=== PATIENT | female | born 1950 | race Caucasian/White ===

== ENCOUNTER 2017-09-23 07:38 | Outpatient (CLI) | payer BC | END 2017-09-23 07:39 | disposition home or self-care (01) | LOC: BICMAMMO 07:38 | PROVIDERS: ATTEND Obstetrics & Gynecology | DX: Z12.31 Encounter for screening mammogram for malignant neoplasm of breast (principal) | CPT/HCPCS: 77063; 77067 ==

== ENCOUNTER 2017-10-07 08:01 | Observation (INO) | payer BC ==
[2017-10-07 08:32] LABS: #Basophils 0.1 thou/uL (0.0-0.2); #Eosinphils 0.1 thou/uL (0.0-0.7); #Lymphocytes 1.4 thou/uL (1.20-3.40); #Monocytes 0.4 thou/uL (0.11-0.59); #Neutrophils 2.7 thou/uL (1.40-6.50); %Basophils 2.6 % (0.0-1.0); %Eosinophils 1.1 % (0.0-10.0); %Lymphocytes 30.3 % (21.0-51.0); %Monocytes 9.1 % (0.0-10.0); %Neutrophils 56.9 % (42.0-75.0); Hemoglobin 11.9 g/dL (12.0-16.0); Mean Corpuscular HGB CONC 31.5 g/dL (32.0-36.0); Mean Corpuscular Hemoglobin 29.3 pg (27.0-31.0); Mean Platelet Volume 7.1 fL (7.4-10.4); Platelet Count 308 thou/uL (130-400); RBC Distribution Width 14.4 % (11.5-14.5); Red Blood Cell (RBC) Count 4.05 mill/uL (4.20-5.40); White Blood Cell (WBC) Count 4.7 thou/uL (4.8-10.8)
--- NOTE | 2017-10-07 08:50 | RAD ---
CHEST ONE VIEW: History: Chest pain. Comparison: 11-29-15 FINDINGS: Cardiac silhouette is magnified and upper limits of normal in size. Pulmonary vasculature is slightly engorged with widespread reticular nodular interstitial prominence. Mediastinum is midline with aort ic calcification. There is no evidence of pneumothorax. IMPRESSION: 1. Mild pulmonary vascular congestion. 2. Atherosclerosis. POS: [facility]
[2017-10-07 08:54] LABS: CKMB 0.9 ng/mL (0-6.6); Troponin I Less than 0.010 ng/mL (< 0.028)
[2017-10-07] MEDS ORDERED: Fentanyl 100 MCG/2 ML VIAL ONE (09:01)
[2017-10-07] MEDS ORDERED: Ondansetron HCl/PF 4 MG/2 ML Vial ONE (09:08)
[2017-10-07 09:26] LABS: ALT (SGPT) 10 U/L (8-55); AST (SGOT) 13 U/L (5-34); Albumin 3.7 g/dL (3.4-4.8); Alkaline Phosphatase 78 U/L (40-150); Anion Gap 12 mmol/L (10-20); BUN (Urea Nitrogen) 5 mg/dL (9.8-20.1); Bilirubin, Total 0.5 mg/dL (0.2-1.2); CK (CPK) 32 U/L (29-168); Calc. Creatinine Clearance 0 mL/min (70-130); Calcium 9.3 mg/dL (7.8-10.44); Carbon Dioxide 24 mmol/L (23-31); Chloride 103 mmol/L (98-107); Estimated GFR-MDRD 79; Globulin 2.7 g/dL (2.4-3.5); Glucose 82 mg/dL (80-115); Lipase 15 U/L (8-78); Potassium 3.9 mmol/L (3.5-5.1); Protein, Total 6.4 g/dL (6.0-8.3); Sodium 135 mmol/L (136-145)
[2017-10-07] MEDS ORDERED: Pantoprazole 40 MG VIAL ONE (10:02)
[2017-10-07 11:48] LABS: Troponin I 0.015 ng/mL (< 0.028)
[2017-10-07] MEDS ORDERED: Ondansetron HCl/PF 4 MG/2 ML Vial IVP PRN (12:14)
[2017-10-07] MEDS ORDERED: Acetaminophen 325 MG TAB PO PRN (12:14)
[2017-10-07] MEDS ORDERED: Ondansetron ODT 4 MG TAB SL PRN (12:14)
[2017-10-07 12:16] VITALS: BMI 26.6
[2017-10-07] MEDS ORDERED: Nitroglycerin 0.4 MG TAB (25 Tab Bottle) PO PRN (12:39)
--- NOTE | 2017-10-07 13:16 | HP ---
DATE OF ADMISSION: 10/07/2017 HISTORY OF PRESENT ILLNESS: This is a 66-year-old white female with a history of anxiety disorder an d chest pain and vasospastic angina, followed by Dr. Rodriguez, who presents with chest pain. Patient has been doing well over the past year. Approximately 2 weeks ago, she began developing chest pain off and on throughout the day. The pain radiated to her left shoulder. She has had some mild nausea, bu t no vomiting. No complaints of diaphoresis. 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 She is in the process of planning a wedding and s he has become very unbearable. She has been quite demanding and the patient has been quite stressed from this ordeal. PAST MEDICAL HISTORY: 1. Vasospastic angina/Prinzmetal. 2. History of STEMI. 3. Reactive airway disease. 4. History of atrial fibrillation/flutter, 2006 5. Duodenal ulcer in 1998 6. Cardiac arrhythmias, treated since 1982. 7. Pernicious anemia, 2010. 8. Iron deficiency anemia, 2010 9. History of arthritis, right knee 10. History of hyperthyroidism, secondary to amiodarone. ALLERGIES: MORPHINE, IODINE, SHELLFISH, SEAFOOD, SHRIMP, ADHESIVE TAPE, TRAZODONE, and CAFFEINE. MEDICATIONS: Aspirin 81 daily, Protonix 40 b.i.d. p.r.n., isosorbide mononitrate 120 mg daily, [place] ax daily, Flonase 2 sprays each nostril daily, and B12 1000 mcg monthly, Cymbalta 60 daily, diltiazem 120 mg daily, Ranexa 1000 b.i.d., Singulair 10 daily, Zyrtec 10 daily, Pulmicort 2 puffs b.i.d. p.r. n. PAST SURGICAL HISTORY: Include appendectomy in 1968, 1982, right shoulder impingement and r otator cuff repair in 1997, cardiac ablation in 2006, 2007, 2008, 2009. Cardiac catheterization last one July 2014, clean vessels. Gallbladder 07/2010. History of myocardial infarction with eleva demarcus troponins in 2012 and 2013, colonoscopy 2010, abdominal adhesion repair in 1971, abdominal hyster ectomy in 1993. REVIEW OF SYSTEMS: As above. PHYSICAL EXAMINATION: VITAL SIGNS: Temperature 98.0, pulse 62, pulse ox 98, blood pressure 142/65, respirations 16. GENERAL: Patient in no acute distress at this time. HEENT: Clear. HEART: Regular rate and rhythm. LUNGS: Clear. ABDOMEN: Soft, nontender. EXTREMITIES: With no edema. LABORATORY AND X-RAY FINDINGS: Sodium 135, potassium 3.9, troponin less than 0.010 and 0.015, creati nine 0.74, BUN 5. White count 4.7, H and H 11 and 37. Chest x-ray: Mild pulmonary vascular congest ion. ASSESSMENT: 1. Chest pain, rule out myocardial infarction, rule out non-ST elevation myocardial infarction. 2. Acute situational disorder. The patient quite stressed from a pending wedding coming up in December. This is her main issue going on now. 3. History of vasospastic angina. 4. Reactive airway disease. 5. History of atrial fibrillation/flutter, 2006 6. History of peptic ulcer disease. 7. Pernicious anemia. 8. History of hyperthyroidism secondary to amiodarone. 9. Anxiety disorder. PLAN: 1. Consult Dr. Rodriguez. 2. Serial troponin levels. 3. Echocardiogram and Cardiolite. 4. Check TSH, T3, T4.
[2017-10-07 13:39] LABS: Free Thyroxine Index 1.78 (1.4-3.1); T4 6.3 ug/dL (4.87-11.72); Thyroid Stimulating Hormone 0.8117 uIU/mL (0.35-4.94)
[2017-10-07] MEDS ORDERED: Regadenoson 0.4 MG/5 ML SYRINGE ONE (14:58)
[2017-10-07 16:37] VITALS: BP 134/60; TEMP 97.5
--- NOTE | 2017-10-07 16:57 | NM ---
CARDIAC SPECT: CLINICAL HISTORY: 66-year-old female with chest pain, coronary artery disease, atrial fibrillation. TECHNIQUE: A myocardial perfusion scan was performed using the single isotope one day protocol with technetium-9 9m sestamibi. 9 mCi were injected intravenously for the rest exam followed by 29 mCi for the stress e xam. Pharmacologic stress with Lexiscan was monitored and interpreted by Maame Perez NP. FINDINGS: A fixed defect is seen in the distal anterior wall. Wall thickening and motion in this region is norm al. This finding is most likely due to breast attenuation artifact rather than a scar. No reversible defects are seen. GATED SPECT LVEF: 70%. WALL MOTION EXAM: Normal. IMPRESSION: No evidence of reversible ischemia. POS: [facility]
[2017-10-07] MEDS ORDERED: ALPRAZolam 0.25 MG TAB PO PRN (17:19)
[2017-10-07] MEDS ORDERED: Acetaminophen 500 MG TAB PO PRN (17:19)
[2017-10-07] MEDS ORDERED: ALPRAZolam 0.5 MG TAB PO PRN (17:20)
[2017-10-07] MEDS ORDERED: Benzonatate 100 MG CAP PO PRN (17:20)
[2017-10-07] MEDS ORDERED: Dicyclomine 10 MG CAP PO PRN (17:22)
[2017-10-07] MEDS ORDERED: Docusate 100 MG CAP PO PRN (17:30)
[2017-10-07] MEDS ORDERED: guaiFENesin ER 600 MG TAB PO PRN (17:30)
[2017-10-07] MEDS ORDERED: PROVENTIL INHALER 6.7 G (200 INHALATIONS) INH PRN (17:32)
[2017-10-07] MEDS ORDERED: Ondansetron ODT 4 MG TAB PO PRN (17:33)
[2017-10-07] MEDS ORDERED: traMADol HCl 50 MG TAB PO PRN ×2 (17:36)
[2017-10-07] MEDS ORDERED: Zolpidem Tartrate 5 MG TAB PO PRN (17:37)
[2017-10-07] MEDS ORDERED: Mometasone Furoate 120 PUFF 220 MCG INH SCH (18:30)
[2017-10-07 18:33] LABS: Troponin I Less than 0.010 ng/mL (< 0.028)
[2017-10-07] MEDS ORDERED: Montelukast Sodium 10 mg Tablet PO SCH (21:00)
[2017-10-07] MEDS ORDERED: Loratadine 10 MG TAB PO SCH (21:00)
[2017-10-07] MEDS ORDERED: Fluticasone Propionate Nasal Spray 16 gm Bottle NASAL SCH (21:00)
--- NOTE | 2017-10-07 21:13 | CON ---
DATE OF CONSULTATION: 10/07/2017 DATE OF ADMISSION: 10/07/2017 INDICATION FOR CONSULTATION: A 66-year-old female with a history of coronary vasospastic disease. S he has been catheterized a couple of years ago, was found to have single vessel CAD involving a diago nal branch, otherwise, she had normal coronary arteries. She has had multiple cardiac catheterizatio ns. 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 She awoke and started having chest discomfort actually started about 10 days ago on and off and then finally decided that the pain was worse than she would had and was not relieved by the nitro glycerin and she presented to the emergency room previously. Then, she has been doing very well for the last year or so and has been well controlled on the medical management. At this time, she has on ly mild chest discomfort. She had a stress test today, which showed no evidence of ischemia. Cardia c enzymes are negative. EKG is unremarkable. PAST MEDICAL HISTORY: Significant for Prinzmetal angina, history in the past of non-ST segment eleva tion myocardial infarction or ST segment elevation myocardial infarction may have involved in the ape x. She has reactive airway disease, history of atrial fibrillation/flutter, for which she has underg one ablation. She has a history of pernicious anemia, duodenal ulcer, iron-deficiency anemia. She h as had arthritis in the right knee. She has a history of side effects to amiodarone, which would cau se her to have some hypothyroidism. ALLERGIES: She has allergies to AMIODARONE, MORPHINE, IODINE, SEAFOOD, SHELLFISH, SHRIMP, ADHESIVE T APE, TRAZODONE, and CAFFEINE. MEDICATIONS: Included aspirin, isosorbide mononitrate which is 120 mg every day, MiraLax, Protonix 4 0 mg b.i.d., Flonase nasal spray, B12 injections, Cymbalta 60 mg daily, diltiazem 120 mg a day, Ranex a 1000 mg b.i.d., Singulair 10 mg a day, Zyrtec 10 mg a day, and Pulmicort 2 puffs b.i.d. PAST SURGICAL HISTORY: Also includes an appendectomy, right shoulder surgery. She has , ca rdiac ablations, cardiac catheterizations. She has had a cholecystectomy, colonoscopy. She has had abdominal adhesion repairs and she has had abdominal hysterectomy. REVIEW OF SYSTEMS: Twelve-point review of systems is unremarkable except what was noted in the histo ry of present illness. PHYSICAL EXAMINATION: GENERAL: Reveals a well-developed, well-nourished female who is in no acute distress. She is alert and oriented. VITAL SIGNS: Stable. She has blood pressure 134/60. She is afebrile. Heart rate is 70, respirator y rate is 16. HEENT: Shows the head to be normocephalic, atraumatic. Carotid pulses are present. There are no br uits. CHEST: Clear to auscultation without rales, rhonchi, or wheezing. CARDIOVASCULAR: Exam reveals a regular rate and rhythm with normal S1, S2. There is no S3, S4. The re were no significant murmurs, heaves, thrills, bruits, or rubs. ABDOMEN: Shows obesity with positive bowel sounds. No organomegaly or masses are noted. Femoral pu lses are present. EXTREMITIES: Showed no clubbing, cyanosis, or edema. Pedal pulses are present. NEUROLOGIC: The patient is intact. SKIN: Warm and dry. IMAGING: Her EKG shows a normal sinus rhythm and no acute changes. She does have some very nonspeci fic ST segment changes, but these are unchanged. There is no acute findings. Her stress test is neg ative. Cardiac enzymes are unremarkable. IMPRESSION: 1. History of vasospastic coronary artery disease, which appears to be stable at this time. She garcia s have intermittent discomfort, which normally is relieved by nitroglycerin. She does appear to be u ndue stress at this time in which anxiety plays quite a large role, I believe in some of her symptoms . Otherwise, she remains stable and from a cardiac standpoint, could be discharged home today or damian orrow morning. I would continue her present medications. 2. As far as her other assessment and plans, she has some history of mild hypertension, which is und er very good control at this time. 3. She has a history of hypercholesterolemia, we will continue on the same medications. 4. History of anxiety. She will be followed by her primary care physician for this. Otherwise, I sarah blair she remains stable and I will see her back in the office in the next 1-2 months.
[2017-10-08] MEDS ORDERED: Polyethylene Glycol 3350 17 GM Packet PO SCH (09:00)
[2017-10-08] MEDS ORDERED: Aspirin 325 MG TAB PO SCH (09:00)
[2017-10-08] MEDS ORDERED: Enoxaparin Sodium 80 MG/0.8 ML SYRINGE SC SCH (09:00)
[2017-10-08] MEDS ORDERED: DULoxetine 60 MG CAP PO SCH (09:00)
[2017-10-08] MEDS ORDERED: Enoxaparin Sodium 40 MG/0.4 ML SYRINGE SC SCH (09:00)
--- NOTE | 2017-10-08 14:43 | DIS ---
DISCHARGE DIAGNOSES: 1. Chest pain. 2. Vasospastic angina. 3. History of ST-segment elevation myocardial infarction. 4. Reactive airway disease. 5. History of atrial fibrillation/flutter. 6. History of peptic ulcer disease. 7. History of cardiac arrhythmia. 8. Pernicious anemia. 9. Iron deficiency anemia. 10. History of hyperthyroidism secondary to amiodarone. DISCHARGE MEDICATIONS: Aspirin 81 daily, Protonix 40 b.i.d. p.r.n., isosorbide mononitrate 120 daily , MiraLax daily, Flonase daily, B12 monthly, Cymbalta 60 daily, diltiazem 120 daily, Ranexa 1000 b.i. d., Singulair 10 daily, Zyrtec 10 mg daily, Pulmicort 2 puffs b.i.d. p.r.n. PROCEDURES: Cardiolite stress test negative. CONSULTS: Dr. Rodriguez. BRIEF HISTORY: A 66-year-old white female with history of vasospastic angina who presents with chest pain. She has done fairly well over the past year. Two weeks ago she began developing chest pain o ff and on throughout the day. It became progressively worse. It began radiating to her left shoulde r and therefore presented to the emergency room. However, she has been under stress lately. She was having issues with her [id number] who is planning for their wedding. This has become a very st ressful event. HOSPITAL COURSE: The patient underwent a Cardiolite stress test which was found to be unremarkable. She was seen by Dr. Rodriguez and was felt to be stable at this time. She will be discharged home today and follow up in the office in 1 week.
== END 2017-10-07 18:34 | disposition home or self-care (01) ==
LOC: ERS 08:01 → 2NO 10:07 → INTOOBSV 10:07
PROVIDERS: ADMIT Family Medicine; ATTEND Family Medicine
DX: I25.111 Atherosclerotic heart disease of native coronary artery with angina pectoris with documented spasm (principal); I25.2 Old myocardial infarction; I48.91 Unspecified atrial fibrillation; I48.92 Unspecified atrial flutter; Z87.11 Personal history of peptic ulcer disease; D51.0 Vitamin B12 deficiency anemia due to intrinsic factor deficiency; D50.9 Iron deficiency anemia, unspecified; M17.11 Unilateral primary osteoarthritis, right knee; F41.9 Anxiety disorder, unspecified; E78.00 Pure hypercholesterolemia, unspecified; Z88.8 Allergy status to other drugs, medicaments and biological substances; Z88.5 Allergy status to narcotic agent; Z91.048 Other nonmedicinal substance allergy status; Z91.041 Radiographic dye allergy status; Z91.013 Allergy to seafood; Z90.49 Acquired absence of other specified parts of digestive tract; Z90.710 Acquired absence of both cervix and uterus; Z98.890 Other specified postprocedural states; Z79.899 Other long term (current) drug therapy; Z79.51 Long term (current) use of inhaled steroids; Z79.82 Long term (current) use of aspirin
CPT/HCPCS: 36415; 71045; 78452; 80053; 82550; 82553; 83690; 84436; 84443; 84479; 84484; 85025; 93005; 93017; 94760; 96374; 96375; A9500; C9113; G0378; J2405; J2785; J3010

== ENCOUNTER 2017-11-07 13:15 | Inpatient (IN) | payer BC ==
[2017-11-07] MEDS ORDERED: Fentanyl 100 MCG/2 ML VIAL ONE (13:34)
[2017-11-07 13:49] LABS: #Basophils 0.1 thou/uL (0.0-0.2); #Lymphocytes 1.5 thou/uL (1.20-3.40); #Monocytes 0.5 thou/uL (0.11-0.59); #Neutrophils 2.5 thou/uL (1.40-6.50); %Basophils 1.7 % (0.0-1.0); %Eosinophils 1.1 % (0.0-10.0); %Lymphocytes 32.8 % (21.0-51.0); %Monocytes 9.8 % (0.0-10.0); %Neutrophils 54.6 % (42.0-75.0); Hemoglobin 11.2 g/dL (12.0-16.0); Mean Corpuscular HGB CONC 32.9 g/dL (32.0-36.0); Mean Corpuscular Hemoglobin 30.3 pg (27.0-31.0); Mean Corpuscular Volume 92.3 fl (81.0-99.0); Mean Platelet Volume 6.4 fL (7.4-10.4); Platelet Count 323 thou/uL (130-400); RBC Distribution Width 13.8 % (11.5-14.5); Red Blood Cell (RBC) Count 3.69 mill/uL (4.20-5.40); White Blood Cell (WBC) Count 4.5 thou/uL (4.8-10.8)
[2017-11-07] MEDS ORDERED: ISOVUE-370 76%-LOCM 1 ML ONE (13:53)
[2017-11-07 14:11] LABS: ALT (SGPT) 11 U/L (8-55); AST (SGOT) 14 U/L (5-34); Alkaline Phosphatase 78 U/L (40-150); Anion Gap 15 mmol/L (10-20); BUN (Urea Nitrogen) 13 mg/dL (9.8-20.1); Bilirubin, Total 0.7 mg/dL (0.2-1.2); Calc. Creatinine Clearance 0 mL/min (70-130); Calcium 9.5 mg/dL (7.8-10.44); Carbon Dioxide 21 mmol/L (23-31); Chloride 103 mmol/L (98-107); Estimated GFR-MDRD 73; Globulin 2.8 g/dL (2.4-3.5); Glucose 84 mg/dL (80-115); Potassium 3.9 mmol/L (3.5-5.1); Protein, Total 6.8 g/dL (6.0-8.3); Sodium 135 mmol/L (136-145)
[2017-11-07 14:14] LABS: CKMB 0.9 ng/mL (0-6.6); Troponin I Less than 0.010 ng/mL (< 0.028)
[2017-11-07] MEDS ORDERED: diphenhydrAMINE 50 MG/ML VIAL ONE (14:15)
[2017-11-07] MEDS ORDERED: methylPREDNISolone Sod Succ/PF 125 MG/2 ML VIAL ONE (14:15)
[2017-11-07] MEDS ORDERED: Famotidine/PF 20 mg/2ml Vial ONE (14:15)
[2017-11-07] MEDS ORDERED: Ondansetron HCl/PF 4 MG/2 ML Vial ONE (14:47)
--- NOTE | 2017-11-07 16:11 | RAD ---
UPRIGHT PORTABLE CHEST ONE VIEW: 11/07/17 HISTORY: 66-year-old female with history of chest pain and low back pain with syncope at home. Heart size is within normal limits. Stable increased markings noted bilaterally. No confluent pneumon ia, overt edema or pleural effusion. IMPRESSION: No acute intrathoracic disease. Stable from prior study. No confluent pneumonia or overt edema. POS: [facility]
[2017-11-07 16:52] LABS: Troponin I 0.014 ng/mL (< 0.028)
--- NOTE | 2017-11-07 17:35 | CT ---
CT ANGIOGRAM CHEST INCLUDING 3D RENDERING CT ANGIOGRAM ABDOMEN INCLUDING 3D RENDERING 11/07/17 HISTORY: 66-year-old female with history of chest pain and syncope. There is no evidence for thoracic aortic aneurysm or dissection. There is inadequate contrast within the pulmonary arteries to evaluate for other than large central pulmonary emboli. There is some three vessel coronary calcific changes as well as some calcification of the wall of the left atrium. In th e abdomen, there is no evidence of aortic aneurysm or dissection. The celiac, SMA, and inferior mesen teric arteries are unremarkable. Bilateral renal arteries are patent. Status post cholecystectomy. IMPRESSION: No CT evidence for aortic aneurysm or dissection. No evidence for other significant acute process. POS: [facility]
[2017-11-07 19:41] LABS: Troponin I Less than 0.010 ng/mL (< 0.028)
[2017-11-07] MEDS ORDERED: Docusate 100 MG CAP PO PRN (21:45)
[2017-11-07] MEDS ORDERED: Mometasone Furoate 120 PUFF 220 MCG INH PRN (21:45)
[2017-11-07] MEDS ORDERED: Dicyclomine 10 MG CAP PO PRN (21:45)
[2017-11-07] MEDS ORDERED: PROVENTIL INHALER 6.7 G (200 INHALATIONS) INH PRN (21:45)
[2017-11-07] MEDS ORDERED: Fluticasone Propionate Nasal Spray 16 gm Bottle NASAL SCH (22:30)
[2017-11-07] MEDS ORDERED: Montelukast Sodium 10 mg Tablet PO SCH (22:30)
[2017-11-07] MEDS ORDERED: Loratadine 10 MG TAB PO SCH (22:30)
[2017-11-07] MEDS ORDERED: Diltiazem HCl SR 60 mg Capsule PO SCH (22:30)
[2017-11-07 22:45] LABS: Troponin I Less than 0.010 ng/mL (< 0.028)
[2017-11-07] MEDS: ALPRAZolam 0.25 MG TAB PO PRN (22:48)
--- NOTE | 2017-11-08 00:34 | HP ---
PRIMARY CARE PHYSICIAN: Dr. Praveen North. CHIEF COMPLAINT: Syncopal episode. HISTORY OF PRESENT ILLNESS: This is a 66-year-old female patient with multiple medical problems including Prinzmetal's angina, anxiety, hypertension, coronary artery disease, history of atrial fibrillation/flutter, persistent anemia, asthma, reactive airway disease, who presented to the emergency department tonight following an episode of syncope. The patient states that she woke up this morning about 5:00 a.m. with chest pain, which is not unusual. She was able to fall back asleep, but then woke up later in the morning. She was making breakfast about 10:00 a.m. She was stressed by her dog scratching her arm and she was trying to feed her, increased her pain, and once that pain and stressed increase, she developed weakness and clamminess. Her son was nearby. She could tell that she was going to pass out and her son helped her to the chair. She states that she did have loss of consciousness. She stopped breathing. The son and the were around her at this time. They stated that they were not able to feel a pulse and she was not responsive. The is a respiratory therapist. He was able to start doing compressions, but once he started that she was able to start breathing on her own immediately. She states that she did have a gasping breath at that time. The and son do state that she did have some shaking episodes and tremors during her episode when she had lost consciousness, but no vigorous shaking or seizure activity that was witnessed except for the syncope and the tremulousness of her hands. The patient states that this episode happened about 11-12 and it took about 5-6 hours for her symptoms to resolve, for which she continued to have confusion, she had difficulty finding words, she could not move correctly. Even now she states that she is not thinking clearly and has a difficult time doing calculations in her brain. In the emergency department, she had a workup including cardiac workup. Her cardiac enzymes were negative. She was mildly anemic. The ER doctor was suspicious of a dissection due to her symptoms. She had a CT of the chest, which was normal. Chest x-ray was normal. She is now being admitted for further evaluation and treatment. 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 ALLERGIES: MORPHINE, IODINE, SHELLFISH, SEAFOOD, SHRIMP, ADHESIVE TAPE, TRAZODONE, and CAFFEINE. PAST SURGICAL HISTORY: Includes appendectomy in 1968, in 1982, right shoulder repair in 1997, cardiac ablations in 2006, 2007, 2008, and 2009, cardiac catheterization in 2006, 2012, and 2013, cholecystectomy in 2009. She had pneumonia in 2009, interstitial pneumonia in 2011. She had type A influenza in 07/2017 with subsequent pneumonia in 08/2017. PA with elevated troponin in 2012, and in [address]-elevation PA. Colonoscopy in 2010. MEDICATIONS: Include aspirin 81 mg daily, Cymbalta 60 mg daily, isosorbide mono 120 mg daily, MiraLax daily, Ranexa 1000 mg b.i.d., vitamin B12 1000 mcg monthly, Flonase daily, diltiazem 120 mg daily at 6:00 p.m., Zyrtec 10 mg daily , Singulair 10 mg daily, Protonix p.r.n., Pulmicort p.r.n., alprazolam 0.25 mg p.r.n., Bentyl 10 mg p.r.n., Xopenex 2 puffs p.r.n., Tylenol p.r.n. REVIEW OF SYSTEMS: As per the history of present illness. General: She denies any recent fevers or chills since the flu in July. HEENT: No headache, visual or hearing changes. No congestion. Cardiac: As per the history of present illness. Pulmonary: No cough or hemoptysis. She has a history of asthma. Gastrointestinal: No nausea, vomiting, abdominal pain, melena, hematochezia. Genitourinary: No dysuria or hematuria. Neurologic: As per the history of present illness. No history of seizures in the past. Musculoskeletal: Positive knee pain. PHYSICAL EXAMINATION: VITAL SIGNS: In the emergency department, temperature 97.8, pulse of 60, respirations 28, blood pressure 131/77, pulse ox is 100% on room air. GENERAL: She is awake and alert. Speech is clear. She has some pressured speech. HEENT: Mucosa is moist. NECK: Supple, no JVD, adenopathy, or bruits. HEART: Regular rate and rhythm without murmurs. LUNGS: Clear bilaterally. ABDOMEN: Flat, soft, nontender, nondistended. EXTREMITIES: No clubbing, cyanosis, or edema. A 2+ peripheral pulses bilaterally. NEUROLOGIC: Cranial nerves II-XII are grossly intact. Strength is 5/5 bilaterally. Sensation is intact bilaterally. LABORATORY DATA: White blood cell count 4.5, hemoglobin and hematocrit 11.2 and 34, platelets of 323. Sodium 135, potassium 3.9, chloride 103, CO2 of 21, BUN and creatinine 13 and 0.79, serum glucose of 84, calcium of 9.5 with albumin of 4.0. Liver enzymes are normal. Cardiac enzymes are negative. Urinalysis is pending. Again, CT chest showed no dissection, no aneurysm. Chest x-ray showed no active disease. ASSESSMENT AND PLAN: This is a 66-year-old female patient with multiple medical problems, now status post syncopal episode. 1. We will need to rule out seizure activity. We will consult Neurology for evaluation. We will initiate orders for MRI and EEG. 2. History of coronary artery disease, dysrhythmias, Printzmetal's angina. It seems doubtful that she had a cardiac arrest due to normal EKG and negative cardiac enzymes. I will check echocardiogram, carotid Dopplers, and consult Cardiology for evaluation. 3. History of hypertension and Printzmetal's angina. We will continue diltiazem, Ranexa, and Imdur as well as aspirin. 4. History of anxiety. She is on Cymbalta and alprazolam p.r.n., possible conversion disorder as well, but we will need to complete workup. [facility]
[2017-11-08 02:22] LABS: Bilirubin Negative (Negative); Blood, Urine Negative (Negative); Clarity CLEAR (Clear); Glucose, Urine (Dipstick) Negative (Negative); Leukocyte Negative (Negative); Nitrite Negative (Negative); Protein, Urine (Dipstick) Negative (Neg-Trace); Specific Gravity, Urine 1.023 (1.002-1.036)
[2017-11-08] MEDS: Nitroglycerin 0.4 MG TAB (25 Tab Bottle) SL PRN ×3 (02:49→03:02)
[2017-11-08 05:06] LABS: #Lymphocytes 0.8 thou/uL (1.20-3.40); #Monocytes 0.1 thou/uL (0.11-0.59); #Neutrophils 5.3 thou/uL (1.40-6.50); %Basophils 0.4 % (0.0-1.0); %Eosinophils 0.2 % (0.0-10.0); %Lymphocytes 12.3 % (21.0-51.0); %Monocytes 1.8 % (0.0-10.0); %Neutrophils 85.3 % (42.0-75.0); Hemoglobin 10.5 g/dL (12.0-16.0); Mean Corpuscular HGB CONC 33.6 g/dL (32.0-36.0); Mean Corpuscular Hemoglobin 30.3 pg (27.0-31.0); Mean Corpuscular Volume 90.3 fl (81.0-99.0); Mean Platelet Volume 6.5 fL (7.4-10.4); Platelet Count 280 thou/uL (130-400); Red Blood Cell (RBC) Count 3.45 mill/uL (4.20-5.40); White Blood Cell (WBC) Count 6.2 thou/uL (4.8-10.8)
[2017-11-08] MEDS: Acetaminophen 500 MG TAB PO PRN (07:25)
[2017-11-08] MEDS: DULoxetine 60 MG CAP PO SCH (08:14)
[2017-11-08] MEDS: Polyethylene Glycol 3350 17 GM Packet PO SCH (08:15)
--- NOTE | 2017-11-08 11:56 | PRG ---
DATE OF SERVICE: 11/08/2017 SUBJECTIVE: The patient is feeling significantly better. Per her and her , she is almost at her baseline. Her mentation is cleared. She is able to think more clearly this morning as well. Love burciaga has not had any more shaking episodes or tremors. Denies chest pain or shortness of breath. Chiquis s falls. She was able to walk to the bathroom. She did feel somewhat unsteady, but better than yest juanjoseay. Workup is in progress. OBJECTIVE: VITAL SIGNS: Temperature 98.5, pulse of 70, respirations 16, blood pressure 122/63, pulse ox is 98% on room air. GENERAL: She is awake and alert, in no acute distress. Speech is clear and fluid. NECK: Supple, no bruits. HEART: Regular rate and rhythm with no murmurs. LUNGS: Clear. ABDOMEN: Soft. EXTREMITIES: With no edema. NEUROLOGIC: Cranial nerves II-XII are grossly intact. Strength is 5/5 bilaterally. LABORATORY DATA: Troponin I's continued to be negative. White blood cell count 6200, hemoglobin and hematocrit 10.5 and 31.2, platelets of 280. MRI of the brain, carotid Doppler, and echocardiogram a re all pending at this time. EEG has not been done and likely to be done tomorrow. ASSESSMENT AND PLAN: This is a 66-year-old female patient, 1. Status post syncopal episode while at home. Questionable seizure, questionable cardiac arrest du e to a short period of inability to find a pulse by the family. She is now close to back to her base line. Appreciate Neurology evaluation to help rule out a seizure or any other neurological deficit. Await MRI and EEG evaluation. 2. History of coronary artery disease, dysrhythmia, Printzmetal's angina, seems doubtful that it wou ld have been a cardiac arrest due to her normal labs, normal troponins. Await echocardiogram and Car diology for evaluation. 3. Hypertension. We will continue diltiazem. 4. Prinzmetal's angina. We will continue Ranexa, Imdur, and aspirin. 5. History of anxiety. Continue Cymbalta and alprazolam. She seems to be more at ease today than y . 6. Anemia, which is chronic. We will continue to follow to ensure that is not trending downward. 7. Weakness. We will check a.m. cortisol and thyroid as well.
--- NOTE | 2017-11-08 12:39 | ULT ---
BILATERAL CAROTID DUPLEX ULTRASOUND INCLUDING COLOR AND SPECTRAL DOPPLER IMAGING: HISTORY: A 66-year-old female with a history of syncope. FINDINGS: There is some visual plaque in the proximal ICAs bilaterally. PSV right ICA 79 cm/s, EDV 15 cm/s, ICA/CCA ratio 0.9. PSV left ICA 92 cm/s, EDV 21 cm/s, ICA/CCA ratio 0.9. Vertebral flow is antegrade. IMPRESSION: No hemodynamically significant stenosis. Evidence for bilateral carotid artery arteriovascular ather osclerotic disease. POS: [facility]
--- NOTE | 2017-11-08 13:30 | MRI ---
PRE AND POSTCONTRAST ENHANCED IMAGES BRAIN: HISTORY: Patient who passed and was told stopped breathing. No pulse. FINDINGS: Multiplanar, multisequence pre- and postcontrast-enhanced MRI images of brain obtained. RADIOGRAPHIC FINDINGS: No evidence of intracranial masses, hemorrhages, strokes, or contusions seen. The ventricles are of normal size. No abnormal areas of intracranial enhancement seen. No evidence of areas of diffusion restriction seen. IMPRESSION: No evidence of acute intracranial pathology is seen. POS: [facility]
--- NOTE | 2017-11-08 15:21 | CON ---
DATE OF CONSULTATION: 11/08/2017 CHIEF COMPLAINT: Acute syncope. HISTORY OF PRESENT ILLNESS: The patient and gave me the medical history. 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 The patient was actually feeding her dogs yesterday and one of the dogs scratched her. She went to wash her hand and she started to feel like she was about to pass out, so she called her son and they quickly got her down, but the patient's stated s he lost her pulse and they could not feel her pulse. He quickly ran to the bedroom to bring his phon e, so he could call 911 and start CPR while her son was attending to her. The patient's reca lls thumping on her chest once and then started chest compressions. At the same time, he could feel she gasped and first took a very deep breath and woke up and started to again faint, but they were ab le to revive her without much difficulty and she was quite diaphoretic and pale and was brought to [facility] ER by EMS. The patient's also stated when the son was with her, he noted right hand tremor that her right hand shook right at the time and she lost her pulse, she did have eye rolling backwar ds. She did not have any incontinence or jerkiness of any other areas of the body or generalized ton ic clonic convulsions during this incident and the total time she was out was reported to me as being 1 minute. The patient is known to have Prinzmetal angina. She has an electrophysiology cardiologis t who looks after her in [place], [place] and the patient has had intermittent tremor in the right hand and she also has history of having near syncope, but she stated to me that she never had a cardiac ar rest. PAST MEDICAL HISTORY: The patient has vasospastic angina, ST elevation CO 3 times between 2012 and 014, reactive airway disease, atrial fibrillation and flutter, oblique 5 cardiac ablation procedures. She has Prinzmetal angina since childhood. 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 PAST SURGICAL HISTORY: She has had multiple surgeries including appendectomy; ; right shoul baltazar repair; cardiac ablations 5 times so far; cardiac catheterization 3 times and no coronary artery disease; cholecystectomy in 2010; pneumonia in 2010; ST elevation MIs in the past, last surgery was i n 2013. ALLERGIES: She has allergic to MORPHINE, IODINE, SHELLFISH, SEAFOOD, SHRIMP, ADHESIVE TAPE, TRAZODON E and CAFFEINE. MEDICATIONS: She takes aspirin, Cymbalta, isosorbide mononitrate, MiraLax, Ranexa, vitamin B12, Flon ase, Valium, Zyrtec, Singulair, Protonix, Pulmicort, alprazolam, Bentyl and Xopenex. REVIEW OF SYSTEMS: Pulmonary: Normal. Cardiac: Cardiac arrest and resuscitation by and in termittent chest pains. Neurological: Positive for tremor and also near syncope. Endocrine: Posit cassy for hypothyroidism. Dermatologic: Easy bruising due to high dose Ranexa. Gastrointestinal: No rmal. PHYSICAL EXAMINATION: VITAL SIGNS: Blood pressure 118/57, temperature 97.7, pulse 67, respiratory 18 and O2 sats 99. GENERAL APPEARANCE: A well-built, well-nourished lady who seems to be somewhat anxious due to this e vent. CHEST: Clear vesicular breathing. CARDIOVASCULAR: S1 and S2 heard. No murmurs were heard. ABDOMEN: Soft and nontender. NEUROLOGIC: Higher intellectual functions. Normal orientation to time, place, person and appropriat e conversation. Cranial nerves II-XII normal. Normal pupillary reaction. Normal extraocular moveme nts. Fundus normal. No facial asymmetry. Normal sensation of face bilaterally. Tongue midline. N o atrophy noted and normal elevation of palate. MOTOR: Bulk normal, tone normal, strength 5/5 in iliopsoas, hamstrings, quadriceps, ankle dorsiflexi on and plantar flexion, deltoid, biceps, triceps, wrist extension and flexion, finger extension and f lexion bilaterally. Deep tendon reflexes 2+ throughout in upper and lower extremities in biceps, bra chioradialis, and triceps and knee jerks and ankle jerks. SENSORY: Normal to touch, pinprick, proprioception and vibration bilaterally. CEREBELLAR: Normal [id number]-[id number] and uzjw-ag-aqes bilaterally. LABORATORY DATA: Laboratory workup so far; white count 6.2, hemoglobin 10.5, hematocrit 31.2 and paige telets 280. Sodium 135, potassium 3.9, chloride 103, bicarbonate 21, BUN 13, creatinine 0.79, AST 14 , ALT 11 and alkaline phosphatase 78. IMAGING DATA: MRI of the brain has been completed, but pending report. Carotid Doppler has been com pleted, but pending report. CT of the chest and abdomen to rule out aortic aneurysm was negative. IMPRESSION: The patient is a 66-year-old lady with cardiac arrest and revival within 1 minute by hus band at this time. They are concerned that whether she might have had a seizure due to eye rolling a s well as right upper extremity tremor. She remained stable. No further neurologic events are notic ed. Her examination is normal neurologically. At this time, this is more likely cardiac event and s ome reemergence of her right upper extremity tremor, which she normally has had for 10 years, which i s described as intermittent right upper extremity tremor; however, to be thorough, we can complete he r EEG and will also review her MRI of the brain and carotid Doppler results. RECOMMENDATIONS: 1. Please complete her EEG, which can be done in the morning unless she has another event since she remains stable neurologically. 2. I will follow up on her MRI report. 3. Dr. Mejía will follow up on patient tomorrow.
[2017-11-08] MEDS: Diltiazem HCl SR 60 mg Capsule PO SCH (17:51)
[2017-11-08] MEDS: Montelukast Sodium 10 mg Tablet PO SCH (21:34)
[2017-11-08] MEDS: Loratadine 10 MG TAB PO SCH (21:34)
[2017-11-08] MEDS: ALPRAZolam 0.25 MG TAB PO PRN (21:35)
[2017-11-08] MEDS: Fluticasone Propionate Nasal Spray 16 gm Bottle NASAL SCH (21:35)
--- NOTE | 2017-11-09 04:14 | CON ---
DATE OF CONSULTATION: 11/08/2017 HISTORY: Mar James is a 66-year-old white female, patient of Dr. Rodriguez who has history of vasospastic angina. Last catheterization, she was found to have single-vessel coronary artery disease involving a diagonal, but otherwise unremarkable coronary arteries. She also has had multiple ablations - 5, she states for atrial fibrillation. She states that she frequently awakes in the morning with some left-sided chest discomfort. That woke her up yesterday morning approximately 5:00 a.m. She went back to sleep. She got up to make breakfast about 10:00 a.m. and she was still having mild discomfort. She became somewhat weak, mildly diaphoretic, called for her son to help her, and she did apparently have loss of consciousness. She also apparently stopped breathing. Her who is a respiratory therapist could not feel a pulse, and so he started CPR. She then awakened. She did not have any seizure activity. There was no tonic-clonic movement, no tongue biting or urinary incontinence. It took her several hours to return mentally to her baseline. In the emergency room, she underwent CT angiogram of the chest, which was unremarkable. She has never had a syncopal episode previously. PAST MEDICAL HISTORY: ST-elevation myocardial infarction in 2012 and 2013, reactive airways disease, history of atrial fibrillation, status post 5 ablations according to the patient, iron-deficiency anemia. ALLERGIES: She developed hypothyroidism with AMIODARONE, MORPHINE, IODINE, SEAFOOD, SHELLFISH, ADHESIVE TAPE, TRAZODONE, and CAFFEINE. MEDICATIONS: Alprazolam 0.5 daily p.r.n., aspirin 81 mg daily, Tessalon 100 mg t.i.d. p.r.n., Pulmicort inhaler 100 t.i.d., Zyrtec 10 at bedtime, Bentyl 10 q.i.d. p.r.n., diltiazem 120 daily, Colace 100 mg b.i.d. p.r.n., Cymbalta 60 daily, Flonase nasal spray, Mucinex 600 b.i.d., isosorbide mononitrate 120 daily , Xopenex 2 puffs q.6 hours p.r.n., Singulair 10 mg daily, nitroglycerin 0.4 mg sublingual p.r.n., Zofran p.r.n., Protonix 40 mg b.i.d. p.r.n., Ranexa 1000 mg b.i.d., Ambien 5 mg at bedtime p.r.n., MiraLax. OPERATIONS: Appendectomy, five cardiac ablations, cholecystectomy, colonoscopy , hysterectomy. REVIEW OF SYSTEMS: Twelve-point review of systems, otherwise unremarkable. PHYSICAL EXAMINATION: VITAL SIGNS: 108/55, pulse 69. HEENT: PERRL. NECK: Supple. CHEST: Clear. CARDIAC: S1, S2 normal without any S3, S4, or murmurs. ABDOMEN: Normal bowel sounds. EXTREMITIES: Revealed no clubbing, cyanosis, or edema. NEUROLOGIC: Grossly intact. LABORATORY DATA: EKG reveals normal sinus rhythm with nonspecific ST-segment changes, no acute changes. Hemoglobin 10.5, hematocrit 31.2, white count 6200, platelets 280,000. Sodium 135, potassium 3.9, chloride 103, carbon dioxide 21, BUN 13, creatinine 0.79. Cardiac enzymes are unremarkable x4. IMPRESSION: 1. Syncopal episode. The exact etiology of this is unclear, but certainly would seem to be some type of cardiac event with her not being able to feel a pulse. This could represent prolonged sinus pause. Also, this occurred in the setting of her having one of her Prinzmetal's angina attack and certainly this may also have been due to ventricular tachycardia from the ischemia. 2. History of atrial fibrillation ablation, 5 times. 3. Printzmetal's angina. 4. History of myocardial infarction. 5. Iron deficiency anemia. 6. Hypothyroidism with amiodarone. PLAN: Patient will continue to be monitored. Echocardiogram will be performed. [facility]
[2017-11-09 05:35] LABS: #Basophils 0.1 thou/uL (0.0-0.2); #Lymphocytes 2.6 thou/uL (1.20-3.40); #Monocytes 0.6 thou/uL (0.11-0.59); %Basophils 0.8 % (0.0-1.0); %Eosinophils 0.1 % (0.0-10.0); %Lymphocytes 27.7 % (21.0-51.0); %Monocytes 6.5 % (0.0-10.0); %Neutrophils 64.8 % (42.0-75.0); Hemoglobin 10.3 g/dL (12.0-16.0); Mean Corpuscular HGB CONC 33.5 g/dL (32.0-36.0); Mean Corpuscular Volume 92.5 fl (81.0-99.0); Mean Platelet Volume 6.7 fL (7.4-10.4); Platelet Count 264 thou/uL (130-400); RBC Distribution Width 14.1 % (11.5-14.5); Red Blood Cell (RBC) Count 3.31 mill/uL (4.20-5.40); White Blood Cell (WBC) Count 9.3 thou/uL (4.8-10.8)
[2017-11-09 06:10] LABS: Anion Gap 13 mmol/L (10-20); BUN (Urea Nitrogen) 10 mg/dL (9.8-20.1); Calc. Creatinine Clearance 96 mL/min (70-130); Calcium 8.7 mg/dL (7.8-10.44); Carbon Dioxide 24 mmol/L (23-31); Chloride 99 mmol/L (98-107); Estimated GFR-MDRD 83; Glucose 89 mg/dL (80-115); Potassium 3.6 mmol/L (3.5-5.1); Sodium 132 mmol/L (136-145)
[2017-11-09] MEDS: DULoxetine 60 MG CAP PO SCH (08:34)
[2017-11-09] MEDS: Polyethylene Glycol 3350 17 GM Packet PO SCH (08:34)
--- NOTE | 2017-11-09 08:44 | PRG ---
DATE OF SERVICE: 11/09/2017 SUBJECTIVE: The patient is without any chest pain, shortness of breath, nausea, vomiting, headache. She states she had an episode of palpitations at approximately 7:00 a.m. this morning. The patient was doing well until Thursday morning in which she was sitting at the breakfast table. She states th at her dog scratched her left forearm which has multiple abrasions. Following this episode she becam e lightheaded and passed out. The son and were there and they began administering CPR. The patient states she came to immediately; however, she was confused for approximately 5 hours. Thus fa r she has had an MRI of her head, CT of her chest, carotid Dopplers and echocardiogram. The results have been unremarkable. The echo report is pending. OBJECTIVE: VITAL SIGNS: Temperature 98.4, pulse 63, respirations 20, pulse ox 98, blood pressure 118/57. GENERAL: The patient is in no acute distress at this time. HEENT: Clear. HEART: Regular rate and rhythm. LUNGS: Clear. ABDOMEN: Soft. EXTREMITIES: No edema. LABORATORY: White count 9.3, H&H of 10 and 30, platelet 264. Sodium 132, potassium 3.6, creatinine 0.71, BUN 10. Troponin less than 0.010. TSH 1.04. ASSESSMENT: 1. Syncopal episode, rule out vasovagal episode, rule out seizure, rule out cardiac arrhythmia. Tyler ro evaluation has been unremarkable. It was suspected that this may be cardiac in origin. 2. History of coronary disease. 3. Prinzmetal angina. 4. Hypertension. 5. History of anxiety. The patient is under extreme stress. She is having marked issues with her f jenniure [id number]. The patient's revealed that she is excited that she does not have to attend t he wedding shower, which is this weekend in [place]. 6. Anemia. PLAN: 1. Will check telemetry. 2. Dr. Rodriguez to see. 3. Further recommendations per Dr. Rodriguez.
[2017-11-09] MEDS: Diltiazem HCl SR 60 mg Capsule PO SCH (17:04)
[2017-11-09] MEDS ORDERED: Sodium Chloride 0.9% 10 ML ONE (20:42)
--- NOTE | 2017-11-09 20:45 | PRG ---
DATE OF SERVICE: 11/09/2017 SUBJECTIVE: Ms. James is a pleasant 66-year-old female who presented with a syncopal episo de. She reports of doing well since being admitted to the hospital. She denies any headache, chest pain, palpitation, numbness, tingling or weakness. PHYSICAL EXAMINATION: VITAL SIGNS: Blood pressure of 108/59, pulse of 63, temperature of 98.4, respirations of 15, O2 sats 97% on room air. GENERAL: Well-developed, well-nourished female in no apparent distress. RESPIRATORY: Clear to auscultation bilaterally. CARDIOVASCULAR: Regular rate and rhythm. NEUROLOGICAL: Mental status: The patient is awake, alert, oriented x3. Speech and language: Fluen t speech. Cranial nerves: Pupils are 3 mm and reactive. Visual cox are intact. Extraocular mus cles are intact. No nystagmus. Face is symmetric. Motor exam showed normal tone and bulk with 5/5 strength in both lower extremities. IMAGING: EEG was reviewed, which was normal awake EEG. ASSESSMENT AND PLAN: Syncope, likely vasovagal in origin. Ms. James is a pleasant 66-year-old female who presented with the syncopal episode. I have reviewed her EEG, which was essentially normal. Her syncopal event may have been triggered by vasov agal response. She did mention of having noted tremor, which is likely essential tremor. I discusse d with her that this is likely essential tremors. Given that this tremors are not bothersome, I woul d not recommend starting her on any medication. There is no further neurological workup needed from my standpoint. Thank you for your consultation. We will sign off.
[2017-11-09] MEDS: Fluticasone Propionate Nasal Spray 16 gm Bottle NASAL SCH (20:46)
[2017-11-09] MEDS: Montelukast Sodium 10 mg Tablet PO SCH (20:47)
[2017-11-09] MEDS: ALPRAZolam 0.25 MG TAB PO PRN (20:47)
[2017-11-09] MEDS: Loratadine 10 MG TAB PO SCH (20:47)
[2017-11-10] MEDS: DULoxetine 60 MG CAP PO SCH (08:42)
[2017-11-10] MEDS: Polyethylene Glycol 3350 17 GM Packet PO SCH (08:43)
--- NOTE | 2017-11-10 09:29 | PRG ---
DATE OF SERVICE: 11/10/2017 SUBJECTIVE: The patient is doing well this morning. She slept well. No complaints of chest pains o r palpitations. OBJECTIVE: VITAL SIGNS: Temperature 98.4, pulse 64, respirations 16, pulse ox 97 on room air, blood pressure 11 3/57. HEART: Regular rate and rhythm without murmur. LUNGS: Clear. ABDOMEN: Soft. EXTREMITIES: No edema. LABORATORY: None. ASSESSMENT: 1. Syncopal episode, rule out vasovagal episode. Rule out arrhythmia. EP evaluation pending. 2. History of coronary artery disease. 3. Prinzmetal angina. 4. Hypertension. 5. History of anxiety. 6. Anemia. 7. History of atrial fibrillation, status post ablation x5. PLAN: EP study this morning.
--- NOTE | 2017-11-10 17:09 | PDOC.CTH ---
Cardiology Progress Note - Subjective pt. without events overnight. Seen by EP today.Seen and eval. by me. - Objective Vital Signs Temp Pulse Resp BP BP Pulse Ox 11/10/17 14:58 98.3 F 62 18 123/65 100 11/10/17 11:41 97.9 F 57 L 16 115/62 98 11/10/17 08:00 98.4 F 64 16 11/10/17 07:41 98.4 F 64 16 113/57 L 97 Admit Weight 163 lb 12.8 oz Weight 167 lb 3.2 oz 11/09/17 11/10/17 11/11/17 06:59 06:59 06:59 Intake Total 490 Output Total 1950 1200 Balance -1950 -710 - Physical Examination General/Neuro: alert & oriented x3 Neck: carotid US brisk Lungs: CTA Heart: RRR Abdomen: NT/ND - Labs Result Diagrams: 11/09/17 04:32 11/09/17 04:32 Troponin/CKMB CK-MB (CK-2) 0.9 ng/mL (0-6.6) 11/07/17 13:37 Troponin I Less than 0.010 ng/mL (< 0.028) 11/07/17 22:19 - Assessment/Plan 1.Syncope : plan for loop recorder tomorrow.Procedure discussed. 2.CAD: stable . Prinzmetal angina. Review of Systems - Review of Systems Respiratory: reports: no symptoms reported Cardiac (ROS): reports: no symptoms reported ABD/GI: reports: no symptoms reported : reports: no symptoms reported Musculoskeletal: reports: no symptoms reported Neurological: reports: no symptoms reported
[2017-11-10] MEDS: Diltiazem HCl SR 60 mg Capsule PO SCH (17:54)
[2017-11-10] MEDS: Loratadine 10 MG TAB PO SCH (21:23)
[2017-11-10] MEDS: Fluticasone Propionate Nasal Spray 16 gm Bottle NASAL SCH (21:23)
[2017-11-10] MEDS: Montelukast Sodium 10 mg Tablet PO SCH (21:23)
[2017-11-10] MEDS: ALPRAZolam 0.25 MG TAB PO PRN (21:24)
[2017-11-10] MEDS: Acetaminophen 500 MG TAB PO PRN (21:28)
[2017-11-11] MEDS ORDERED: Lidocaine 1% w/Epinephrine 1:100K 30 ML VIAL ONE (07:26)
--- NOTE | 2017-11-11 08:30 | PRG ---
DATE OF SERVICE: 11/11/2017 SUBJECTIVE: The patient remains chest pain free. Awaiting further treatments. OBJECTIVE: VITAL SIGNS: Temperature 98.7, pulse 82, respirations 14, O2 sat 98, blood pressure 115/57. HEART: Regular rate and rhythm. LUNGS: Clear. ABDOMEN: Soft and nontender. ASSESSMENT: 1. Syncopal episodes, rule out vasovagal episode. Rule out arrhythmia. 2. History of coronary disease. 3. Prinzmetal angina. 4. Hypertension. 5. History of an anxiety disorder. 6. Anemia. 7. History of atrial fibrillation, status ablation x5. PLAN: Event monitor to be placed today and possible discharge.
[2017-11-11] MEDS ORDERED: ALPRAZolam 0.5 MG TAB PO PRN (08:47)
[2017-11-11] MEDS ORDERED: guaiFENesin ER 600 MG TAB PO PRN (08:47)
[2017-11-11] MEDS ORDERED: traMADol HCl 50 MG TAB PO PRN ×2 (08:47)
[2017-11-11] MEDS ORDERED: Ondansetron ODT 4 MG TAB PO PRN (08:47)
[2017-11-11] MEDS ORDERED: Benzonatate 100 MG CAP PO PRN (08:47)
[2017-11-11] MEDS ORDERED: Zolpidem Tartrate 5 MG TAB PO PRN (08:47)
[2017-11-11] MEDS: DULoxetine 60 MG CAP PO SCH (08:52)
[2017-11-11] MEDS: Polyethylene Glycol 3350 17 GM Packet PO SCH (08:53)
--- NOTE | 2017-11-11 09:02 | PDOC.CTH ---
Cardiology Progress Note - Subjective No new overnight events. No complaints this AM. - Objective Vital Signs Temp Pulse Resp BP Pulse Ox 11/11/17 08:11 98.7 F 62 14 11/11/17 04:00 98.7 F 62 14 115/57 L 98 11/11/17 00:00 60 113/69 Admit Weight 163 lb 12.8 oz Weight 167 lb 3.2 oz 11/10/17 11/11/17 11/12/17 06:59 06:59 06:59 Intake Total 490 650 Output Total 1200 1100 Balance -710 -450 - Physical Examination General/Neuro: alert & oriented x3 Lungs: CTA Heart: RRR Abdomen: NT/ND - Labs Result Diagrams: 11/09/17 04:32 11/09/17 04:32 Troponin/CKMB CK-MB (CK-2) 0.9 ng/mL (0-6.6) 11/07/17 13:37 Troponin I Less than 0.010 ng/mL (< 0.028) 11/07/17 22:19 - Assessment/Plan 1. Syncope: Linq implantable loop recorder today. 2. CAD: stable. Okay to d/c pt. to home today. I will see her back in 7-10 days.
[2017-11-11 09:03] VITALS: BP 136/64; TEMP 97.9
[2017-11-11] MEDS ORDERED: Acetaminophen/Codeine 30-300mg Tablet PO PRN (09:03)
--- NOTE | 2017-11-11 10:17 | CON ---
This is electrophysiology consultation dictated for Dr. Scott Gandhi. DATE OF CONSULTATION: 11/10/2017 REFERRING PHYSICIAN: Misty Rodriguez. REASON FOR CONSULTATION: Syncopal episode. HISTORY OF PRESENT ILLNESS: This is a very pleasant 66-year-old female patient that presented to the emergency room on 11/07/2017 after having a syncopal episode at home. She reports normal morning an d she was making breakfast around 10:00 a.m. She was experiencing minor stress and began to develop some weakness and clamminess, so she sat down in her chair, but immediately passed out. Her and son were nearby, they transition her to the floor and began doing chest compressions, but stopped since he noticed patient gasp and began to breathe on her own. She had passed out for 1-2 minutes, at which point she did not have a pulse and was not breathing compressions; however, w hen she restored consciousness, she reports that she continued to have a twilight feeling with some c onfusion and difficulty finding words and moving abnormally for 5-6 hours. She denies having any ass ociated incontinence of bowel or bladder, or any seizure-like tremor. She has never had an episode l caty this in the past. She reports that she continues to have episodes of chest pain attributed to he r prinzmetal angina and has always been very symptomatic of any ectopy that she experiences given her longstanding history of atrial arrhythmias. When evaluated in the emergency room, she underwent cardiac workup, although which has been negative so far. There was a CT done of the chest to rule out aortic dissection, which was also found to be n ormal. Her chest x-ray is normal and she was admitted for further evaluation and treatment. Also, w sarwat in the emergency room and found her heart rate was mildly slow bradycardic in the high 50s. PAST MEDICAL HISTORY: 1. Prinzmetal angina. 2. Prior ST elevation MIs in the absence of coronary artery disease. 3. Reactive airway disease. 4. Longstanding history of atrial fibrillation and atypical flutter, first diagnosed in 1992 with 5 prior ablations. 5. Duodenal ulcer in 1998. 6. Pernicious anemia. 7. Iron deficiency anemia. 8. Arthritis in the right knee. 9. 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 ALLERGIES: Include MORPHINE, ETOMIDATE, IODINE, SHELLFISH, SEAFOOD TRANSADHESIVE TAPE with adverse r eactions noted, TRAZODONE, and CAFFEINE. CURRENT MEDICATIONS: Aspirin 81 mg daily, Cymbalta 60 mg p.o. q.a.m., isosorbide mononitrate 120 mg q.a.m., MiraLax 17 grams daily, Ranexa 1000 mg b.i.d., B12 at 1000 mcg monthly, Flonase 2 sprays per nostril q.p.m., diltiazem 120 mg ER daily, Zyrtec 10 mg daily, Singulair 10 mg daily, Protonix 40 mg b.i.d., Tylenol as needed, nitro sublingual as needed, Ultram 50 mg as needed, Xanax 0.5 mg as needed , Zofran 4 mg as needed, Colace 100 mg p.o. b.i.d. as needed, and Ambien 1 mg at bedtime as needed. PAST SURGICAL HISTORY: Appendectomy in 1968. section in 1982. Abdominal hysterectomy in , right shoulder impingement and rotator cuff repair in 1997. Cardiac catheterization and ablatio n in 2006, 2007, 2008, and 2009. Heart catheterization in 2006, 2012, and 2013, minimal coronary art fanta disease and no PCI. Gallbladder removed in 2009. Pneumonia 2009. Interstitial pneumonia in 201 2. STEMI in 01/2013, 06/2013, and 06/2014. Colonoscopy in 2010. Episode of aphasia in 2014. FAMILY HISTORY: Father has a history of hypertension, coronary artery disease, bypass at age 65, aor tic stenosis, and at age 80 from congestive heart failure. Her mother at age 62 from AL S. Her paternal grandmother had a possible cerebral aneurysm. Paternal grandfather at 80 fr om emphysema and heart failure. Maternal grandmother at age 85 from type 2 diabetes complicatio ns also had Alzheimer's, heart disease, and hypertension, then maternal grandfather in the 60 s from a probable GA. REVIEW OF SYSTEMS: Currently, Ms. James is without complaint and is feeling very well. A 12-point r eview of systems was conducted and is negative except that listed in the HPI. She denies any heart r acing, palpitations, chest pain or pressure currently. She has not had any stroke or stroke-like sym ptoms. She has not had any recurrent syncopal episodes or dizziness since admission to the hospital. PHYSICAL EXAMINTION: VITAL SIGNS: Temperature 98.3 degrees Fahrenheit, pulse is 62, respirations 18, oxygen saturation 10 0% on room air, and blood pressure 123/65. GENERAL: This is a well-appearing, female in no acute distress. HEENT: Head is normocephalic, atraumatic. Her sclerae are anicteric. EOMs are intact. NECK: Supple without jugular venous distention. Her thyroid is nonpalpable. Her carotids are witho ut bruits with brisk uptake bilaterally. LUNGS: Clear to auscultation bilaterally without wheezes, crackles or rhonchi. Respirations are kana n and unlabored with good bilateral excursion. HEART: Rate is without significant murmur, rub or gallop. PMI is nondisplaced. EXTREMITIES: Warm and dry to touch without clubbing, cyanosis or edema. ABDOMEN: Soft and nontender without palpable masses. Hepatojugular reflex is negative. NEUROLOGIC: Cranial nerves II-XII grossly intact with good bilateral strength and coordination exam is nonfocal. LABORATORY DATA: From 11/09/2017 - WBC 9.3, hemoglobin 10.3, hematocrit 30.6, platelet count is 264. Chemistry on 11/09/2017 - Sodium 132, potassium 3.6, chloride 99, CO2 is 24, BUN is 10, creatinine 0.71. Serial troponins are negative. Cortisol is less than 1. TSH is 1.04. Review of telemetry an d EKG, the patient has low amplitude P waves and is currently maintaining what is likely a sinus rhyt hm. The patient does have an abnormality in her T-wave, which could be ahead in P waves in the later al aspect of the T-wave. This could represent a slow 2:1 atrial flutter or possibly slow 2:1 atrial tachycardia. DATABASE: A 12 lead EKG was obtained and confirms this possibility, although with EKG alone is diffi cult to confirm that this truly is flutter or atrial tachycardia. QRS is narrow at 98 milliseconds, QTC is 472 milliseconds. Her heart rate is ranging between 55 and 65 beats per minute general. IMPRESSION: 1. Syncopal episode, possibly cardiogenic versus a vasovagal reaction. The patient has had some bra dycardia with rates in the high 50s to mid 60 range. 2. History of atrial arrhythmias, possibly currently in a low atrial tachycardia versus a 2:1 flutte r. RECOMMENDATIONS: At this time, recommendation before loop recorder implant for continued monitoring as an outpatient. Should the patient have any recurrent episodes or documented arrhythmia then proce eded with pacemaker.
--- NOTE | 2017-11-11 10:52 | EEG ---
Referring Physician: DR. Devi LAZO EEG # [id number] TEST TYPE: ROUTINE PORTABLE INPATIENT REASON FOR EEG: SYNCOPE EEG DESCRIPTION: This is a 21 channel digital EEG recording. Electrodes are placed using the international ten-twenty electrode placement system. The background rhythm is predominately 9-10 hertz, medium voltage alpha rhythm. HYPERVENTILATION: Showed not effect. PHOTIC STIMULATION: Showed no effect. There are periods of drowsiness with 6-7 hertz, low to medium voltage theta rhythm. There are no epileptiform discharges, sharp transients or asymmetry noted. EKG LEAD: Shows 60 beats per minute, regular rhythm. IMPRESSION: THIS IS A NORMAL AWAKE AND DROWSY EEG. Lavatory Attendant: EDY Inbound Sales Manager: EEG.MSL [email or web address]
--- NOTE | 2017-11-11 20:21 | EKG ---
Test Reason : Blood Pressure : / mmHG Vent. Rate : 060 BPM Atrial Rate : 060 BPM P-R Int : 152 ms QRS Dur : 098 ms QT Int : 472 ms P-R-T Axes : 078 063 -06 degrees QTc Int : 472 ms Normal sinus rhythm Nonspecific ST abnormality Abnormal QRS-T angle, consider primary T wave abnormality Abnormal ECG When compared with ECG of 07-NOV-2017 13:19, (Unconfirmed) T wave inversion less evident in Anterior leads Confirmed by CONCETTA HEATON, SBrittaney ([id number]) on 11/11/2017 8:20:36 PM Referred By: LYN Confirmed By:DR. Kari HYLTON MD
--- NOTE | 2017-11-12 00:01 | CCL ---
DATE OF PROCEDURE: 11/11/2017 INDICATION FOR PROCEDURE: A 66-year-old female with syncopal episodes and episodes of bradycardia. She was advised to undergo an implantable loop recorder for evaluation of possible arrhythmias throughout this is in etiology of a single episode. She was taken to the recovery area where she underwent local lidocaine anesthesia without any diffic ulties. The implantable loop recorder was injected up underneath the skin. It was interrogated and w as found to have good sensing. She was implanted with a [employer] Linq implantable loop recorder. Th ere were no difficulties or complications encountered.
[2017-11-12] MEDS ORDERED: Cyanocobalamin 1000 MCG/ML VIAL SC SCH (09:00)
--- NOTE | 2017-11-12 09:08 | PRG ---
ELECTROPHYSIOLOGY FOLLOWUP NOTE DATE OF SERVICE: 11/11/2017 REFERRING PHYSICIAN: Dr. Rodriguez. SUBJECTIVE: Ms. James seems to be doing well after her loop recorder implant. No further dizzy or s yncopal symptoms are noted. OBJECTIVE DATA: VITAL SIGNS: Blood pressure is 115/57, heart rate 60, respirations 14, temperature 98.7 degrees Fahr enheit. GENERAL: This is an alert and oriented woman, in no apparent distress. NECK: Supple. Jugular veins not distended. CHEST: Coarse, no crackles. CARDIOVASCULAR: Heart sounds are regular to rate and rhythm. Precordial loop recorder site is [employer]. ABDOMEN: Benign. Bowel sounds positive. EXTREMITIES: Lower extremities without edema, clubbing, or cyanosis. DATABASE: Telemetry strips revealed significant change in the rhythm. LABORATORY DATA: White count is 9.3, hemoglobin 10.3, platelet count is 264. Electrolytes normal. ASSESSMENT AND PLAN: Ms. James is a pleasant 66-year-old woman with history of atrial arrhythmias af ter multiple ablation procedures. She has presented with a syncopal spell, although quickly recovere d. For now, no obvious reason for her syncopal spell that has occurred. She was in mild bradycardia on presentation. She underwent a loop recorder placement. For now, we continue monitoring. As to her history of vasospastic angina, she will continue diltiazem as per Dr. Rodriguez's recommendations. If further bradycardia occurs associated with recurrent symptoms, pacing could be a reasonable consider ation. We will see her back in the office.
--- NOTE | 2017-11-12 15:06 | DIS ---
DISCHARGE DIAGNOSES: 1. Syncopal episode/vasovagal episode. 2. History of arrhythmias. 3. History of coronary artery disease. 4. Prinzmetal angina. 5. Hypertension. 6. Anxiety disorder. 7. Anemia. 8. History of atrial fibrillation, status post ablation x5. DISCHARGE MEDICATIONS: Pulmicort 2 puffs b.i.d., Ranexa 1000 b.i.d., Singulair 10 mg daily, diltiaze m 120 ER mg daily, Zyrtec 10 at bedtime, Cymbalta 60 daily, Flonase 2 sprays each nostril daily, Leslie Lax 17 mg daily, Protonix 40 daily, isosorbide 120 ER mg daily, aspirin 81 mg daily, Tessalon Perles p.r.n., guaifenesin 600 b.i.d. p.r.n., Ambien 5 at bedtime p.r.n., Xopenex 2 puffs q.6h. p.r.n., Xana x 0.5 at bedtime p.r.n., tramadol p.r.n., vitamin B12 1000 mcg subcu q. month. BRIEF HISTORY: This is a 66-year-old white female with the above medical problems who presents to [facility] Emergency Room following a syncopal episode. She woke up with chest pain which is not unusual for her. She fell back asleep and woke up later. At approximately 10:00 a.m., she was having breakfast and her dog scratched her arm and immediately she became very faint and passed out. Her stat ed that she had a seizure-like activity. She was then brought to the emergency room for further eval uation. It was reported that her symptoms took 5-6 hours to resolve from her mental confusion. HOSPITAL COURSE: The patient was hydrated. Brain MRI was found to be unremarkable. Carotid Doppler s were negative. Dr. Rodriguez was consulted as well as Dr. Gandhi. No significant cardiac arrhythmias [facility] noted. Dr. Gandhi recommended further observation with consideration of a pacemaker placement. The patient is also under extreme stress over a wedding of her son. Her new [id number] and herself are at odds. She does have a wedding shower this weekend in [place], which she is excited that s he does not have to go due to this illness. We will continue to follow. White count 9.3, H&H 10 and 30. Electrolytes normal. Creatinine 0.71.
== END 2017-11-11 13:42 | disposition home or self-care (01) | DRG 262 ==
LOC: ERS 13:15 → 2SW 17:35 → OBSVTOIN 17:35 → 2SW 11-08 20:26
PROVIDERS: ADMIT Family Medicine; ATTEND Family Medicine
PROC: 4A00X4Z Measurement of Central Nervous Electrical Activity, External Approach (ICD-10-PCS; 2017-11-09)
PROC: 0JH632Z Insertion of Monitoring Device into Chest Subcutaneous Tissue and Fascia, Percutaneous Approach (ICD-10-PCS; principal; 2017-11-11)
DX: R55 Syncope and collapse (principal); I48.2 Chronic atrial fibrillation; D50.9 Iron deficiency anemia, unspecified; G25.0 Essential tremor; E05.80 Other thyrotoxicosis without thyrotoxic crisis or storm; F41.9 Anxiety disorder, unspecified; I10 Essential (primary) hypertension; J45.909 Unspecified asthma, uncomplicated; I25.2 Old myocardial infarction; Z88.5 Allergy status to narcotic agent; Z88.8 Allergy status to other drugs, medicaments and biological substances; Z91.041 Radiographic dye allergy status; R00.1 Bradycardia, unspecified; T46.2X5A Adverse effect of other antidysrhythmic drugs, initial encounter; I25.111 Atherosclerotic heart disease of native coronary artery with angina pectoris with documented spasm
CPT/HCPCS: 33282; 36415; 70553; 71045; 71275; 80048; 80053; 81003; 82533; 82553; 84443; 84484; 85025; 93005; 93010; 93306; 93880; 95816; 95819; 96374; 96375; A4216; C1764; J1200; J2001; J2405; J2930; J3010; S0028

== ENCOUNTER 2018-07-04 13:06 | Observation (INO) | payer BC, MEDICARE ==
[2018-07-04 13:35] LABS: #Basophils 0.1 thou/uL (0.0-0.2); #Eosinphils 0.1 thou/uL (0.0-0.7); #Lymphocytes 1.7 thou/uL (1.20-3.40); #Monocytes 0.5 thou/uL (0.11-0.59); #Neutrophils 2.2 thou/uL (1.40-6.50); %Basophils 2.3 % (0.0-1.0); %Eosinophils 1.2 % (0.0-10.0); %Lymphocytes 37.4 % (21.0-51.0); %Monocytes 10.1 % (0.0-10.0); %Neutrophils 49.1 % (42.0-75.0); Hemoglobin 12.2 g/dL (12.0-16.0); Mean Corpuscular HGB CONC 34.3 g/dL (32.0-36.0); Mean Corpuscular Hemoglobin 32.8 pg (27.0-31.0); Mean Corpuscular Volume 95.7 fL (78.0-98.0); Mean Platelet Volume 7.8 fL (7.4-10.4); Platelet Count 246 thou/uL (130-400); RBC Distribution Width 11.9 % (11.5-14.5); Red Blood Cell (RBC) Count 3.71 mill/uL (4.20-5.40); White Blood Cell (WBC) Count 4.5 thou/uL (4.8-10.8)
[2018-07-04 13:59] LABS: Troponin I Less than 0.010 ng/mL (< 0.028)
--- NOTE | 2018-07-04 14:45 | RAD ---
CHEST 1 VIEW: Date: 07/04/18 HISTORY: Chest pain. COMPARISON: Radiograph dated 11/07/17. FINDINGS: Loop recording device projects over the left hemithorax. No focal confluent air space consolidation, pneumothorax, or effusion. No acute osseous abnormality. IMPRESSION: No acute intrathoracic abnormality. POS: MOISES
[2018-07-04 15:35] LABS: Albumin 3.7 g/dL (3.4-4.8)
[2018-07-04 15:37] LABS: Calcium 9.2 mg/dL (7.8-10.44); Chloride 102 mmol/L (98-107); Sodium 133 mmol/L (136-145)
[2018-07-04 15:38] LABS: Globulin 2.6 g/dL (2.4-3.5); Glucose 83 mg/dL (80-115); Protein, Total 6.3 g/dL (6.0-8.3)
[2018-07-04 15:39] LABS: Anion Gap 12 mmol/L (10-20); Carbon Dioxide 23 mmol/L (23-31)
[2018-07-04 15:40] LABS: Bilirubin, Total 0.6 mg/dL (0.2-1.2)
[2018-07-04 15:41] LABS: Alkaline Phosphatase 77 U/L (40-150); Calc. Creatinine Clearance 0 mL/min (70-130); Estimated GFR-MDRD 78
[2018-07-04 15:42] LABS: BUN (Urea Nitrogen) 8 mg/dL (9.8-20.1)
[2018-07-04 15:43] LABS: AST (SGOT) 14 U/L (5-34)
[2018-07-04 15:44] LABS: ALT (SGPT) 10 U/L (8-55); CK (CPK) 35 U/L (29-168)
[2018-07-04] MEDS ORDERED: Acetaminophen 500 MG TAB ONE (15:58)
[2018-07-04] MEDS ORDERED: Aspirin 325 MG TAB PO SCH (16:45)
[2018-07-04 17:01] LABS: Troponin I Less than 0.010 ng/mL (< 0.028)
[2018-07-04 17:11] VITALS: BMI 28.6
[2018-07-04] MEDS ORDERED: Mometasone Furoate 30 PUFF 220 MCG INH PRN (18:51)
[2018-07-04] MEDS ORDERED: Docusate 100 MG CAP PO PRN (18:51)
[2018-07-04] MEDS ORDERED: Zolpidem Tartrate 5 MG TAB PO PRN (18:51)
[2018-07-04] MEDS ORDERED: traMADol HCl 50 MG TAB PO PRN (18:51)
[2018-07-04] MEDS ORDERED: Non-Formulary Item 1 EACH (Levalbuterol Tartrate [Xopenex Hfa Inhaler] 2 PUFF) INH PRN (18:51)
[2018-07-04] MEDS ORDERED: Ondansetron ODT 4 MG TAB PO PRN (18:51)
[2018-07-04] MEDS ORDERED: ALPRAZolam 0.5 MG TAB PO PRN (18:51)
[2018-07-04] MEDS ORDERED: ALPRAZolam 0.25 MG TAB PO PRN (18:51)
[2018-07-04] MEDS ORDERED: Acetaminophen 500 MG TAB PO PRN (18:51)
[2018-07-04] MEDS ORDERED: guaiFENesin ER 600 MG TAB PO PRN (18:51)
[2018-07-04] MEDS ORDERED: Nitroglycerin 0.4 MG TAB (25 Tab Bottle) SL PRN (18:51)
[2018-07-04] MEDS ORDERED: PROVENTIL INHALER 6.7 G (200 INHALATIONS) INH PRN (19:11)
[2018-07-04 20:56] LABS: Troponin I Less than 0.010 ng/mL (< 0.028)
[2018-07-04] MEDS ORDERED: Loratadine 10 MG TAB PO SCH (21:00)
[2018-07-04] MEDS ORDERED: Fluticasone Propionate Nasal Spray 16 gm Bottle NASAL SCH (21:00)
[2018-07-04] MEDS ORDERED: Montelukast Sodium 10 mg Tablet PO SCH (21:00)
--- NOTE | 2018-07-04 21:52 | HP ---
HISTORY OF PRESENT ILLNESS: Ms. James is a 67-year-old female patient of Dr. Praveen North who came into the emergency room after experiencing a recurrence of her chest pain for about 18 hours . She has a history of Printzmetal's angina and sees Dr. Rodriguez regularly. Her routine treatment for incident of Printzmetal's is to try nitroglycerin and if that did not help and then try some Xanax. She tried both and did not have improvement. So this morning, she was continuing to have pain throug hout the morning, so came into the emergency room. She has had 3 myocardial infarctions in the past. The last one was in 2013 where she had slightly different symptoms to that pain which included diap horesis. She decides with this pain, it is just a gripping vice-like pain that is in a specific line that goes from anterior lower chest close to the xiphoid straight through to the area of her back ju st medial and inferior to the scapula. She has also had a history of atrial fibrillation, atrial flu tter and has had some ablations since she says it does not necessarily feel anything like that. She says there has been no radiation to this pain. She has had some mild nausea, but no diaphoresis, no cough, no shortness of breath. No chest heaviness. PAST MEDICAL HISTORY: Positive for Printzmetal's angina, three STEMI, she has had a cardiac rhythm, atrial fibrillation/atrial flutter since 1982. She has had a duodenal ulcer in 1998. She has a hist ory of pernicious anemia as well as iron deficiency anemia, hyperthyroidism, and osteoarthritis. PAST SURGICAL HISTORY: She has had multiple catheterizations of finding no obvious stentable areas. She has had a cholecystectomy. She had a cardiac ablation in 02/28/2009 and 2009. She had a histor y of an appendectomy and a and a surgical hysterectomy and then after that she has had a la paroscopic adhesiolysis. She also had a right shoulder surgery in the past. FAMILY HISTORY: Noncontributory. 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 She has no smoking history. No alcohol use. She is very strict on her diet. She h as done well to try to take better care of herself with all of this cardiac history. She has lost ac tually 70 pounds in the last couple years from aggressive dietary restrictions. ALLERGIES: Including ETOMIDATE which she had an anaphylactic reaction to, also MORPHINE, IODINE, ADH ESIVES, SHELLFISH and TRAZODONE. MEDICATIONS: She is on 81 mg aspirin once a day. She is on Ismo 120 mg in the morning. She is on C ymbalta 60 mg once a day. She is on diltiazem 120 mg in the evening. She is on Ranexa 1000 mg twice a day. She is on Singulair 10 mg once a day and Zyrtec 10 mg once a day. She takes B12 1000 mcg in jection once a month. She has dicyclomine 10 mg capsule p.r.n. for abdominal cramps. She has Xanax 0.25 p.r.n. for anxiety or Printzmetal's and she has Flonase p.r.n. and MiraLax. She uses p.r.n. for constipation issues. REVIEW OF SYSTEMS: As stated in the HPI. She denies any fevers or chills. No seizures, no headache , no changes in vision. No trouble chewing or swallowing. No trauma. She denies any chest heavines s, no troubles breathing or coughing. Mild nausea, but no emesis. Denies any changes in bowel or bl adder habits. No melena or hematochezia, no hematuria or dysuria. Denies any paresis or paresthesia s. Denies any suicidal or homicidal ideations, any auditory or visual hallucinations. OBJECTIVE: VITAL SIGNS: In the ER, BP was 130s-140s over 70s, respirations 15-18, afebrile, satting 100% on alexsander m air. GENERAL APPEARANCE: In hospital bed, she is sitting comfortably. No complaints of pain at this time . HEENT: Essentially unremarkable. Pupils are equal, round, and reactive to light and accommodation. Extraocular movements are intact. Mucosal membranes moist. NECK: Supple, no JVD, no bruits, no thyromegaly. HEART: S1, S2, with no rubs, murmurs, or gallops. Regular rhythm. LUNGS: Clear to auscultation bilaterally. ABDOMEN: Soft, flat, nontender, nondistended, no palpable masses, no hepatosplenomegaly. GENITOURINARY: Deferred. EXTREMITIES: Show good palpable pulses in all four extremities. Good skin turgor. NEUROLOGIC: She is grossly intact, alert and oriented x4. Cranial nerves II-XII are equal and symme trical. LABORATORY DATA AND IMAGING DATA: Her EKG showed a mild bradycardia with some PVCs with a rate of 54 , some flattened T waves in the lateral precordial leads. CBC: White count 4.5, hemoglobin and melida tocrit 12 and 35 respectively, platelets 246,000. Her sodium 133, potassium 4.0, chloride 102, bicar bonate 23, BUN 8, creatinine 0.75, GFR 78, glucose 83. AST and ALT are 14 and 10 respectively. Her C. creatinine kinase is 35. CK-MB is 1.0. Troponin is undetectable. Beta natriuretic peptide is 33 . ASSESSMENT: Prinzmetal's angina with a known history of previous MIs. PLAN: To keep overnight for observation as long as everything rules out. Dr. North will see her in the morning for disposition at that point. We will continue with her regular home meds.
--- NOTE | 2018-07-05 07:52 | DIS ---
DATE OF ADMISSION: 07/04/2018 DATE OF DISCHARGE: 07/05/2018 DISCHARGE DIAGNOSES: 1. Prinzmetal angina. 2. Chest pain. 3. History of atrial fibrillation and flutter. 4. History of normal cardiac catheterization. 5. Pernicious anemia. 6. Iron deficiency anemia. 7. Hypothyroidism. 8. Osteoarthritis. DISCHARGE MEDICATIONS: Aspirin 81 mg daily, isosorbide 120 q.a.m., Cymbalta 60 mg daily, diltiazem 1 20 bedtime, Ranexa 1000 b.i.d., Singulair 10 mg daily, Zyrtec 10 at bedtime, vitamin B12 1000 injecti on once a month, dicyclomine 10 p.r.n., Xanax 0.25 p.r.n., Flonase p.r.n., MiraLax p.r.n. BRIEF HISTORY: This is a 67-year-old white female with history of Prinzmetal angina with multiple no rmal cardiac catheterizations. She presented with chest pain lasted approximately 18 hours, radiatin g to her back. This was similar to her prior history of myocardial infarctions. She then decided to come to the emergency room. The patient said the pain was gripping vice-like pain in her anterior c hest radiating to her back into her scapula. She had mild nausea, but no diaphoresis, no cough, no s hortness of breath, no chest heaviness. HOSPITAL COURSE: Cardiac enzymes x3 were negative. BNP was negative. Chest x-ray negative. Her ch est pain resolved and she has been chest pain free overnight. Her recent Cardiolite test had been al l negative. The patient is feeling much better with requesting to go home. We will send her home to follow up in the office in 1 week. She will also follow up with Dr. Rodriguez. Labs are unremarkable. CBC showed sodium 133, creatinine 0.71, BUN 8. Troponin one less than 0.010 x3. BNP 33. White coun t 4.5, H&H is 12 and 35, platelet of 246. Chest x-ray negative.
[2018-07-05 08:14] VITALS: BP 123/68; TEMP 97.4
[2018-07-05] MEDS ORDERED: DULoxetine 60 MG CAP PO SCH (09:00)
[2018-07-05] MEDS ORDERED: Polyethylene Glycol 3350 17 GM Packet PO SCH (09:00)
== END 2018-07-05 08:19 | disposition home or self-care (01) ==
LOC: ERS 13:06 → 2SW 17:08
PROVIDERS: ADMIT Family Medicine; ATTEND Family Medicine
DX: I20.1 Angina pectoris with documented spasm (principal); I48.91 Unspecified atrial fibrillation; I48.92 Unspecified atrial flutter; D50.9 Iron deficiency anemia, unspecified; I25.2 Old myocardial infarction; E03.9 Hypothyroidism, unspecified; M19.90 Unspecified osteoarthritis, unspecified site; Z79.82 Long term (current) use of aspirin; Z79.899 Other long term (current) drug therapy; Z88.5 Allergy status to narcotic agent; Z88.8 Allergy status to other drugs, medicaments and biological substances; Z91.013 Allergy to seafood; Z91.048 Other nonmedicinal substance allergy status; Z98.890 Other specified postprocedural states
CPT/HCPCS: 36415; 71045; 80053; 82550; 82553; 83880; 84484; 85025; 93005; G0378

== ENCOUNTER 2018-09-24 07:48 | Outpatient (CLI) | payer BC, MEDICARE | END 2018-09-24 07:49 | disposition home or self-care (01) | LOC: BICMAMMO 07:48 | PROVIDERS: ATTEND Obstetrics & Gynecology | DX: Z12.31 Encounter for screening mammogram for malignant neoplasm of breast (principal); R92.1 Mammographic calcification found on diagnostic imaging of breast | CPT/HCPCS: 77063; 77067 ==

== ENCOUNTER 2019-02-02 18:01 | Emergency (ER) | payer BC, MEDICARE ==
--- NOTE | 2019-02-02 18:27 | RAD ---
EXAM: Single view of the chest HISTORY: Chest pain COMPARISON: 07/04/2018 FINDINGS: Single view of the chest shows a normal sized cardiomediastinal silhouette. A cardiac harley toring device projects over the left chest wall. There is no evidence of consolidation, mass, or pleural effusion. The bones are unremarkable. IMPRESSION: No evidence of acute cardiopulmonary disease
[2019-02-02 18:31] LABS: #Basophils 0.1 thou/uL (0.0-0.2); #Lymphocytes 2.2 thou/uL (1.20-3.40); #Monocytes 0.5 thou/uL (0.11-0.59); #Neutrophils 1.9 thou/uL (1.40-6.50); %Basophils 1.3 % (0.0-1.0); %Lymphocytes 47.1 % (21.0-51.0); %Neutrophils 40.6 % (42.0-75.0); Hemoglobin 11.3 g/dL (12.0-16.0); Mean Corpuscular HGB CONC 33.3 g/dL (32.0-36.0); Mean Corpuscular Hemoglobin 31.9 pg (27.0-31.0); Mean Corpuscular Volume 95.9 fL (78.0-98.0); Mean Platelet Volume 6.4 fL (7.4-10.4); Platelet Count 260 thou/uL (130-400); RBC Distribution Width 11.6 % (11.5-14.5); Red Blood Cell (RBC) Count 3.53 mill/uL (4.20-5.40); White Blood Cell (WBC) Count 4.6 thou/uL (4.8-10.8)
[2019-02-02 18:52] LABS: ALT (SGPT) 10 U/L (8-55); AST (SGOT) 16 U/L (5-34); Albumin 4.1 g/dL (3.4-4.8); Alkaline Phosphatase 85 U/L (40-150); Anion Gap 11 mmol/L (10-20); BUN (Urea Nitrogen) 10 mg/dL (9.8-20.1); Bilirubin, Total 0.5 mg/dL (0.2-1.2); Calc. Creatinine Clearance 0 mL/min (70-130); Calcium 9.3 mg/dL (7.8-10.44); Carbon Dioxide 26 mmol/L (23-31); Chloride 100 mmol/L (98-107); Estimated GFR-MDRD 76; Globulin 2.8 g/dL (2.4-3.5); Glucose 85 mg/dL (80-115); Potassium 4.3 mmol/L (3.5-5.1); Protein, Total 6.9 g/dL (6.0-8.3); Sodium 133 mmol/L (136-145)
[2019-02-02] MEDS ORDERED: HYDROcodone/Acetaminophen 5/325 mg Tablet ONE (19:01)
[2019-02-02] MEDS ORDERED: Aspirin Chewable 81 MG TAB ONE (19:01)
[2019-02-02] MEDS ORDERED: Ondansetron ODT 4 MG TAB ONE (19:10)
[2019-02-02] MEDS ORDERED: Ketorolac Tromethamine 30 MG/ML VIAL ONE (20:46)
--- NOTE | 2019-02-05 10:27 | EKG ---
Test Reason : Blood Pressure : / mmHG Vent. Rate : 059 BPM Atrial Rate : 059 BPM P-R Int : 182 ms QRS Dur : 092 ms QT Int : 470 ms P-R-T Axes : 022 063 -06 degrees QTc Int : 465 ms Sinus bradycardia Abnormal QRS-T angle, consider primary T wave abnormality Abnormal ECG Confirmed by KACEY REED ([id number]), multimedia editor CHAYITO VALENTINO ([id number]) on 02/05/2019 10:27:01 AM Referred By: Confirmed By:KACEY REED
== END 2019-02-02 22:26 | disposition home or self-care (01) ==
LOC: ERS 18:01
DX: R07.89 Other chest pain (principal); F41.9 Anxiety disorder, unspecified; E05.90 Thyrotoxicosis, unspecified without thyrotoxic crisis or storm; D50.9 Iron deficiency anemia, unspecified; Z79.899 Other long term (current) drug therapy; Z79.82 Long term (current) use of aspirin; Z79.51 Long term (current) use of inhaled steroids
CPT/HCPCS: 36415; 71045; 80053; 84484; 85025; 93005; 96374; J1885; Q0162

== ENCOUNTER 2019-07-27 10:41 | Observation (INO) | payer BC, MEDICARE ==
--- NOTE | 2019-07-27 13:30 | CT ---
CT head noncontrast HISTORY: Syncope. COMPARISON: 03/26/2015. FINDINGS: There is no evidence of acute intracranial hemorrhage or infarct. Subtle area of gliosis wi thin the left frontal white matter has progressed slightly since the prior exam and is likely related to chronic ischemic small vessel disease. There is no mass effect or shift of midline structu res. Visualized paranasal sinuses remain well-aerated. IMPRESSION: No acute intracranial abnormalities are demonstrated.
[2019-07-27 13:36] LABS: #Eosinphils 0.1 thou/uL (0.0-0.7); #Lymphocytes 1.6 thou/uL (1.20-3.40); #Monocytes 0.9 thou/uL (0.11-0.59); %Basophils 0.2 % (0.0-1.0); %Eosinophils 0.6 % (0.0-10.0); %Lymphocytes 18.3 % (21.0-51.0); %Monocytes 10.4 % (0.0-10.0); %Neutrophils 70.4 % (42.0-75.0); Mean Corpuscular HGB CONC 33.1 g/dL (32.0-36.0); Mean Corpuscular Volume 96.7 fL (78.0-98.0); Mean Platelet Volume 6.6 fL (7.4-10.4); Platelet Count 265 thou/uL (130-400); RBC Distribution Width 11.6 % (11.5-14.5); Red Blood Cell (RBC) Count 3.43 mill/uL (4.20-5.40); White Blood Cell (WBC) Count 8.5 thou/uL (4.8-10.8)
[2019-07-27 14:05] LABS: ALT (SGPT) 15 U/L (8-55); AST (SGOT) 16 U/L (5-34); Albumin 3.6 g/dL (3.4-4.8); Alkaline Phosphatase 79 U/L (40-110); Anion Gap 13 mmol/L (10-20); BUN (Urea Nitrogen) 11 mg/dL (9.8-20.1); Bilirubin, Total 0.6 mg/dL (0.2-1.2); Calc. Creatinine Clearance 0 mL/min (70-130); Calcium 8.6 mg/dL (7.8-10.44); Carbon Dioxide 22 mmol/L (23-31); Chloride 103 mmol/L (98-107); Estimated GFR-MDRD 81; Globulin 2.3 g/dL (2.4-3.5); Glucose 87 mg/dL (80-115); Potassium 4.3 mmol/L (3.5-5.1); Protein, Total 5.9 g/dL (6.0-8.3); Sodium 134 mmol/L (136-145)
[2019-07-27 15:11] LABS: Bilirubin Negative (Negative); Blood, Urine Negative (Negative); Clarity Clear (Clear); Glucose, Urine (Dipstick) Normal (Negative); Leukocyte Negative Leu/uL (Negative); Nitrite Negative (Negative); Protein, Urine (Dipstick) Negative (Neg-Trace); Urobilinogen Normal mg/dL (Less than 2)
[2019-07-27] MEDS ORDERED: Acetaminophen 325 MG TAB PO PRN (16:22)
[2019-07-27] MEDS ORDERED: Senokot S 8.6-50 MG TAB PO PRN (16:22)
[2019-07-27] MEDS ORDERED: Sodium Chloride 0.9% 1,000 ML IV SCH (16:30)
[2019-07-27 17:26] LABS: Troponin I Less than 0.010 ng/mL (< 0.028)
[2019-07-27 17:51] VITALS: BMI 28.8
[2019-07-27 21:03] LABS: Troponin I 0.016 ng/mL (< 0.028)
[2019-07-27] MEDS: Famotidine 20 MG TAB PO SCH (21:12)
[2019-07-27] MEDS ORDERED: traMADol HCl 50 MG TAB PO PRN (23:59)
[2019-07-27] MEDS ORDERED: Nitroglycerin 0.4 MG TAB (25 Tab Bottle) SL PRN (23:59)
[2019-07-27] MEDS ORDERED: Dicyclomine 10 MG CAP PO PRN (23:59)
[2019-07-27] MEDS ORDERED: ALPRAZolam 0.25 MG TAB PO PRN (23:59)
[2019-07-27] MEDS ORDERED: Zolpidem Tartrate 5 MG TAB PO PRN (23:59)
--- NOTE | 2019-07-28 01:48 | CON ---
DATE OF CONSULTATION: PRIMARY CARE DOCTOR: Praveen North MD. PRIMARY RECREATION THERAPY TEACHER: Misty Rodriguez MD. REASON FOR CARDIOLOGY CONSULT: Status post syncopal episode. HISTORY OF PRESENT ILLNESS: Ms. James is a very pleasant 68-year-old female with significant history of syncopal episode in October 2017 with LINQ placement in October 2017, history of aflutter and AFib with total 5 ablation, hyperlipidemia, asthma, arthritis, hypertension. The patient was doing the therapy well till last weekend. Last week, she had walking pneumonia but she was doing well yesterday. She was eating well and drinking enough fluid according to the patient, and she went back to work today, but around 9:30 the patient started dizziness and she felt oozy and nausea. At that time, the patient's blood pressure was 70/40 and the patient was passing out. The patient felt she was almost passing out and right after that next thing she noticed was she was on the floor, but that happened around 9:30 to 10 o'clock this morning and the patient had a slurred speech for 3 hours. In the ER, according to the patient, the patient's heart rate has been 40 to 50. At this moment prior to this event and during initial cardiac assessment, the patient denied chest pain, heaviness, tightness, dizziness, lightheadedness, or any cardiac complaints. The patient had echocardiogram done in October 2017 with EF 55% to 60%, dilated left atrium, mild mitral valve regurgitation, trace tricuspid regurgitation, and mild pulmonic regurgitation. The patient had a stress test that was done in September 2017 with no evidence of reversible ischemia. PAST MEDICAL HISTORY: 1. Prinzmetal angina/vasospastic coronary angina. 2. AFib and flutter with total 5 ablations. 3. Hypertension. 4. Asthma. 5. Hyperlipidemia. PAST SURGICAL HISTORY: Appendectomy, , hysterectomy, multiple heart catheterization, ablation, cardioversion, LINQ placement, cardiac catheterization in July 2014 with 90% stenosis in 1st diagonal with vasospasm. FAMILY HISTORY: There is a significant family history of coronary artery disease with maternal side. SOCIAL HISTORY: She is . She has 2 children, who live well. 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 She denies EtOH or illicit drug abuse. She is an ex-smoker, quit long time ago when she was a student. ALLERGIES: SHE IS ALLERGIC TO FISH, IODINE, MORPHINE, TRAZODONE. PLEASE SEE THE PATIENT ALLERGY LIST IN THE COMPUTER. MEDICATIONS: Please see the patient's medication in the patient's chart. REVIEW OF SYSTEMS: 12-point review of systems are negative unless otherwise mentioned in the HPI. PHYSICAL EXAMINATION: VITAL SIGNS: Blood pressure 136/60, temperature 97.6, pulse is 71, sinus rhythm, respiratory rate 18, O2 saturation 100% on room air. GENERAL: The patient is alert and oriented x4, not in acute distress. HEAD: Normocephalic, atraumatic. EYES: Extraocular muscle movements are intact. ENT AND MOUTH: Oral and nasal mucosa are moist without lesions. NECK: Supple. Normal range of motion. No JVD. RESPIRATORY: Clear to auscultate bilaterally. No wheezing, rales, or rhonchi noted. CARDIOVASCULAR: Regular rate and rhythm. Normal S1, S2. There is significant murmur in the left medial sternal border. 2+ pulses in bilateral upper and lower extremities. No edema in the lower extremities. ABDOMEN: Soft, nontender. No mass to palpitate. Bowel sounds are present. Carotid pulses are present without bruits or thrill. SKIN: Warm and dry. No lesion, rash, or erythema noted. MUSCULOSKELETAL: The patient able to move all extremities. The patient denied claudication. NEUROLOGIC: The patient is alert and oriented x4 and no acute distress. Nonfocal. PSYCHIATRIC: The patient's mood is appropriate. LABORATORY DATA: WBC 8.5, hemoglobin 11.0, hematocrit 33.2, platelet 265. Sodium of 134, potassium of 4.3, BUN 11, creatinine of 0.72, AST 16, and ALT 15. UA is negative. The patient's CT brain shows no acute intracranial abnormalities. ASSESSMENT AND PLAN: 1. Status post syncopal episode. The patient's LINQ interrogation shows the patient does not have any abnormal rhythm or pulses during that period or for long time. The patient told us that her blood pressure was 70/40 when the patient had dizziness. It means that the patient might have had a syncopal episode secondary to orthostatic hypotension. She is receiving 75 mL an hour fluid till tomorrow morning and we are going to encourage the patient to drink more fluid. 2. History of a vasospastic angina. The patient's condition is stable at this moment. We would like to continue to monitor hypertension. The patient's blood pressure is stable at this moment, we would like to continue to monitor. 3. Paroxysmal atrial fibrillation/atrial flutter. The patient's telemetry record has been showing the patient has sinus rhythm. Thank you very much for Cardiology Service to participate in care of this patient. We will follow along the patient's care team and make further recommendations as appropriate. Job ID: [id number]
[2019-07-28 04:51] LABS: #Eosinphils 0.1 thou/uL (0.0-0.7); #Lymphocytes 2.3 thou/uL (1.20-3.40); #Monocytes 0.7 thou/uL (0.11-0.59); #Neutrophils 2.7 thou/uL (1.40-6.50); %Basophils 0.3 % (0.0-1.0); %Eosinophils 1.2 % (0.0-10.0); %Lymphocytes 40.3 % (21.0-51.0); %Monocytes 12.5 % (0.0-10.0); %Neutrophils 45.7 % (42.0-75.0); Hemoglobin 10.7 g/dL (12.0-16.0); Mean Corpuscular HGB CONC 32.9 g/dL (32.0-36.0); Mean Corpuscular Hemoglobin 31.3 pg (27.0-31.0); Mean Corpuscular Volume 95.2 fL (78.0-98.0); Mean Platelet Volume 6.5 fL (7.4-10.4); Platelet Count 275 thou/uL (130-400); RBC Distribution Width 11.7 % (11.5-14.5); Red Blood Cell (RBC) Count 3.42 mill/uL (4.20-5.40); White Blood Cell (WBC) Count 5.8 thou/uL (4.8-10.8)
[2019-07-28 05:00] LABS: Anion Gap 11 mmol/L (10-20); BUN (Urea Nitrogen) 8 mg/dL (9.8-20.1); Calc. Creatinine Clearance 97 mL/min (70-130); Calcium 8.6 mg/dL (7.8-10.44); Carbon Dioxide 22 mmol/L (23-31); Chloride 106 mmol/L (98-107); Estimated GFR-MDRD 82; Glucose 85 mg/dL (80-115); Sodium 135 mmol/L (136-145)
--- NOTE | 2019-07-28 07:27 | HP ---
PRIMARY CARE PHYSICIAN: Praveen North MD CHIEF COMPLAINT: Syncope. HISTORY OF PRESENT ILLNESS: Ms. James is a very pleasant 68-year-old female who reported to the emergency room via EMS today after she noticed that she was getting dizzy, lightheaded, felt like she was going to pass out. She was actually in a patient room, excused herself, went out into the hallway and sat down. She reports the next thing she remembers is EMS talking to her. EMS reports that on arrival, her heart rate was in the 30s and 40s. She does have a past medical history pertinent for atrial fibrillation, atrial flutter, has had ablations, 3 STEMI, 3 cardiac catheterizations, has reactive airway disease, asthma and allergies, pernicious anemia, duodenal ulcers, iron deficiency anemia, hyperthyroidism, osteoarthritis and does have a LINQ recorder implanted after having a similar episode several months ago. Lab work with troponin x3 undetectable. Urine was negative. Sodium mildly decreased at 134. Hemoglobin 11, hematocrit 33.2, and platelet count 265. CT of the head showed no acute abnormality. The patient will be admitted to the telemetry unit for further management. REVIEW OF SYSTEMS: The patient reports syncope and collapse. Reports some dysphagia that is resolved. Reports some dizziness. Denies any abdominal pain, nausea, vomiting, diarrhea. PHYSICAL EXAMINATION: VITAL SIGNS: Blood pressure 109/60, pulse 53, respirations 18, pO2 saturations are 98% on room air, temp is 97.9. CONSTITUTIONAL: The patient is alert and oriented to person, place, and time. Speech is normal. HEENT: Head is atraumatic and normocephalic. Eyes, pupils are equally round and reactive to light. Extraocular muscles are intact. ENT, mouth exam is normal. Mucous membranes are moist. NECK: Normal range of motion. Trachea is midline. RESPIRATORY/CHEST: Breath sounds are clear. Chest expansion is equal. CARDIOVASCULAR: Has a regular rate and rhythm. Heart sounds are normal. ABDOMEN: Nontender. Bowel sounds are heard. BACK: Normal inspection. Normal range of motion. UPPER EXTREMITIES: Range of motion is normal. Motor strength is normal. Sensation intact. Radial pulses are normal. LOWER EXTREMITIES: Normal inspection. Normal range of motion. Motor strength is normal. Pedal pulses are normal. NEURO: The patient is oriented to person, place, and time. There are no focal motor or sensory deficits. SKIN: Warm, dry, normal in color. ASSESSMENT AND PLAN: 1. Syncope and collapse. It was noted when the patient first got to the ER that her heart rate was in the 40s and 50s. The patient does have a LINQ recorder which we will interrogate. We will ask Cardiology to consult. The patient sees Dr. Rodriguez as an outpatient. Reports that her last echo was more than 6 months ago. We will obtain an echocardiogram, vital signs with orthostatics. 2. History of hypertension. We will restart home medications. 3. History of coronary artery disease. We will continue home medications. Ask Cardiology to consult. 4. History of gastroesophageal reflux disease. We will restart home medications. 5. History of asthma. We will restart inhalers, home medications. 6. Deep venous thrombosis and gastrointestinal prophylaxis started. ALLERGIES: MORPHINE, ADHESIVE, ANYTHING FISH DERIVED, SHELLFISH DERIVED, SHRIMP, TRAZODONE, ETOMIDATE, IODINE, CAFFEINE. HOME MEDICATIONS: 1. Tylenol 1000 mg q.4 hours as needed. 2. Alprazolam 0.25 mg p.o. daily. 3. Alprazolam 0.25 mg needed. 4. Aspirin 81 mg p.o. daily. 5. Tessalon 100 mg p.o. t.i.d. 6. Zyrtec 10 mg p.o. at bedtime. 7. Cyanocobalamin 1000 mcg subcu q.28 days. 8. Bentyl 10 mg p.o. q.i.d. p.r.n. 9. Diltiazem 120 mg p.o. at 1800 hours. 10. Docusate 100 mg p.o. b.i.d. as needed. 11. Cymbalta 60 mg p.o. daily. 12. Estrace 1 g vaginal every seven days. 13. Fluconazole 2 sprays each naris. 14. Mucinex 600 mg p.o. b.i.d. as needed. 15. Isosorbide 120 mg p.o. daily. 16. Xopenex 2 puffs q.6 hours as needed. 17. Singulair 10 mg p.o. at bedtime. 18. Nitrostat 0.4 mg sublingual q.5 minutes. 19. Ondansetron 4 mg p.o. q.4 hours as needed. 20. Protonix 40 mg p.o. b.i.d. as needed. 21. MiraLAX 17 g p.o. daily. 22. Ranexa 1000 mg p.o. b.i.d. 23. Crestor 5 mg p.o. at bedtime. 24. Tramadol 50 mg q.i.d. p.r.n. 25. Ambien 5 mg p.o. at bedtime p.r.n. Job ID: [id number]
[2019-07-28] MEDS ORDERED: FLU VACC TS2019-20(65YR UP)/PF 180 MCG/0.5 ML SYRINGE IM ONE (09:00)
[2019-07-28] MEDS: Aspirin Chewable 81 MG TAB PO SCH (09:16)
[2019-07-28] MEDS: Famotidine 20 MG TAB PO SCH ×2 (09:17→22:31)
[2019-07-28] MEDS: DULoxetine 60 MG CAP PO SCH (09:17)
[2019-07-28] MEDS: Enoxaparin Sodium 40 MG/0.4 ML SYRINGE SC SCH (09:17)
[2019-07-28] MEDS: Polyethylene Glycol 3350 17 GM Packet PO SCH (09:18)
--- NOTE | 2019-07-28 12:04 | PDOC.CPN ---
- Subjective Date: 07/28/19 Time: 12:06 Interval history: The pt seen and examined. No overnight events. No cardiac complaints. She cont. having mild woozy like dizziness. She could take shower without any difficulties. - Objective Allergies/Adverse Reactions: Allergies Allergy/AdvReac Type Severity Reaction Status Date / Time morphine Allergy Severe Short of Verified 07/27/19 17:59 Breath adhesive Allergy Intermediate Rash Verified 07/27/19 17:59 fish derived Allergy Verified 07/27/19 17:59 shellfish derived Allergy Rash Verified 07/27/19 17:59 shrimp Allergy Verified 07/27/19 17:59 trazodone Allergy Verified 07/27/19 17:59 etomidate AdvReac Severe Anaphylaxis Verified 07/27/19 17:59 iodine AdvReac Intermediate Rash Verified 07/27/19 17:59 caffeine AdvReac Verified 07/27/19 17:59 Visit Medications: Current Medications Acetaminophen (Tylenol) 650 mg PO Q4H PRN PRN Reason: Headache/Fever/Mild Pain (1-3) Alprazolam (Xanax) 0.25 mg PO DAILYPRN PRN PRN Reason: Anxiety Aspirin (Aspirin Chewable) 81 mg PO DAILY [facility] Last Admin: 07/28/19 09:16 Dose: 81 mg Dicyclomine HCl (Bentyl) 10 mg PO QID PRN PRN Reason: ibs Diltiazem HCl (Cardizem Sr) 120 mg PO 1800 [facility] Duloxetine HCl (Cymbalta) 60 mg PO DAILY [facility] Last Admin: 07/28/19 09:17 Dose: 60 mg Enoxaparin Sodium (Lovenox) 40 mg SC 0900 [facility] Last Admin: 07/28/19 09:17 Dose: 40 mg Famotidine (Pepcid) 20 mg PO BID [facility] Last Admin: 07/28/19 09:17 Dose: 20 mg Fluticasone Propionate (Flonase Nasal [place]) 0 gm NASAL HS [facility] Isosorbide Mononitrate (Imdur) 120 mg PO DAILY [facility] Last Admin: 07/28/19 09:16 Dose: 120 mg Loratadine (Claritin) 10 mg PO HS [facility] Montelukast Sodium (Singulair) 10 mg PO HS [facility] Nitroglycerin (Nitrostat) 0.4 mg SL Q5MIN PRN PRN Reason: Chest Pain Polyethylene Glycol (Miralax) 17 gm PO DAILY [facility] Last Admin: 07/28/19 09:18 Dose: 17 gm Ranolazine (Ranexa) 1,000 mg PO BID [facility] Last Admin: 07/28/19 09:17 Dose: 1,000 mg Rosuvastatin Calcium (Crestor) 5 mg PO [facility] Senna/Docusate Sodium (Senokot S) 2 tab PO BIDPRN PRN PRN Reason: Constipation Sodium Chloride (Flush - Normal Saline) 10 ml IVF PRN PRN PRN Reason: Saline Flush Tramadol HCl (Ultram) 50 mg PO QIDPRN PRN PRN Reason: Moderate Pain (4-6) Zolpidem Tartrate (Ambien) 5 mg PO HSPRN PRN PRN Reason: Insomnia Vital Signs & Weight: Vital Signs Temp Pulse Resp BP Pulse Ox 07/28/19 09:17 98 07/28/19 08:00 97.9 F 57 L 13 124/60 98 07/28/19 04:00 98.3 F 60 18 120/56 L 97 07/28/19 00:00 97.8 F 69 20 104/52 L 95 Weight 173 lb 3 oz - Physical Exam General: alert & oriented x3 HEENT: mucus membranes moist Neck: supple neck Cardiac: regular rate and rhythm, S1/S2 Lungs: clear to auscultation - Labs Result Diagrams: 07/28/19 04:08 07/28/19 04:08 Troponin/CKMB Troponin I 0.016 ng/mL (< 0.028) 07/27/19 20:20 - Telemetry Sinus rhythms and dysrhythmias: sinus rhythm - Assessment/Plan Assessment/Plan: 1. S/p syncopal episode - LINQ report showed no arrhythmia or pauses during since 10/2017; possible syncopal episode 2/2 orthostatic hypotension; encourage to have more fluid; Echo was taken and the result is pending 2. HTN - stable 3. HLD 4. Vasospasic coronary angina - stable 5. Asthma MAR reviewed Pt. seen and eval. by me. I agree with the A/P by the LOGISTICS OFFICER. The Linq did not indicate any severe bradycardia or pauses. The BP checks for orthostatic hypotension also do not indicate an abnormality. actually the BP per the staff BP checks are higher standing than lying down. The EF is normal. She has mild- moderate MR but otherwise unremarkable echo. I suspect she was orthostatic at the time of syncope but this appears to be stable at this time. I reviewed the MRI and this will be dealt with by neurology. The cardiac status is stable at this time. Chest clear. RRR. No edema. gjmays
--- NOTE | 2019-07-28 13:24 | MRI ---
MRI BRAIN WITHOUT CONTRAST: HISTORY: Syncope CORRELATION: CT scan from 07/27/2019. FINDINGS: No restricted diffusion is seen. There are multiple foci of T2 prolongation in the periventricular wh ite matter, consistent with chronic small vessel ischemic disease. The ventricular size is appropriate and the basilar cisterns are patent. There is an old lacunar infarction in the left cereb ellar hemisphere. No evidence of acute infarct, hemorrhage, midline shift or abnormal extra-axial fluid collections is seen. The visualized paranasal sinuses and mastoid air cells are well-aerated. IMPRESSION: No evidence of acute intracranial process.
--- NOTE | 2019-07-28 15:01 | PDOC.HOSPP ---
- Subjective Encounter Date: 07/28/19 Encounter Time: 10:45 Subjective: no further syncopal episodes, chest pain or palpitations at bedside pt and family worried HIEU didn't discover her bradycardic episode with pulse dropping down to 40's (by manual checks x2 at her clinic and er ekg) no weakness in any extremties her drives her around, she is not driving due to risk of syncope. No seizure like activity witnessed - Objective Vital Signs & Weight: Vital Signs (12 hours) Temp Pulse Resp BP BP Pulse Ox 07/28/19 12:00 98.4 F 65 98 H 119/60 98 07/28/19 09:17 98 07/28/19 08:00 97.9 F 57 L 13 124/60 98 07/28/19 04:00 98.3 F 60 18 120/56 L 97 Weight Weight 173 lb 3 oz I&O: 07/27/19 07/28/19 07/29/19 06:59 06:59 06:59 Intake Total 3400 Output Total 2300 Balance 1100 Result Diagrams: 07/28/19 04:08 07/28/19 04:08 Hospitalist ROS - Medication Medications: Active Medications Generic Name Dose Route Start Last Admin Trade Name Freq PRN Reason Stop Dose Admin Aspirin 81 mg 07/28/19 09:00 07/28/19 09:16 Aspirin Chewable PO 81 mg DAILY [facility] Administration Duloxetine HCl 60 mg 07/28/19 09:00 07/28/19 09:17 Cymbalta PO 60 mg DAILY [facility] Administration Enoxaparin Sodium 40 mg 07/28/19 09:00 07/28/19 09:17 Lovenox SC 40 mg 0900 [facility] Administration Famotidine 20 mg 07/27/19 21:00 07/28/19 09:17 Pepcid PO 20 mg BID [facility] Administration Isosorbide Mononitrate 120 mg 07/28/19 09:00 07/28/19 09:16 Imdur PO 120 mg DAILY [facility] Administration Polyethylene Glycol 17 gm 07/28/19 09:00 07/28/19 09:18 Miralax PO 17 gm DAILY [facility] Administration Ranolazine 1,000 mg 07/28/19 09:00 07/28/19 09:17 Ranexa PO 1,000 mg BID [facility] Administration - Exam General Appearance: NAD, awake alert Eye: PERRL, anicteric sclera ENT: no oropharyngeal lesions, moist mucosa Neck: supple, no JVD Heart: RRR, no murmur Respiratory: no wheezes, no rales Gastrointestinal: soft, non-tender, non-distended, normal bowel sounds Extremities: no cyanosis, no edema Neurological: cranial nerve grossly intact, no focal deficits Psychiatric: normal affect, A&O x 3 Hosp A/P (1) Syncope Code(s): R55 - SYNCOPE AND COLLAPSE Status: Acute (2) Orthostasis Code(s): I95.1 - ORTHOSTATIC HYPOTENSION Status: Acute (3) Vasospastic angina Code(s): I20.1 - ANGINA PECTORIS WITH DOCUMENTED SPASM Status: Chronic (4) Afib Code(s): I48.91 - UNSPECIFIED ATRIAL FIBRILLATION Status: Chronic Qualifiers: Atrial fibrillation type: paroxysmal Qualified Code(s): I48.0 - Paroxysmal atrial fibrillation (5) Dyslipidemia Code(s): E78.5 - HYPERLIPIDEMIA, UNSPECIFIED Status: Chronic (6) Asthma Code(s): J45.909 - UNSPECIFIED ASTHMA, UNCOMPLICATED Status: Chronic Qualifiers: Asthma severity: mild Asthma persistence: intermittent Asthma complication type: uncomplicated Qualified Code(s): J45.20 - Mild intermittent asthma, uncomplicated - Plan d/w , will have look into her in am MRI no ac cva but old lacunar infarct in left cerebellar hemisphere, carotid doppler, echo and eeg to complete w/u had +ve orthostasis she just finished a course of levaquin and medrol dose pack for uri/?walking pna hemo/neurostable, clinically no signs of cva prior stress test in 10/11 -ve, echo 10/11 showed ef of 55%. 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 continue imdur, ranexa, cardizem CD, asp, crestor, singulair, cymbalta. To mobilize as tolerated on floor
[2019-07-28] MEDS ORDERED: Diltiazem HCl SR 60 mg Capsule PO SCH (18:00)
[2019-07-28] MEDS ORDERED: Loratadine 10 MG TAB PO SCH (21:00)
[2019-07-28] MEDS ORDERED: Rosuvastatin 5 MG TAB PO SCH (21:00)
[2019-07-28] MEDS ORDERED: Montelukast Sodium 10 mg Tablet PO SCH (21:00)
[2019-07-28] MEDS ORDERED: Fluticasone Propionate Nasal Spray 16 gm Bottle NASAL SCH (21:00)
--- NOTE | 2019-07-29 00:06 | CON ---
DATE OF CONSULTATION: 07/28/2019 CONSULTING PHYSICIAN: Hospitalist Service. IMPRESSION: Syncopal episode. PLAN: Decrease diltiazem dose. 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 She has been on diltiazem for a number of years. She was at the clinic when she started to feel very lightheaded. She sat herself down. She continued to feel very weak and woozy. Her hearing became altered. Her vision dimmed and she lost awareness briefly. She started to regain awareness and was trying to talk. Her co-worker reports that she was unable to speak. She was diaphoretic and pale and cold. EMS arrived. Her blood pressure was 70/40. She was laid on a stretcher. While lying down, she started to feel better. It took her several minutes to regain her composure. There was no associated chest pain or palpitation. She had no lateralized weakness or numbness. She was admitted for further evaluation. She has had an MRI of the brain done, which did not show any evidence of ischemic changes. Her carotid ultrasound was clear. Her lab work was all unremarkable. Her highest blood pressure lying in bed has been 120/50. She was off her diltiazem today. She reports that she feels much better. Cardiology has been consulted. She has a loop recorder in place. No arrhythmias have been picked up on. She has a history of atrial fibrillation with 5 prior ablations. PAST MEDICAL HISTORY: Otherwise negative. ALLERGIES: MORPHINE, TAPE, TRAZODONE, IODINE, CAFFEINE, SHELLFISH, ETOMIDATE. SOCIAL HISTORY: No tobacco or alcohol use. FAMILY HISTORY: Noncontributory. REVIEW OF SYSTEMS: Otherwise negative. PHYSICAL EXAMINATION: GENERAL: She is a well-nourished, middle-aged woman, sitting at the bedside, in no acute distress. VITAL SIGNS: Have been stable. She is in a sinus bradycardia. Blood pressure is in the range of 110-120/50. HEENT: Pupils are equal and reactive. Conjunctivae are clear. Oropharynx is clear. NECK: Supple. EXTREMITIES: No cyanosis. NEUROLOGIC: She is alert and appropriate. Her speech is fluent and clear. Cranial nerves are intact. There are no motor deficits. She has no sensory loss. She has normal balance and coordination. SUMMARY: Middle-aged woman with hypotension and bradycardia, which likely resulted in a syncopal episode while sitting up. This resulted in prolonged cerebral ischemia of slower recovery. She is back to her baseline. I do not see any need for further neurologic workup. Job ID: [id number]
--- NOTE | 2019-07-29 01:35 | CON ---
DATE OF CONSULTATION: 07/27/2019 INDICATION FOR CONSULTATION: This is a 68-year-old female whom I have followed for many years. She has a history of vasospastic coronary artery disease. She also has had some problems with arrhythmias. She has had multiple ablations in the past. Yesterday while she was at work, she suddenly felt like she was going to pass out. She went to tell someone of her colleagues. They took her blood pressure, it was significantly decreased and also heart rate was in the 40s according to them and then she apparently had a syncopal episode and became somewhat confused, apparently had some slurred speech. She was sent to the emergency room. Her heart rate in the emergency room, apparently at times was in the 40s, but mainly was in the 50s and 60s and then she was admitted for further evaluation. She does have a LINQ which has been implanted about a year or so ago and we did interrogate this and was not found to have any significant arrhythmias. There were no significant pauses and no significant bradycardia, but I believe the lower rate has been set at 40 and this then readjusted to a lower rate of 50, I believe so that we can see whether or not she has any further arrhythmias. At this time, otherwise, there have been no acute cardiac issues that have been appreciated and no significant arrhythmias that have been noted. PAST MEDICAL HISTORY: Please refer the notes dictated by the nurse practitionerTonja. SOCIAL HISTORY: Please refer the notes dictated by the nurse practitionerTonja. FAMILY HISTORY: Please refer the notes dictated by the nurse practitionerTonja. REVIEW OF SYSTEMS: Please refer the notes dictated by the nurse practitionerTonja. MEDICATIONS: Please refer the notes dictated by the nurse practitionerTonja. ALLERGIES: PLEASE REFER THE NOTES DICTATED BY THE NURSE PRACTITIONERTONJA. PHYSICAL EXAMINATION: GENERAL: Reveals a well-developed, well-nourished female, who is in no acute distress at this time. She is alert, she is oriented. VITAL SIGNS: O2 saturations are 100%, blood pressure is 136/60, heart rate is in the 60s to 70s. She is afebrile. HEENT: Show the head to be normocephalic and atraumatic. Carotid pulses are present. CHEST: Clear to auscultation. CARDIOVASCULAR: Reveals a regular rate and rhythm. I do not hear any significant murmurs, heaves, thrills, bruits, or rubs. ABDOMEN: Shows mild obesity with positive bowel sounds. No organomegaly or masses are noted. Femoral pulses are present. EXTREMITIES: Show no clubbing, cyanosis, or edema. Pedal pulses are present. NEUROLOGIC: At this time, she appears to be intact. SKIN: Warm and dry. IMPRESSION: 1. Syncopal episode which appears to be due to orthostatic hypotension or vasovagal with decrease in blood pressure, decrease in heart rate of uncertain etiology. She has been on medications for a recent upper respiratory tract infection. I believe, she has been on Levaquin and it appears that she has had a syncopal episode due to hypotension. At this time, she appears to be more stable. We will continue to monitor the patient. We will see whether or not she has any arrhythmias or any significant bradycardia. Otherwise, from a cardiac standpoint, she appears to be doing relatively well. 2. History of vasospastic coronary artery disease. This remains stable at this time. She has no chest pain. She has been on Ranexa as well as diltiazem for her coronary vasospasms. 3. History of some anemia. Laboratory data does not indicate any significant anemia at this time, at least not significant, but is somewhat mild. It was 11.0, her hemoglobin. 4. History of atrial arrhythmias for which she has undergone multiple ablations in the past. This appears to be stable. We will continue to monitor her very closely to see whether or not she has had any significant bradycardia or other episodes of arrhythmias. Echocardiogram will also be performed. Job ID: [id number]
--- NOTE | 2019-07-29 07:31 | ULT ---
BILATERAL CAROTID DUPLEX ULTRASOUND: HISTORY: Syncope TECHNIQUE: Grayscale, color-flow and spectral Doppler ultrasound imaging of the extracranial carotid artery syst ems was performed bilaterally. FINDINGS: A small amount of plaque seen on either side. The peak systolic velocity in the right ICA measures 79 cm/s with an end-diastolic velocity of 24 cm/ s and a systolic ratio of 0.99. The peak systolic velocity in the left ICA measures 52 cm/s with an end-diastolic velocity of 18 cm/s and a systolic ratio of 0.56. Flow in both vertebral arteries remains antegrade. IMPRESSION: No evidence of hemodynamically significant stenosis
[2019-07-29] MEDS: Enoxaparin Sodium 40 MG/0.4 ML SYRINGE SC SCH (08:49)
[2019-07-29] MEDS: Polyethylene Glycol 3350 17 GM Packet PO SCH (08:49)
[2019-07-29] MEDS: DULoxetine 60 MG CAP PO SCH (08:50)
[2019-07-29] MEDS: Famotidine 20 MG TAB PO SCH (08:50)
[2019-07-29] MEDS: Aspirin Chewable 81 MG TAB PO SCH (08:50)
--- NOTE | 2019-07-29 11:08 | PDOC.CPN ---
- Subjective Date: 07/29/19 Time: 11:25 Interval history: The pt seen and examined. No overnight events. No cardiac complaints - Objective Allergies/Adverse Reactions: Allergies Allergy/AdvReac Type Severity Reaction Status Date / Time morphine Allergy Severe Short of Verified 07/27/19 17:59 Breath adhesive Allergy Intermediate Rash Verified 07/27/19 17:59 fish derived Allergy Verified 07/27/19 17:59 shellfish derived Allergy Rash Verified 07/27/19 17:59 shrimp Allergy Verified 07/27/19 17:59 trazodone Allergy Verified 07/27/19 17:59 etomidate AdvReac Severe Anaphylaxis Verified 07/27/19 17:59 iodine AdvReac Intermediate Rash Verified 07/27/19 17:59 caffeine AdvReac Verified 07/27/19 17:59 Visit Medications: Current Medications Acetaminophen (Tylenol) 650 mg PO Q4H PRN PRN Reason: Headache/Fever/Mild Pain (1-3) Last Admin: 07/29/19 02:40 Dose: 650 mg Alprazolam (Xanax) 0.25 mg PO DAILYPRN PRN PRN Reason: Anxiety Aspirin (Aspirin Chewable) 81 mg PO DAILY [facility] Last Admin: 07/29/19 08:50 Dose: 81 mg Dicyclomine HCl (Bentyl) 10 mg PO QID PRN PRN Reason: ibs Diltiazem HCl (Cardizem Sr) 60 mg PO 1800 [facility] Duloxetine HCl (Cymbalta) 60 mg PO DAILY [facility] Last Admin: 07/29/19 08:50 Dose: 60 mg Enoxaparin Sodium (Lovenox) 40 mg SC 0900 [facility] Last Admin: 07/29/19 08:49 Dose: 40 mg Famotidine (Pepcid) 20 mg PO BID [facility] Last Admin: 07/29/19 08:50 Dose: 20 mg Fluticasone Propionate (Flonase Nasal [place]) 0 gm NASAL HS [facility] Last Admin: 07/28/19 22:31 Dose: 1 spr Isosorbide Mononitrate (Imdur) 120 mg PO DAILY [facility] Last Admin: 07/29/19 08:50 Dose: 120 mg Loratadine (Claritin) 10 mg PO HS [facility] Last Admin: 07/28/19 22:31 Dose: 10 mg Montelukast Sodium (Singulair) 10 mg PO HS [facility] Last Admin: 07/28/19 22:31 Dose: 10 mg Nitroglycerin (Nitrostat) 0.4 mg SL Q5MIN PRN PRN Reason: Chest Pain Polyethylene Glycol (Miralax) 17 gm PO DAILY [facility] Last Admin: 07/29/19 08:49 Dose: 17 gm Ranolazine (Ranexa) 1,000 mg PO BID [facility] Last Admin: 07/29/19 08:49 Dose: 1,000 mg Rosuvastatin Calcium (Crestor) 5 mg PO [facility] Last Admin: 07/28/19 22:34 Dose: 5 mg Senna/Docusate Sodium (Senokot S) 2 tab PO BIDPRN PRN PRN Reason: Constipation Sodium Chloride (Flush - Normal Saline) 10 ml IVF PRN PRN PRN Reason: Saline Flush Tramadol HCl (Ultram) 50 mg PO QIDPRN PRN PRN Reason: Moderate Pain (4-6) Zolpidem Tartrate (Ambien) 5 mg PO HSPRN PRN PRN Reason: Insomnia Vital Signs & Weight: Vital Signs Temp Pulse Resp BP BP Pulse Ox 07/29/19 07:15 98.0 F 63 16 108/59 L 97 07/29/19 04:00 57 L 121/58 L Weight 173 lb 3 oz - Physical Exam General: alert & oriented x3 Neck: supple neck Cardiac: regular rate and rhythm, S1/S2 Lungs: clear to auscultation Neuro: cranial nerve 2-12 intact - Labs Result Diagrams: 07/28/19 04:08 07/28/19 04:08 Troponin/[facility] Troponin I 0.016 ng/mL (< 0.028) 07/27/19 20:20 - Telemetry Sinus rhythms and dysrhythmias: sinus rhythm - Assessment/Plan Assessment/Plan: 1. S/p syncopal episode - LINQ report showed no arrhythmia or pauses during since 10/2017; possible syncopal episode 2/2 orthostatic hypotension; encourage to have more fluid; Echo was taken and the result is pending 2. HTN - stable 3. HLD 4. Vasospasic coronary angina - stable 5. Asthma 6. Prox Afib with hx of total 5 RFA - remains in SR; MAR reviewed * Echo on 07/28/2019 with HR 60-65%, mild-mod MR, mild TR, mild ID Pt. seen and eval. by me. I agree with the A/P by the BATTERY CHECKER. No further dizzines.no bradycardia or arrythmias.
[2019-07-29 11:54] VITALS: BP 109/59; TEMP 98.3
--- NOTE | 2019-07-29 12:20 | PDOC.HOSPP ---
- Subjective Encounter Date: 07/29/19 Encounter Time: 10:15 Subjective: No complaint. Feels better. - Objective Vital Signs & Weight: Vital Signs (12 hours) Temp Pulse Resp BP BP Pulse Ox 07/29/19 11:51 98.3 F 59 L 18 109/59 L 99 07/29/19 07:15 98.0 F 63 16 108/59 L 97 07/29/19 04:00 57 L 121/58 L Weight Weight 173 lb 3 oz I&O: 07/28/19 07/29/19 07/30/19 06:59 06:59 06:59 Intake Total 3400 2205 Output Total 2300 2400 1900 Balance 1100 -195 -1900 Result Diagrams: 07/28/19 04:08 07/28/19 04:08 Hospitalist ROS - Medication Medications: Active Medications Generic Name Dose Route Start Last Admin Trade Name Freq PRN Reason Stop Dose Admin Acetaminophen 650 mg 07/27/19 16:22 07/29/19 02:40 Tylenol PO 650 mg Q4H PRN Administration Headache/Fever/Mild Pain (1-3) Aspirin 81 mg 07/28/19 09:00 07/29/19 08:50 Aspirin Chewable PO 81 mg DAILY [facility] Administration Duloxetine HCl 60 mg 07/28/19 09:00 07/29/19 08:50 Cymbalta PO 60 mg DAILY [facility] Administration Enoxaparin Sodium 40 mg 07/28/19 09:00 07/29/19 08:49 Lovenox SC 40 mg 0900 [facility] Administration Famotidine 20 mg 07/27/19 21:00 07/29/19 08:50 Pepcid PO 20 mg BID [facility] Administration Fluticasone Propionate 0 gm 07/28/19 21:00 07/28/19 22:31 Flonase Nasal [place] NASAL 1 spr HS [facility] Administration Isosorbide Mononitrate 120 mg 07/28/19 09:00 07/29/19 08:50 Imdur PO 120 mg DAILY [facility] Administration Loratadine 10 mg 07/28/19 21:00 07/28/19 22:31 Claritin PO 10 mg HS [facility] Administration Montelukast Sodium 10 mg 07/28/19 21:00 07/28/19 22:31 Singulair PO 10 mg HS [facility] Administration Polyethylene Glycol 17 gm 07/28/19 09:00 07/29/19 08:49 Miralax PO 17 gm DAILY [facility] Administration Ranolazine 1,000 mg 07/28/19 09:00 07/29/19 08:49 Ranexa PO 1,000 mg BID [facility] Administration Rosuvastatin Calcium 5 mg 07/28/19 21:00 07/28/19 22:34 Crestor PO 5 mg HS [facility] Administration - Exam General Appearance: NAD Neck: no JVD Heart: RRR Respiratory: CTAB Gastrointestinal: soft Extremities: no edema Neurological: no weakness Psychiatric: normal affect, A&O x 3 Hosp A/P (1) Dyslipidemia Code(s): E78.5 - HYPERLIPIDEMIA, UNSPECIFIED Status: Acute (2) Orthostasis Code(s): I95.1 - ORTHOSTATIC HYPOTENSION Status: Acute (3) Syncope Code(s): R55 - SYNCOPE AND COLLAPSE Status: Acute (4) Afib Code(s): I48.91 - UNSPECIFIED ATRIAL FIBRILLATION Status: Chronic Qualifiers: Atrial fibrillation type: paroxysmal Qualified Code(s): I48.0 - Paroxysmal atrial fibrillation - Plan Bradycardia induced syncope... Diltiazem decreased. f/u with cardiology.
--- NOTE | 2019-07-29 15:05 | CON ---
DATE OF CONSULTATION: 07/29/2019 REASON FOR CONSULTATION: Syncope and collapse. This report is dictated as scribe for Dr. Meliza Shipley. HISTORY OF PRESENT ILLNESS: This is a 68-year-old woman, well known to our practice for history of atrial arrhythmias and recurrent syncopal episodes. She has had 5 prior atrial ablations and was last seen in our clinic in March of 2018. She had a loop recorder placed in October of 2017 for syncope and collapse. 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 She has required chronic therapy for Prinzmetal angina with diltiazem, which has caused some borderline hypotension and bradycardia. Once again, Ms. James had a syncopal episode. 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 She stepped out and found her nurse. At which point, she completely passed out. They checked her blood pressure manually and reported as 70/42. EMS arrived and brought her to the emergency room. Her blood pressure had recovered, but she remained quite groggy and minimally responsive with heart rate in the mid to low 50s. She reports she recently was diagnosed with walking pneumonia and had just returned to work that day and had been feeling well. Since being admitted, she has not had any recurrent syncopal episodes. PAST MEDICAL HISTORY: 1. Prinzmetal angina. 2. ST-elevation MIs in the absence of coronary artery disease. 3. Reactive airway disease. 4. Atrial arrhythmias, first diagnosed in 1992 with 5 prior ablations. 5. Duodenal ulcer in 1998. 6. Pernicious anemia. 7. Recurrent syncope and collapse. 8. Iron-deficiency anemia. 9. Arthritis of the right knee. 10. 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 ALLERGIES: MORPHINE, ETOMIDATE, IODINE, SHELLFISH, SEAFOOD, ADHESIVE TAPE, TRAZODONE, AND CAFFEINE. REVIEW OF SYSTEMS: 12-point review of systems was conducted, is negative except that listed above in HPI. HOME MEDICATIONS: Include: 1. Estradiol. 2. Crestor. 3. Xopenex as needed. 4. Bentyl as needed. 5. Aspirin 81 mg daily. 6. Vitamin B12 injection monthly. 7. Zyrtec 10 mg at bedtime. 8. Benzonatate 100 mg t.i.d. as needed. 9. Diltiazem HCL 120 mg daily. 10. Cymbalta 60 mg daily. 11. Singulair daily. 12. Imdur 120 mg daily. 13. Ranexa 1000 mg p.o. b.i.d. 14. MiraLAX daily. 15. Pantoprazole. FAMILY HISTORY: Father has a history of hypertension, coronary artery disease, and bypass at age 65, aortic stenosis and at age 80 from congestive heart failure. Her mother from ALS at the age of 62. Paternal grandfather has cerebral aneurysm. Paternal grandfather at 80 from emphysema and heart failure. Maternal grandmother at 85 from type 2 diabetes complications, also had Alzheimer's, heart disease, and hypertension. Maternal grandfather in his 60s from probable [place]. SOCIAL HISTORY: She is . 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 She denies any alcohol, tobacco, or illicit drug use. PHYSICAL EXAMINATION: VITAL SIGNS: Temperature 98.3, pulse 59, blood pressure 109/59, oxygen is 99% on room air, and respirations 18. GENERAL: The patient is alert and oriented. Speech is clear. Affect is appropriate. She has no apparent distress at the time of exam. NECK: Supple without jugular venous distention. LUNGS: Clear to auscultation bilaterally without wheezes, crackles, or rhonchi. Respirations are even and unlabored. HEART: Rate is regularly regular with crisp S1 and S2. No murmur, rub, or gallop is appreciated. PMI is nondisplaced. ABDOMEN: Soft, nontender without palpable masses. EXTREMITIES: Warm and dry to touch, well perfused without clubbing, cyanosis, or edema. NEUROLOGIC: Grossly intact and nonfocal. Gait is stable. DATABASE: Laboratory; hemoglobin 10.7, platelet count 275. Chemistry unremarkable. Troponins were negative. Telemetry and EKGs reviewed and that showed sinus rhythm. [employer] ILR was interrogated, shows sinus rhythm with ventricular rates generally stay between 50 and 70 beats per minute. Occasional bradycardia. Several symptom triggers were initiated showing sinus rhythm versus occasional trigeminal PACs. No pauses. Sen detection was changed from 40 beats per minute to 50 beats per minute. No bradycardic episodes were captured. No tachyarrhythmias were captured. IMPRESSION: 1. Recurrent syncope and collapse. 2. Atrial arrhythmias, currently maintaining sinus rhythm. 3. Implantable loop recorder, functioning normally and no significant arrhythmias detected. 4. Prinzmetal angina, requiring chronic antianginal medication management. PLAN AND RECOMMENDATIONS: At this point, there is no clear indication for pacemaker therapy. Her loop recorder is working well and has not recorded any significant bradycardic or pause episodes. Her story is highly suspicious for vasovagal hypotension in etiology. I did increase her bradycardia detection limit to 50 beats per minute. At this point, we will try to wean AV wagner blocking agents to prevent further bradycardia or contribution to hypotension with this vasovagal sensitivity. Certainly, if there is a correlation between symptoms and her bradycardia or significant pauses seen, once AV wagner blocking agents have been weaned, we could consider a pacemaker, but at this time, we would refrain. We will see her back in 6 weeks for routine EP followup in clinic. Thank you for allowing us to participate in the care of this patient. Job ID: [id number]
[2019-07-29] MEDS ORDERED: Diltiazem HCl SR 60 mg Capsule PO SCH (18:00)
--- NOTE | 2019-08-01 10:41 | DIS ---
DATE OF ADMISSION: 07/27/2019 DATE OF DISCHARGE: 07/29/2019 ADMITTING DIAGNOSES: Syncopal episode. SECONDARY DIAGNOSES: 1. History of hypertension. 2. History of coronary artery disease. 3. History of gastroesophageal reflux disease. 4. History of asthma. DISCHARGE DIAGNOSES: 1. History of hypertension. 2. History of coronary artery disease. 3. History of gastroesophageal reflux disease. 4. History of asthma. 5. Syncope due to severe bradycardia associated with hypotension. PROCEDURES: Brain MRI, brain CT, carotid Doppler, echocardiogram. [employer] SAFE: 1. Dr. Perez. 2. Dr. Bazzi. COURSE OF HOSPITALIZATION: Uncomplicated, responded well to management. The patient is clinically stable at this time, being discharged home. DISCHARGE MEDICATIONS: Please see discharge medication reconciliation sheet. The patient's medications were readjusted. TIME SPENT: Discharge time, 32 minutes. FOLLOWUP: The patient is to follow up with the leasing specialist and also with PCP. Job ID: [id number]
== END 2019-07-29 14:42 | disposition home or self-care (01) ==
LOC: ERS 10:41 → 2NO 17:19 → INTOOBSV 17:19
PROVIDERS: ADMIT Internal Medicine; ATTEND Internal Medicine
DX: I95.1 Orthostatic hypotension (principal); I10 Essential (primary) hypertension; I25.111 Atherosclerotic heart disease of native coronary artery with angina pectoris with documented spasm; K21.9 Gastro-esophageal reflux disease without esophagitis; I48.0 Paroxysmal atrial fibrillation; I48.92 Unspecified atrial flutter; I25.2 Old myocardial infarction; J45.20 Mild intermittent asthma, uncomplicated; M19.90 Unspecified osteoarthritis, unspecified site; E78.5 Hyperlipidemia, unspecified; Z79.82 Long term (current) use of aspirin; Z79.899 Other long term (current) drug therapy; Z88.5 Allergy status to narcotic agent; Z88.8 Allergy status to other drugs, medicaments and biological substances; Z91.013 Allergy to seafood; Z91.041 Radiographic dye allergy status; Z95.818 Presence of other cardiac implants and grafts
CPT/HCPCS: 36415; 70450; 70551; 80048; 80053; 81003; 82306; 84484; 85025; 93005; 93306; 93880; 95816; 95819; G0378; J1650

== ENCOUNTER 2019-09-30 07:42 | Outpatient (CLI) | payer BC, MEDICARE ==
--- NOTE | 2019-10-06 13:26 | MMO ---
Bilateral MAMMO Bilat Screen [facility]. CLINICAL HISTORY: Patient is 68 years old and is seen for screening. The patient has no family history of breast cancer. The patient has no personal history of cancer. VIEWS: The views performed were: bilateral craniocaudal with tomosynthesis and bilateral mediolateral oblique with tomosynthesis. FILMS COMPARED: The present examination has been compared to prior imaging studies performed at [facility] on 09/20/2015, 09/18/2016, 09/23/2017 and 09/24/2018. This study has been interpreted with the assistance of computer-aided detection. MAMMOGRAM FINDINGS: There are scattered fibroglandular densities. There are stable benign appearing calcifications seen in both breasts. There are also vascular calcifications. There are no suspicious masses, suspicious calcifications, or new areas of architectural distortion. IMPRESSION: THERE IS NO MAMMOGRAPHIC EVIDENCE OF MALIGNANCY. A ROUTINE FOLLOW-UP MAMMOGRAM IN 1 YEAR IS RECOMMENDED. THE RESULTS OF THIS EXAM WERE SENT TO THE PATIENT. ACR BI-RADS Category 2 - Benign finding MAMMOGRAPHY NOTE: 1. A negative mammogram report should not delay a biopsy if a dominant of clinically suspicious mass is present. 2. Approximately 10% to 15% of breast cancers are not detected by mammography. 3. Adenosis and dense breasts may obscure an underlying neoplasm. Reported by: DARIN LEVY MD Electonically Signed: [id number]
== END 2019-09-30 07:43 | disposition home or self-care (01) ==
LOC: BICMAMMO 07:42
PROVIDERS: ATTEND Family Medicine
DX: Z12.31 Encounter for screening mammogram for malignant neoplasm of breast (principal)
CPT/HCPCS: 77063; 77067

== ENCOUNTER 2020-10-01 08:31 | Inpatient (IN) | payer BC, MEDICARE ==
[2020-10-01 08:57] LABS: #Basophils 0.1 thou/uL (0.0-0.2); #Lymphocytes 1.8 thou/uL (1.20-3.40); #Monocytes 0.4 thou/uL (0.11-0.59); #Neutrophils 2.1 thou/uL (1.40-6.50); %Basophils 1.2 % (0.0-1.0); %Lymphocytes 40.9 % (21.0-51.0); %Monocytes 9.8 % (0.0-10.0); Hemoglobin 11.8 g/dL (12.0-16.0); Mean Corpuscular HGB CONC 32.9 g/dL (32.0-36.0); Mean Corpuscular Hemoglobin 31.9 pg (27.0-31.0); Mean Corpuscular Volume 97.1 fL (78.0-98.0); Mean Platelet Volume 6.9 fL (7.4-10.4); Platelet Count 235 thou/uL (130-400); RBC Distribution Width 11.9 % (11.5-14.5); Red Blood Cell (RBC) Count 3.69 mill/uL (4.20-5.40); White Blood Cell (WBC) Count 4.4 thou/uL (4.8-10.8)
--- NOTE | 2020-10-01 09:06 | RAD ---
XR Chest 1 View Portable History: Chest pain Comparison: Radiograph February 02, 2019 Findings: Heart size mildly enlarged. Pulmonary arteries are distended. Mild scattered interstitial s carring throughout the lungs. No pneumothorax. No acute osseous abnormality. Loop recording device projects over the left hemithorax. Mild dextroscoliosis midthoracic spine. Impression: Chronic findings. No acute intrathoracic abnormality.
[2020-10-01 09:17] LABS: ALT (SGPT) 8 U/L (8-55); AST (SGOT) 18 U/L (5-34); Alkaline Phosphatase 83 U/L (40-110); Anion Gap 16 mmol/L (10-20); BUN (Urea Nitrogen) 5 mg/dL (9.8-20.1); Bilirubin, Total 0.8 mg/dL (0.2-1.2); CK (CPK) 58 U/L (29-168); Calc. Creatinine Clearance 0 mL/min (70-130); Carbon Dioxide 22 mmol/L (23-31); Chloride 100 mmol/L (98-107); Globulin 2.9 g/dL (2.4-3.5); Glucose 98 mg/dL (80-115); Lipase 16 U/L (8-78); Protein, Total 6.9 g/dL (5.8-8.1); Sodium 134 mmol/L (136-145)
[2020-10-01 09:40] LABS: CKMB 1.2 ng/mL (0-6.6)
[2020-10-01] MEDS ORDERED: Aspirin Chewable 81 MG TAB ONE (09:50)
[2020-10-01] MEDS ORDERED: Nitroglycerin 0.4 MG TAB 1 EACH ONE (09:50)
[2020-10-01] MEDS ORDERED: Ondansetron PF 4 MG/2 ML Vial ONE (10:07)
[2020-10-01] MEDS ORDERED: Enoxaparin Sodium 80 MG/0.8 ML SYRINGE ONE (10:58)
[2020-10-01] MEDS ORDERED: Ondansetron PF 4 MG/2 ML Vial IVP PRN (11:16)
[2020-10-01 13:14] LABS: Troponin I 0.037 ng/mL (< 0.028)
[2020-10-01 15:47] VITALS: BMI 42.5
[2020-10-01 15:58] LABS: Troponin I 0.015 ng/mL (< 0.028)
[2020-10-01] MEDS: Nitroglycerin 0.4 MG TAB (25 Tab Bottle) SL PRN ×2 (16:35→16:43)
[2020-10-01] MEDS: Acetaminophen 325 MG TAB PO PRN (16:50)
[2020-10-01 20:49] LABS: SARS-CoV-2 PCR by NAA Not Detected (NotDetected)
--- NOTE | 2020-10-01 21:07 | PDOC.HHP ---
Hospitalist HPI chest pain History of Present Illness: Patient is 69-year-old female with PMH of Prinzmetal angina (resulting in 3 MA, in the absence of CAD), paroxysmal A. fib, HTN, GERD, and chronic anemia who presents to the ED with substernal chest pain that started yesterday. Pain is pressure-like, intermittent, and started radiating to the back today. Nitro helped previously, but not as much today. She denies shortness of breath or dizziness. ED Course: Initial tropnin mildly elevated. Allergies/Adverse Reactions: Allergy/AdvReac Type Severity Reaction Status Date / Time morphine Allergy Severe Short of Verified 11/12/19 08:21 Breath adhesive Allergy Intermediate Rash Verified 11/12/19 08:21 fish derived Allergy Verified 11/12/19 08:21 shellfish derived Allergy Rash Verified 11/12/19 08:21 shrimp Allergy Verified 11/12/19 08:21 trazodone Allergy Verified 11/12/19 08:21 etomidate AdvReac Severe Anaphylaxis Verified 11/12/19 08:21 iodine AdvReac Intermediate Rash Verified 11/12/19 08:21 caffeine AdvReac Verified 11/12/19 08:21 Home Medications: Medication Instructions Recorded Confirmed Type ALPRAZolam 0.25 mg PO DAILY PRN 10/07/17 07/27/19 History ALPRAZolam [Xanax] 0.5 mg PO DAILY PRN 10/07/17 07/27/19 History Acetaminophen [Tylenol Extra 1,000 mg PO Q4HR PRN 10/07/17 07/27/19 History Strength] Aspirin Chewable [Aspirin Chewable 81 mg PO DAILY 10/07/17 07/27/19 History Tablet] Benzonatate [Tessalon] 100 mg PO TID PRN 10/07/17 07/27/19 History Cetirizine HCl [Zyrtec] 10 mg PO HS 10/07/17 07/27/19 History DULoxetine [Cymbalta] 60 mg PO DAILY 10/07/17 07/27/19 History Dicyclomine [Bentyl] 10 mg PO QID PRN 10/07/17 07/27/19 History Docusate [Colace] 100 mg PO BID PRN 10/07/17 07/27/19 History Fluticasone Propionate [Flonase 2 spray EA NARE HS 10/07/17 07/27/19 History Allergy Relief] Isosorbide Mononitrate [Imdur ER] 120 mg PO DAILY 10/07/17 07/27/19 History Levalbuterol Tartrate [Xopenex HFA 2 puff INH Q6HR PRN 10/07/17 07/27/19 History Inhaler] Montelukast Sodium [Singulair] 10 mg PO HS 10/07/17 07/27/19 History Nitroglycerin [Nitrostat] 0.4 mg SL Q5MIN PRN 10/07/17 07/27/19 History Ondansetron [Zofran ODT] 4 mg PO Q4HR PRN 10/07/17 07/27/19 History Pantoprazole [Protonix] 40 mg PO BID PRN 10/07/17 07/27/19 History Polyethylene Glycol 3350 [Miralax] 17 gm PO DAILY 10/07/17 07/27/19 History Ranolazine [Ranexa] 1,000 mg PO BID 10/07/17 07/27/19 History Zolpidem Tartrate [Ambien] 5 mg PO HS PRN 10/07/17 07/27/19 History guaiFENesin ER [Mucinex] 600 mg PO BID PRN 10/07/17 07/27/19 History traMADol HCl [Ultram] 50 mg PO QID PRN 10/07/17 07/27/19 History traMADol HCl [Ultram] 100 mg PO QID PRN 10/07/17 07/27/19 History Cyanocobalamin 1000 MCG/ML VIA 1,000 mcg SC Q28D 11/07/17 07/27/19 History [Vitamin B-12] Estradiol [Estrace 0.01% Vaginal 1 gm VAG Q7D 07/27/19 07/27/19 History Cream] Rosuvastatin [Crestor] 5 mg PO HS 07/27/19 07/27/19 History Diltiazem HCl [Cardizem SR] 60 mg PO 1800 30 Days #30 cap 07/29/19 Rx Diltiazem HCl [Diltiazem 12Hr ER] 60 mg PO 1800 30 Days #30 07/29/19 07/27/19 Rx Past History: PMHx: HTN, GERD, paroxysmal A. fib, Prinzmetal angina (resulting in 3 MA), chronic anemia PSHx: Multiple cardiac ablation FHx: Father: CAD, HTN Social: Drinks alcohol occasionally, she is never smoker, denies drug use Hospitalist HPI ROS Constitutional: denies: fever, chills Eyes: reports: vision change ENT: denies: throat pain Respiratory: denies: shortness of breath Cardiovascular: reports: chest pain Gastrointestinal: denies: nausea, vomiting Genitourinary: denies: dysuria Skin: denies: rash Other: Negative for dizziness All other systems reviewed; all pertinent +/- noted in HPI/Subj Hospitalist Exam Vitals: Vital Signs (12 hours) Temp Pulse Resp BP Pulse Ox 10/01/20 20:00 97.9 F 66 14 119/56 L 96 10/01/20 16:00 98.1 F 65 127/63 100 10/01/20 13:56 98.1 F 71 18 133/70 100 10/01/20 12:45 98.1 F 71 18 133/70 98 Weight Weight 183 lb General Appearance: NAD Eye: PERRL ENT: moist mucosa Neck: supple, no JVD Heart: RRR Respiratory: CTAB, no wheezes, no tachypnea Gastrointestinal: soft, non-tender, non-distended, normal bowel sounds Extremities: no edema Skin: normal turgor Neurological: normal sensation to touch, no weakness Musculoskeletal: normal strength Psychiatric: normal affect, A&O x 3 Hospitalist Results Result Diagrams: 10/01/20 08:44 10/01/20 08:44 Lab results: Laboratory Last Values WBC 4.4 thou/uL (4.8-10.8) L 10/01/20 08:44 RBC 3.69 mill/uL (4.20-5.40) L 10/01/20 08:44 Hgb 11.8 g/dL (12.0-16.0) L 10/01/20 08:44 Hct 35.9 % (36.0-47.0) L 10/01/20 08:44 MCV 97.1 fL (78.0-98.0) 10/01/20 08:44 MCH 31.9 pg (27.0-31.0) H 10/01/20 08:44 MCHC 32.9 g/dL (32.0-36.0) 10/01/20 08:44 RDW 11.9 % (11.5-14.5) 10/01/20 08:44 Plt Count 235 thou/uL (130-400) 10/01/20 08:44 MPV 6.9 fL (7.4-10.4) L 10/01/20 08:44 Neutrophils % 47.0 % (42.0-75.0) 10/01/20 08:44 Lymphocytes % 40.9 % (21.0-51.0) 10/01/20 08:44 Monocytes % 9.8 % (0.0-10.0) 10/01/20 08:44 Eosinophils % 1.0 % (0.0-10.0) 10/01/20 08:44 Basophils % 1.2 % (0.0-1.0) H 10/01/20 08:44 Neutrophils # 2.1 thou/uL (1.40-6.50) 10/01/20 08:44 Lymphocytes # 1.8 thou/uL (1.20-3.40) 10/01/20 08:44 Monocytes # 0.4 thou/uL (0.11-0.59) 10/01/20 08:44 Eosinophils # 0.0 thou/uL (0.0-0.7) 10/01/20 08:44 Basophils # 0.1 thou/uL (0.0-0.2) 10/01/20 08:44 Sodium 134 mmol/L (136-145) L 10/01/20 08:44 Potassium 4.0 mmol/L (3.5-5.1) 10/01/20 08:44 Chloride 100 mmol/L (98-107) 10/01/20 08:44 Carbon Dioxide 22 mmol/L (23-31) L 10/01/20 08:44 Anion Gap 16 mmol/L (10-20) 10/01/20 08:44 BUN 5 mg/dL (9.8-20.1) L 10/01/20 08:44 Creatinine 0.84 mg/dL (0.6-1.1) 10/01/20 08:44 Estimated GFR (MDRD) 68 10/01/20 08:44 Glucose 98 mg/dL (80-115) 10/01/20 08:44 Calcium 9.0 mg/dL (7.8-10.44) 10/01/20 08:44 Total Bilirubin 0.8 mg/dL (0.2-1.2) 10/01/20 08:44 AST 18 U/L (5-34) 10/01/20 08:44 ALT 8 U/L (8-55) 10/01/20 08:44 Alkaline Phosphatase 83 U/L (40-110) 10/01/20 08:44 Creatine Kinase 58 U/L (29-168) 10/01/20 08:44 CK-MB (CK-2) 1.2 ng/mL (0-6.6) 10/01/20 08:44 Troponin I 0.015 ng/mL (< 0.028) 10/01/20 15:14 Serum Total Protein 6.9 g/dL (5.8-8.1) 10/01/20 08:44 Albumin 4.0 g/dL (3.4-4.8) 10/01/20 08:44 Globulin 2.9 g/dL (2.4-3.5) 10/01/20 08:44 Albumin/Globulin Ratio 1.4 g/dL (1.2-2.2) 10/01/20 08:44 Lipase 16 U/L (8-78) 10/01/20 08:44 SARS CoV-2 Rapid Source Nasopharyngeal Swab 10/01/20 11:21 SARS-CoV-2 RNA (STEFANIE) Not Detected (NotDetected) 10/01/20 11:21 Chest x-ray Status: image reviewed by me EKG Status: image reviewed by me (NSR. Non-spesific ST/T wave changes) Hospitalist H&P A/P (1) NSTEMI (non-ST elevated myocardial infarction) Code(s): I21.4 - NON-ST ELEVATION (NSTEMI) MYOCARDIAL INFARCTION Status: Acute Assessment and Plan: Patient presented with substernal chest pain. Troponin minimally elevated initially. Patient has history of MA due to Prinzmetal angina. She received a dose of therapeutic Lovenox in the ED. -trend troponin -telemetry -Nitro SL prn -Cardiology consulted (2) Prinzmetal angina Code(s): I20.1 - ANGINA PECTORIS WITH DOCUMENTED SPASM Status: Chronic Assessment and Plan: -management of NSTEMI as above -continue home meds (3) Afib Code(s): I48.91 - UNSPECIFIED ATRIAL FIBRILLATION Status: Chronic Qualifiers: Atrial fibrillation type: paroxysmal Qualified Code(s): I48.0 - Paroxysmal atrial fibrillation Assessment and Plan: Rate controlled. On Aspirin. -cont home meds (4) HTN (hypertension) Code(s): I10 - ESSENTIAL (PRIMARY) HYPERTENSION Status: Chronic Assessment and Plan: continue home med (5) Chronic anemia Code(s): D64.9 - ANEMIA, UNSPECIFIED Status: Chronic Assessment and Plan: H&H stable. -monitor
[2020-10-01] MEDS: Rosuvastatin 5 MG TAB PO SCH (22:19)
[2020-10-02] MEDS: Nitroglycerin 0.4 MG TAB (25 Tab Bottle) SL PRN (00:15)
--- NOTE | 2020-10-02 00:54 | PDOC.EVN ---
Event Note - Event Note Event Note: Notified by RN at 23:45 patient with chest pain, troponins negative x 3. She received NTG SL x 3 in the ED. Standing order for EKG and NTG prn placed by Dr. Baum at the time of admission. VS: BP 138/74, HR 71, RR 17, O2 sat 100% on RA and Temp 98. Advised to give NTG and obtain EKG, however asked to come to bedside to assess pain. At bedside, patient reports 7/10 pain since 20:00. States she alerted someone of her pain at 21:00 and no interventions done or medications given. She has indigestion, nausea, discomfort to the left side of her chest and "pressure that feels like a knuckle" in the area of the left shoulder blade. Patient has had an RI in the past and pain was similar except pain radiated through chest to the back, rather than a separate discomfort in the back. Asked RN to call for EKG as it had not been done yet and to give the NTG. Orders placed for GI Cocktail. Labs ordered including trop w/ckmb, Mg+ and D- dimer. Repeat EKG showed NSR, no ST changes. Patient states she is known to Dr. Rodriguez and asking on status of consult with cardiology. Dr. Goetz was consulted yesterday at the time of admission. Patient states she was not seen. I have changed the consult to Dr. Rodriguez for the morning. 0100, came to patients bedside to re-assess. Pain has eased but stabbing pain between shoulder blades remains, it is intermittent. Nitro-bid ordered, 1/2 inch. No associated SOB, cough or hemoptysis. No lower leg swelling or edema. Labs showed elevated D-dimer 2.25 and Mg+ 1.5 Magnesium replacement ordered and CTA Chest ordered. She has a documented allergy to Iodine which took place >35 years ago, consisted of a rash. States she has had iodine more recently with prednisone given immediately before the CT scan. Would like to forego 13 hour pre-med protocol. Discussed with Radiology and orders placed for Prednisone 50 mg and Benadryl 50 mg prior to the scan. Patient hemodynamically normal/stable at present. 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
[2020-10-02] MEDS ORDERED: Lidocaine 2% Viscous Solution 10 ML, Aluminum & Magnesium Hydroxide 30 ML SSW SCH (01:15)
[2020-10-02] MEDS: Nitroglycerin 2% Ointment 1 INCH/1 GM Packet TOP SCH ×3 (01:31→22:04)
[2020-10-02] MEDS: Acetaminophen 325 MG TAB PO PRN ×3 (01:32→21:07)
[2020-10-02] MEDS ORDERED: Magnesium 2 GM/50 ML 2 GM in Premix Bag 1 BAG IVPB SCH ×2 (02:00→04:00)
[2020-10-02] MEDS ORDERED: predniSONE 50 MG TAB PO SCH (02:30)
[2020-10-02] MEDS ORDERED: diphenhydrAMINE 50 MG/ML VIAL IVP SCH (02:30)
[2020-10-02 05:20] LABS: #Eosinphils 0.1 thou/uL (0.0-0.7); #Lymphocytes 1.7 thou/uL (1.20-3.40); #Monocytes 0.4 thou/uL (0.11-0.59); #Neutrophils 2.9 thou/uL (1.40-6.50); %Basophils 0.7 % (0.0-1.0); %Eosinophils 1.1 % (0.0-10.0); %Lymphocytes 33.6 % (21.0-51.0); %Monocytes 8.2 % (0.0-10.0); %Neutrophils 56.3 % (42.0-75.0); Hemoglobin 11.1 g/dL (12.0-16.0); Mean Corpuscular HGB CONC 31.8 g/dL (32.0-36.0); Mean Corpuscular Hemoglobin 30.4 pg (27.0-31.0); Mean Corpuscular Volume 95.7 fL (78.0-98.0); Platelet Count 237 thou/uL (130-400); RBC Distribution Width 11.8 % (11.5-14.5); Red Blood Cell (RBC) Count 3.63 mill/uL (4.20-5.40); White Blood Cell (WBC) Count 5.2 thou/uL (4.8-10.8)
[2020-10-02 05:43] LABS: Anion Gap 16 mmol/L (10-20); BUN (Urea Nitrogen) 7 mg/dL (9.8-20.1); Calc. Creatinine Clearance 92 mL/min (70-130); Calcium 8.6 mg/dL (7.8-10.44); Carbon Dioxide 20 mmol/L (23-31); Cardiac Risk 1.8 (Less than 4.5); Chloride 103 mmol/L (98-107); Cholesterol 143 mg/dl (< 200 Desired); Glucose 89 mg/dL (80-115); HDL Cholesterol 80 mg/dL (>60 Neg Risk); LDL Cholesterol, Calculated 54 mg/dL; Sodium 135 mmol/L (136-145); Triglycerides 45 mg/dL (Less than 150)
[2020-10-02 06:04] LABS: CKMB 1.1 ng/mL (0-6.6)
[2020-10-02] MEDS ORDERED: Zolpidem Tartrate 5 MG TAB PO PRN (08:02)
[2020-10-02 08:12] LABS: Troponin I 0.024 ng/mL (< 0.028)
[2020-10-02] MEDS ORDERED: Magnesium Oxide 400 MG TAB PO SCH (08:15)
--- NOTE | 2020-10-02 08:21 | CT ---
PRELIMINARY REPORT/[facility]/EMERGENCY AFTER HOURS PROCEDURE: EXAM: CTA Chest with Intravenous Contrast CLINICAL HISTORY: F67, elevated d-dimer, chest pain, eval for PE. TECHNIQUE: Axial CTA images of the chest with intravenous contrast. Three-dimensional MIP/volume rend ered reformations were performed. CONTRAST: With; ISOVUE 370,100mL COMPARISON: None provided. FINDINGS: PULMONARY ARTERIES There is no intraluminal filling defect suspicious for PE. AORTA No thoracic aortic aneurysm or dissection. LUNGS The lungs are clear. No pulmonary mass. No focal airspace consolidation. PLEURAL SPACES No pleural effusion. No pneumothorax. HEART AND MEDIASTINUM Mild cardiomegaly. Coronary artery calcifications are present. LYMPH NODES No lymphadenopathy. BONES Mild degenerative changes of the spine. CHEST WALL AND UPPER ABDOMEN Status post cholecystectomy. IMPRESSION: No pulmonary embolism. No thoracic aortic aneurysm or dissection. Mild cardiomegaly. ELECTRONICALLY SIGNED BY: Susan Elder MD Oct 02, 2020 4:06:39 AM [facility] FINAL REPORT EMERGENT AFTER HOURS CTA OF THE CHEST WITH CONTRAST: FINDINGS/IMPRESSION: I agree with the findings and impression given in the preliminary report per [facility] physici an. No evidence of pulmonary thromboembolism. POS: EAA
[2020-10-02] MEDS: Aspirin 81 mg Enteric Coated Tablet PO SCH (08:45)
[2020-10-02] MEDS: Sodium Chloride 0.9% 1,000 ML IV SCH ×3 (08:46→23:02)
[2020-10-02] MEDS ORDERED: Regadenoson 0.4 MG/5 ML SYRINGE ONE (09:47)
[2020-10-02] MEDS ORDERED: ALPRAZolam 0.25 MG TAB PO PRN (09:52)
[2020-10-02] MEDS ORDERED: traMADol HCl 50 MG TAB PO PRN (09:52)
[2020-10-02] MEDS ORDERED: Dicyclomine 10 MG CAP PO PRN (09:52)
[2020-10-02] MEDS ORDERED: Docusate 100 MG CAP PO PRN (09:52)
[2020-10-02] MEDS ORDERED: Albuterol 200 PUFF (6.7GM INHALER) INH PRN (10:06)
[2020-10-02] MEDS ORDERED: Iopamidol 370 76% 100 ML VIAL ONE (10:26)
[2020-10-02] MEDS: DULoxetine 60 MG CAP PO SCH (10:26)
--- NOTE | 2020-10-02 15:43 | CON ---
DATE OF CONSULTATION: 10/02/2020 INDICATION FOR CONSULTATION: A 69-year-old female with history of chest pain. HISTORY OF PRESENT ILLNESS: This very is a pleasant 69-year-old female, has a known history of Prinzmetal angina. She has been doing relatively well, has been out of the hospital for about a year, but previous to that, has had frequent hospital admissions for chest pain. She said that recently for last few days, she felt somewhat nauseated, has abdominal fullness and really did not feel like eating. On Thursday, she has some fatigue, then she started having some chest discomfort. She took three nitroglycerins. She has continued to have some pressure. She has some indigestion type sensation. She felt like the pain was radiating to her back. She then said the pain rated on a scale of 7/10 and she presented to the emergency room. She also took some nitroglycerin prior to coming, but still has some discomfort. She has undergone a CT scan, which showed no evidence of dissection and no evidence of PE. Her D-dimer was slightly elevated. She has had a LINQ, which is an implantable loop recorder in the past looking for bradycardia because she has had some dizziness, but she has had some bradycardia, but mainly at night. There have been no significant pauses or any significant arrhythmias that would account for this. At this time, her EKG does show some nonspecific changes, which is unchanged from the EKGs that she has had in the past. Her enzymes are negative. She will be scheduled to undergo stress testing to see whether or not there is any evidence of ischemia. She has had a recent cardiac catheterization several years ago which showed normal coronaries, this was in 2013. She did have a 1st diagonal branch with 90% stenosis and this was a small vessel. Otherwise, there was no significant evidence of any other coronary artery disease. Her ejection fraction has been stable. PAST MEDICAL HISTORY: Significant for the coronary artery disease, which is Prinzmetal angina. She has had history of paroxysmal atrial fibrillation. She has hypertension. She has had flutter. I believe she may have had a flutter ablation. She has had hyperlipidemia in the past. She has had a history of pneumonia. She has hypothyroidism. She has a history of asthma. She has had a duodenal ulcer in the past. She has arthritis. She has obesity and hypertension. She has had an appendectomy, , hysterectomy, and multiple cardiac catheterizations, the last was in 2013. She had ablation of atrial fibrillation I believe on several occasions, in 2006, 2007, 2008, 2009. She had a cardioversion actually of the atrial flutter back to sinus rhythm in 2007. She has had some right shoulder impingement and surgical correction in 1997. She has had a left atrial appendage isolation with her ablation in 2009. FAMILY HISTORY: Her father did have some history of congestive heart failure, had bypass surgery. SOCIAL HISTORY: She is . 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 She does not smoke. Caffeine, she just drinks 1 or 2 cups of tea a day. ALLERGIES: SHE SAYS SHE IS ALLERGIC TO ANY PRODUCTS CONTAINING FISH OR SHELLFISH. SHE HAS PROBLEMS WITH MORPHINE, IODINE, IODINE CONTAINING PRODUCTS, ADHESIVE TAPE, ETOMIDATE, TRAZODONE, AND IF SHE DRINKS TOO MUCH CAFFEINE, SHE ALSO HAD SIDE EFFECTS. REVIEW OF SYSTEMS: A 12-point review of systems unremarkable except what was noted in history of present illness. PHYSICAL EXAMINATION: GENERAL: Reveals a well-developed, well-nourished female, who is in no acute distress. She is alert. She is oriented. VITAL SIGNS: Stable. Her blood pressure was 130/70. She is afebrile. Heart rate is 72 and regular, respiratory rate is 18, and O2 saturation is 100% on room air. HEENT: Unremarkable. Carotid pulses are present. There were no bruits. CHEST: Clear to auscultation. There were no rales, rhonchi, or wheezing. CARDIOVASCULAR: Reveals a regular rate and rhythm with normal S1 and S2. There was no S3 or S4. There were no significant murmurs, heaves, thrills, bruits, or rubs. ABDOMEN: Soft, nontender. Positive bowel sounds are present. There is no organomegaly or masses noted. EXTREMITIES: Femoral pulses are present. Extremities showed no clubbing, cyanosis, or edema. NEUROLOGIC: She appears to be fully intact. LABORATORY DATA: WBC is 5.2, hemoglobin 11.1, hematocrit 34.8, platelet count was 237,000. Her troponin-I was 0.015, then 0.014, 0.029, and then 0.024. Her LDL was 54, HDL is 80. Sodium was 135, potassium was 4.0, chloride 103, bicarb was 20, BUN was 7, creatinine 0.78, and blood sugar was 89. EKG is noted for normal sinus rhythm with nonspecific ST-segment changes, but no significant ST-segment elevation was noted. EKG is unchanged from previous EKGs in the past, but does have some nonspecific changes. Chest x-ray and CT scan are unremarkable. At this time, we will schedule her for stress testing. IMPRESSION: 1. Prinzmetal angina with a repeat episode, which appears to be somewhat GI in nature. She does feel some bloating. It may be more GI than cardiac. We will send her again for repeat stress test to rule out evidence of underlying ischemia. We will continue her present medications. 2. History of hypertension. This is stable at this time. 3. History of dyslipidemia. She will continue her present medications. She is doing very well with the Crestor. 4. Probable some GI event. She may need to have further evaluation by GI. I do not see that she has lost any significant weight, but she may have some problems with may be some GI upsets. 5. History of paroxysmal atrial fibrillation. She has remained in sinus rhythm since her last ablation as far as I can tell. At this time, we will await the results of the stress test. If there is anything significantly changed, we will suggest perhaps a cardiac catheterization. PRESENT MEDICATIONS: At home include; 1. Estrace vaginal cream twice a week. 2. Dicyclomine. 3. Ranexa 1000 mg b.i.d. 4. Nitroglycerin as needed sublingual tablets. 5. Isosorbide mononitrate ER 120 mg everyday in the morning. 6. Crestor 5 mg a day. 7. Diltiazem 60 mg once a day. 8. Aspirin 81 mg a day. 9. Tylenol 325 mg two tablets every 6 hours as needed. 10. MiraLAX. 11. She takes vitamin B12. 12. Protonix. 13. Singulair. 14. Xopenex. 15. She also is on Flonase. 16. Zofran as needed. 17. Xanax. 18. Cymbalta. 19. Zyrtec. Job ID: [id number] MTDD
--- NOTE | 2020-10-02 19:32 | PDOC.HOSPP ---
- Subjective Encounter Date: 10/02/20 Subjective: Patient reports she had chest pain last night but now improved. She describes the pain as pressure, and indigestion, ~3/10. Pain is worse with breathing and radiates to the left mid back area. - Objective Vital Signs & Weight: Vital Signs (12 hours) Temp Pulse Resp BP BP Pulse Ox 10/02/20 16:44 97.6 F 84 17 133/72 99 10/02/20 11:55 98.3 F 70 20 111/54 L 100 10/02/20 08:00 98.2 F 75 15 145/67 H 100 Weight Weight 183 lb I&O: 10/01/20 10/02/20 10/03/20 06:59 06:59 06:59 Intake Total 100 Balance 100 Result Diagrams: 10/02/20 04:58 10/02/20 04:59 Radiology Reviewed by me: Yes Hospitalist ROS - Review of Systems Respiratory: denies: shortness of breath Cardiovascular: reports: chest pain - Medication Medications: Active Medications Generic Name Dose Route Start Last Admin Trade Name Freq PRN Reason Stop Dose Admin Acetaminophen 650 mg 10/01/20 11:16 10/02/20 09:06 Acetaminophen 325 Mg Tab PO 650 mg Q4H PRN Administration Headache/Fever/Mild Pain (1-3) Aspirin 81 mg 10/02/20 09:00 10/02/20 08:45 Aspirin 81 Mg Enteric Coated Tablet PO 81 mg DAILY DOUG Administration Duloxetine HCl 60 mg 10/02/20 09:00 10/02/20 10:26 Duloxetine 60 Mg Cap PO 60 mg DAILY DOUG Administration Sodium Chloride 1,000 mls @ 100 mls/hr 10/02/20 08:00 10/02/20 17:22 Normal Saline 0.9% IV Not Given .Q10H DOUG Isosorbide Mononitrate 120 mg 10/02/20 09:00 10/02/20 08:46 Isosorbide Mononitrate Er 60 Mg Tab PO 120 mg DAILY DOUG Administration Nitroglycerin 0.5 inch 10/02/20 06:00 10/02/20 12:52 Nitroglycerin 2% Ointment 1 Inch/1 Gm Packet TOP Not Given Q8HR DOUG Ondansetron HCl 4 mg 10/01/20 11:16 10/02/20 01:33 Ondansetron Pf 4 Mg/2 Ml Vial IVP 4 mg Q8H PRN Administration Nausea/Vomiting Pantoprazole Sodium 40 mg 10/02/20 09:00 10/02/20 08:46 Pantoprazole 40 Mg Tab PO 40 mg BID DOUG Administration Ranolazine 1,000 mg 10/01/20 21:00 10/02/20 08:45 Ranolazine 500 Mg Tab PO 1,000 mg BID DOUG Administration Rosuvastatin Calcium 5 mg 10/01/20 21:00 10/01/20 22:19 Rosuvastatin 5 Mg Tab PO 5 mg HS DOUG Administration Hospitalist Exam Vitals: Vital Signs (12 hours) Temp Pulse Resp BP BP Pulse Ox 10/02/20 16:44 97.6 F 84 17 133/72 99 10/02/20 11:55 98.3 F 70 20 111/54 L 100 10/02/20 08:00 98.2 F 75 15 145/67 H 100 Weight Weight 183 lb General Appearance: NAD Eye: PERRL ENT: moist mucosa Heart: RRR, no murmur Respiratory: CTAB, no wheezes Gastrointestinal: soft, non-tender Extremities: no edema Psychiatric: normal affect Hosp A/P (1) Chest pain Code(s): R07.9 - CHEST PAIN, UNSPECIFIED Status: Acute Plan: Patient had chest pain last night with mild elevation of troponin. EKG showed no acute ischemic changes. CTA chest showed no PE. This is likely from her Prinzmetal angina. She also has some GI symptoms. Plan: -stress test -continue home meds -f/u cardiology recs -GI consulted (2) Prinzmetal angina Code(s): I20.1 - ANGINA PECTORIS WITH DOCUMENTED SPASM Status: Chronic Plan: -cont home meds (3) Afib Code(s): I48.91 - UNSPECIFIED ATRIAL FIBRILLATION Status: Chronic Qualifiers: Atrial fibrillation type: paroxysmal Qualified Code(s): I48.0 - Paroxysmal atrial fibrillation Plan: rate controlled. Plan: -cont home meds (4) HTN (hypertension) Code(s): I10 - ESSENTIAL (PRIMARY) HYPERTENSION Status: Chronic Plan: -cont home med (5) Chronic anemia Code(s): D64.9 - ANEMIA, UNSPECIFIED Status: Chronic Plan: stable -monitor
[2020-10-02] MEDS ORDERED: Non-Formulary Item 1 EACH (Fluticasone Propionate [Flonase Allergy Relief] 9.9 ML Bottle) EA NARE SCH (21:00)
[2020-10-02] MEDS: Rosuvastatin 5 MG TAB PO SCH (21:07)
[2020-10-02] MEDS: Montelukast Sodium 10 mg Tablet PO SCH (21:08)
[2020-10-02] MEDS: Fluticasone Propionate Nasal Spray 16 gm Bottle NASAL SCH (21:09)
[2020-10-03] MEDS: Nitroglycerin 2% Ointment 1 INCH/1 GM Packet TOP SCH ×2 (05:06→12:52)
[2020-10-03 05:54] LABS: Anion Gap 12 mmol/L (10-20); BUN (Urea Nitrogen) 9 mg/dL (9.8-20.1); Calc. Creatinine Clearance 91 mL/min (70-130); Carbon Dioxide 23 mmol/L (23-31); Chloride 104 mmol/L (98-107); Glucose 94 mg/dL (80-115); Magnesium 1.9 mg/dL (1.6-2.6); Potassium 3.6 mmol/L (3.5-5.1); Sodium 135 mmol/L (136-145)
--- NOTE | 2020-10-03 07:20 | CON ---
DATE OF CONSULTATION: 10/02/2020 REASON FOR CONSULT: Nausea and vomiting. HISTORY OF PRESENT ILLNESS: Ms. James is a 69-year-old female, whom I last saw in 2010, at which time she had upper and lower endoscopies, which were negative. She had a remote history of a duodenal ulcer in the past. I have been asked to see her for refractory nausea and vomiting. She presented to the emergency room yesterday with about 3 weeks of chest pain and nausea, poor p.o. intake with early satiety, she complained of pressure-like pain in the chest radiating to the back. She has a history of Prinzmetal's angina at times. When she gets that pain, she will take nitroglycerin and she had taken some recently without much improvement. She has no dyspnea on exertion or diarrhea. She uses MiraLAX p.r.n. for bowel movements. She was ruled out for an WI on initial presentation. She had a CT angio of the chest, which was negative for PE. She was seen by Dr. Rodriguez. She has had a loop recorder which showed no arrhythmias and she had nonspecific changes in her EKG. She reports she had her first part of stress test today which was normal by her report, she will have her second stage tomorrow, but Dr. Rodriguez thinks this is noncardiac. 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 SURGICAL HISTORY: Appendectomy, section, ablation of atrial fib, cardioversions, shoulder impingement surgery in , left atrial occlusion in 2009. FAMILY HISTORY: Congestive heart failure. 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 Does not smoke or drink. ALLERGIES: SHELLFISH, MORPHINE, COUMADIN, AND TRAZODONE. REVIEW OF SYSTEMS: Negative for dysphagia, odynophagia, melena, hematochezia, hematemesis, or weight loss. She does state she also about 60 pounds after I had seen her in 2010 on purpose. HOME MEDICATIONS: 1. Vitamin D. 2. Xanax. 3. Tessalon Perles. 4. Aspirin 81 daily. 5. Tylenol p.r.n. 6. Alprazolam 0.25 mg p.r.n. 7. B12. 8. Cetirizine. 9. Bentyl p.r.n. 10. Cymbalta. 11. Colace. 12. Estradiol. 13. Diltiazem 60 daily. 14. Zofran p.r.n. 15. Nitroglycerin p.r.n. 16. Tramadol p.r.n. 17. MiraLAX. 18. Protonix once a day, which she has increased to twice a day in the past week. 19. Imdur 120 mg daily. 20. Crestor 5 mg daily. 21. Ranexa 1000 mg b.i.d. \Medications here; 1. Albuterol p.r.n. 2. Alprazolam 0.25 p.r.n. 3. Aspirin 81 mg daily. 4. Bentyl 10 q.4 hours p.r.n. 5. Colace. 6. Cymbalta 60 mg daily. 7. Fluticasone nasal spray. 8. Imdur 120 mg daily. 9. Singulair 10 at bedtime. 10. Nitroglycerin ointment. 11. Zofran. 12. Protonix 40 b.i.d. 13. Ranexa 1000 mg b.i.d. 14. Crestor 5 mg at bedtime. 15. . 16. Tramadol. PHYSICAL EXAMINATION: VITAL SIGNS: Blood pressure 126/65, pulse 77, temperature 97.9. GENERAL: She is resting comfortably in bed. She is in no distress. HEENT: Mucous membranes are pink and moist. Oropharynx, no lesions. NECK: Supple. No nodes. No JVD. LUNGS: Clear. HEART: Regular rate and rhythm without clicks or murmurs. ABDOMEN: Soft and nontender. No rebound or guarding. EXTREMITIES: No clubbing, cyanosis, or edema. LABORATORY DATA: Past GI procedures; EGD in 2010, normal. Colonoscopy and EGD in 2008, low MCV, which were normal. Celiac was negative. Capsule endoscopy in 2010, negative. That was all for iron deficiency anemia. in 2013, status post cholecystectomy. Labs here: Hemoglobin 11.1, MCV 95, white count 5.2, platelets 237. D-dimer was 2.25. Sodium 135, potassium 4, and creatinine 7.78. Magnesium 1.5. Troponins max 0.029. Triglycerides 45. Lipase 16. Liver function test is normal. COVID negative on 10/01. Imaging here: Chest CT today. No pulmonary embolism or dissection. Mild cardiomegaly. ASSESSMENT: 1. Symptoms of early satiety and nausea, poor p.o. intake for several weeks, maybe even a few months with no significant weight loss or anemia. Consult was for refractory vomiting. She states she really has not been vomiting. She states she has not been able to eat much and feels full after eating. She has been taking a PPI, has had a negative evaluation for WI on EKGs and troponins and does have a history of Prinzmetal's angina, Cardiology is planning for completion of stress test tomorrow. 2. With regard to her upper GI symptoms, gastric outlet obstruction, reflux, recurrent ulcer is less likely in light of her use of PPIs b.i.d., and her gallbladder has been removed. We will plan for EGD after her stress test is complete. Otherwise, we will resume diet for now. Job ID: [id number]
--- NOTE | 2020-10-03 08:22 | PDOC.HOSPP ---
- Subjective Encounter Date: 10/03/20 Subjective: Patient states her chest pain is better today, she still has her mild chronic chest pain. Lul SOB. She burped and had nausea last night after eating jellow. She will have the second part of her stress test and possible EGD today. - Objective Vital Signs & Weight: Vital Signs (12 hours) Temp Pulse Resp BP BP Pulse Ox 10/03/20 04:17 98.3 F 68 14 112/54 L 97 10/03/20 00:03 98.1 F 75 16 118/62 98 10/02/20 21:02 97.9 F 77 16 126/65 97 Weight Weight 183 lb I&O: 10/02/20 10/03/20 10/04/20 06:59 06:59 06:59 Intake Total 1900 Balance 1900 Result Diagrams: 10/02/20 04:58 10/03/20 05:05 Hospitalist ROS - Review of Systems Cardiovascular: reports: chest pain - Medication Medications: Active Medications Generic Name Dose Route Start Last Admin Trade Name Celena PRN Reason Stop Dose Admin Acetaminophen 650 mg 10/01/20 11:16 10/02/20 21:07 Acetaminophen 325 Mg Tab PO 650 mg Q4H PRN Administration Headache/Fever/Mild Pain (1-3) Aspirin 81 mg 10/02/20 09:00 10/02/20 08:45 Aspirin 81 Mg Enteric Coated Tablet PO 81 mg DAILY DOUG Administration Duloxetine HCl 60 mg 10/02/20 09:00 10/02/20 10:26 Duloxetine 60 Mg Cap PO 60 mg DAILY DOUG Administration Fluticasone Propionate 0 gm 10/02/20 21:00 10/02/20 21:09 Fluticasone Propionate Nasal [place] 16 Gm Bottle NASAL 2 spr HS DOUG Administration Sodium Chloride 1,000 mls @ 100 mls/hr 10/02/20 08:00 10/02/20 23:02 Normal Saline 0.9% IV 1,000 mls .Q10H DOUG Administration Isosorbide Mononitrate 120 mg 10/02/20 09:00 10/02/20 08:46 Isosorbide Mononitrate Er 60 Mg Tab PO 120 mg DAILY DOUG Administration Montelukast Sodium 10 mg 10/02/20 21:00 10/02/20 21:08 Montelukast Sodium 10 Mg Tablet PO 10 mg HS DOUG Administration Nitroglycerin 0.5 inch 10/02/20 06:00 10/03/20 05:06 Nitroglycerin 2% Ointment 1 Inch/1 Gm Packet TOP Not Given Q8HR DOUG Ondansetron HCl 4 mg 10/01/20 11:16 10/02/20 01:33 Ondansetron Pf 4 Mg/2 Ml Vial IVP 4 mg Q8H PRN Administration Nausea/Vomiting Pantoprazole Sodium 40 mg 10/02/20 09:00 10/02/20 21:08 Pantoprazole 40 Mg Tab PO 40 mg BID DOUG Administration Ranolazine 1,000 mg 10/01/20 21:00 10/02/20 21:08 Ranolazine 500 Mg Tab PO 1,000 mg BID DOUG Administration Rosuvastatin Calcium 5 mg 10/01/20 21:00 10/02/20 21:07 Rosuvastatin 5 Mg Tab PO 5 mg HS DOUG Administration Sodium Chloride 10 ml 10/02/20 21:00 10/02/20 21:09 Flush - Normal Saline 10 Ml Syringe IVF Not Given Q12HR DOUG Zolpidem Tartrate 5 mg 10/02/20 08:02 10/03/20 00:07 Zolpidem Tartrate 5 Mg Tab PO 5 mg HS PRN Administration Insomnia Hospitalist Exam Vitals: Vital Signs (12 hours) Temp Pulse Resp BP BP Pulse Ox 10/03/20 04:17 98.3 F 68 14 112/54 L 97 10/03/20 00:03 98.1 F 75 16 118/62 98 10/02/20 21:02 97.9 F 77 16 126/65 97 Weight Weight 183 lb General Appearance: NAD Eye: PERRL ENT: moist mucosa Neck: supple Heart: RRR, II/IV Respiratory: CTAB Gastrointestinal: soft, non-tender, non-distended Extremities: no edema Psychiatric: normal affect Hosp A/P (1) Chest pain Code(s): R07.9 - CHEST PAIN, UNSPECIFIED Status: Acute Plan: Patient reports GI symptoms in addition to her chest pain. Her chest pain is possibly GI related. Plan: -f/u stress test result -possible EGD today -continue PPI, nausea meds and Nitro prn (2) Prinzmetal angina Code(s): I20.1 - ANGINA PECTORIS WITH DOCUMENTED SPASM Status: Chronic Plan: plan: -cont home med (3) Afib Code(s): I48.91 - UNSPECIFIED ATRIAL FIBRILLATION Status: Chronic Qualifiers: Atrial fibrillation type: paroxysmal Qualified Code(s): I48.0 - Paroxysmal atrial fibrillation Plan: rate controlled plan: -cont home med (4) HTN (hypertension) Code(s): I10 - ESSENTIAL (PRIMARY) HYPERTENSION Status: Chronic Plan: Plan: -cont home med (5) Chronic anemia Code(s): D64.9 - ANEMIA, UNSPECIFIED Status: Chronic Plan: stable
[2020-10-03] MEDS ORDERED: DULoxetine 60 MG CAP PO SCH (09:00)
[2020-10-03] MEDS ORDERED: PROPOFOL 200 MG/20 ML VIAL ONE (09:11)
[2020-10-03] MEDS ORDERED: Lidocaine 1% PF 5 ML VIAL ONE (09:11)
--- NOTE | 2020-10-03 10:50 | NM ---
Radionucleotide stress and rest myocardial perfusion scan with CT attenuation correction and SPECT im aging Left ventricular wall motion evaluation and ejection fraction HISTORY: Chest pain. FINDINGS: Lexiscan protocol. There is heterogeneous uptake of radiotracer throughout the left ventric ular myocardium. A small focus of relatively diminished radiotracer uptake involving the anterior wall is noted. Given that there is normal motion, this area likely represents breast attenuation. No reversibility. QGS analysis of gated SPECT images shows no focal wall motion abnormalities. Left ventricular ejectio n fraction calculated at 75%. IMPRESSION : No evidence of ischemia. Normal LVEF.
[2020-10-03] MEDS ORDERED: Ondansetron HCl/PF 4 MG/2 ML Vial IVP PRN (11:52)
[2020-10-03] MEDS ORDERED: Promethazine HCl 25 MG/ML VIAL SLOW IVP PRN (11:52)
[2020-10-03] MEDS ORDERED: Promethazine HCl 25 MG/ML VIAL IM PRN (11:52)
--- NOTE | 2020-10-03 12:21 | OP ---
DATE OF PROCEDURE: 10/03/2020 PROCEDURE: EGD with biopsy. INDICATION FOR PROCEDURE: Chest pain, early satiety, history of duodenal ulceration. DESCRIPTION OF PROCEDURE: After the risks and benefits of the procedure were explained to the patient including risks of bleeding, infection, perforation, reactions to anesthesia, aspiration, and/or pain, informed consent was obtained. The patient was then taken to the endoscopy suite, where she was maneuvered into the left lateral decubitus position followed by introduction of deep sedation via propofol and anesthesia support. Once adequate sedation was achieved, a standard gastroscope was introduced into the mouth with intubation of the esophagus, stomach, and the proximal small intestines with the findings listed below. The patient tolerated the procedure well with no immediate perioperative complications. On conclusion of the procedure, all equipment was removed from the patient and she was transferred to PACU in satisfactory condition. FINDINGS: Esophagus: Numerous small white plaques were seen in the proximal and mid esophagus that were adherent to the lining of the esophageal mucosa and not easily removed with passage of the scope. These were subsequently biopsied for evaluation of probable Estrella esophagitis. Normal-appearing mucosa was then seen in the distal esophagus and the gastroesophageal junction. Both the gastroesophageal junction and diaphragmatic pinch were seen at approximately 38 cm past the incisors. There was no evidence of erosions, ulcerations, mass lesions, or active/recent bleeding. Stomach: Scattered flesh-colored polyps were seen throughout the gastric fundus and body measuring approximately 2 to 5 mm in size. There were no other underlying abnormalities associated with these polyps. Biopsies were taken from a patient portal representative sample and placed in a specimen jar for further evaluation. Otherwise, normal-appearing mucosa was seen in the gastric cardia along the greater curvature, antrum, and incisura. Mild difficulty was experienced traversing the pyloric valve, but was easily traversed within 20 to 30 seconds. There was no evidence of erosions, ulcerations, mass lesions, or active/recent bleeding. Duodenum: Normal-appearing mucosa was seen in both the duodenal bulb and second portion of the duodenum. There was no evidence of erosions, ulcerations, mass lesions, or active/recent bleeding. IMPRESSION: 1. 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 2. Scattered flesh-colored polyps in the stomach consistent with fundic gland polyps, now status post biopsies. 3. No etiology for the patient's early satiety was seen during this examination, although her chest pain could be caused by the Estrella. RECOMMENDATIONS: 1. We would place the patient on fluconazole 200 mg daily and treat for 14 days for Estrella esophagitis. 2. We would place the patient on a full liquid diet today and advance as tolerated. 3. We will continue the patient on PPI daily for history of acid reflux. 4. We would follow up on the biopsy results for confirmation of Estrella esophagitis and/or adenoma detection. 5. We would continue with as needed antiemetic support as you are doing. 6. We would continue to optimize nutrition, especially with the liquid format with either Boost shakes, Ensure shakes, or other liquid supplementation. We will continue to follow. Please call with any questions. Job ID: [id number]
[2020-10-03] MEDS: DULoxetine 60 MG CAP PO SCH (12:51)
[2020-10-03] MEDS: Aspirin 81 mg Enteric Coated Tablet PO SCH (12:51)
[2020-10-03] MEDS ORDERED: Fluconazole 100 MG TAB PO SCH (13:45)
--- NOTE | 2020-10-03 14:04 | PDOC.CPN ---
- Subjective Date: 10/03/20 Time: 14:03 - Review of Systems General: denies: fever/chills, weight/appetite/sleep changes, night sweats, fatigue Respiratory: denies: cough, congestion, shortness of breath, exercise intolerance Cardiovascular: denies: chest pain, palpitation, edema, paroxysmal nocturnal dyspnea, orthopnea Gastrointestinal: denies: nausea, vomiting, diarrhea, constipation, abd pain, GI bleeding Musculoskeletal: denies: pain, tenderness, stiffness, swelling, arthriti s/arthralgias Neurological: denies: numbness, syncope, seizure, weakness - Objective Allergies/Adverse Reactions: Allergies Allergy/AdvReac Type Severity Reaction Status Date / Time morphine Allergy Severe Short of Verified 11/12/19 08:21 Breath adhesive Allergy Intermediate Rash Verified 11/12/19 08:21 fish derived Allergy Verified 11/12/19 08:21 shellfish derived Allergy Rash Verified 11/12/19 08:21 shrimp Allergy Verified 11/12/19 08:21 trazodone Allergy Verified 11/12/19 08:21 etomidate AdvReac Severe Anaphylaxis Verified 11/12/19 08:21 iodine AdvReac Intermediate Rash Verified 11/12/19 08:21 caffeine AdvReac Verified 11/12/19 08:21 Visit Medications: Current Medications Acetaminophen (Acetaminophen 325 Mg Tab) 650 mg PO Q4H PRN PRN Reason: Headache/Fever/Mild Pain (1-3) Last Admin: 10/02/20 21:07 Dose: 650 mg Documented by: Albuterol Sulfate (Albuterol 200 Puff (6.7gm Inhaler)) 2 puff INH Q6H PRN PRN Reason: SOB/WHEEZING/DYSPNEA Alprazolam (Alprazolam 0.25 Mg Tab) 0.25 mg PO DAILY PRN PRN Reason: Anxiety Aspirin (Aspirin 81 Mg Enteric Coated Tablet) 81 mg PO DAILY [facility] Last Admin: 10/03/20 12:51 Dose: 81 mg Documented by: Dicyclomine HCl (Dicyclomine 10 Mg Cap) 10 mg PO Q4H PRN PRN Reason: Diarrhea/Loose Stools Docusate Sodium (Docusate 100 Mg Cap) 100 mg PO BID PRN PRN Reason: Constipation Duloxetine HCl (Duloxetine 60 Mg Cap) 60 mg PO DAILY [facility] Last Admin: 10/03/20 12:51 Dose: 60 mg Documented by: Fentanyl (Fentanyl 100 Mcg/2 Ml Amp) 50 mcg SLOW IVP Q10MIN PRN PRN Reason: Moderate to Severe Pain (6-10) Stop: 10/03/20 14:52 Fluconazole (Fluconazole 100 Mg Tab) 200 mg PO DAILY [facility] Fluconazole (Fluconazole 100 Mg Tab) 200 mg PO NOW [facility] Stop: 10/03/20 15:45 Last Admin: 10/03/20 13:56 Dose: 200 mg Documented by: Fluticasone Propionate (Fluticasone Propionate Nasal [place] 16 Gm Bottle) 0 gm NASAL HS [facility] Last Admin: 10/02/20 21:09 Dose: 2 spr Documented by: Sodium Chloride (Normal Saline 0.9%) 1,000 mls @ 100 mls/hr IV .Q10H [facility] Last Admin: 10/02/20 23:02 Dose: 1,000 mls Documented by: Isosorbide Mononitrate (Isosorbide Mononitrate Er 60 Mg Tab) 120 mg PO DAILY [facility] Last Admin: 10/03/20 12:52 Dose: 120 mg Documented by: Montelukast Sodium (Montelukast Sodium 10 Mg Tablet) 10 mg [address] [facility] Last Admin: 10/02/20 21:08 Dose: 10 mg Documented by: Ondansetron HCl (Ondansetron Pf 4 Mg/2 Ml Vial) 4 mg IVP Q8H PRN PRN Reason: Nausea/Vomiting Last Admin: 10/02/20 01:33 Dose: 4 mg Documented by: Ondansetron HCl (Ondansetron Hcl/Pf 4 Mg/2 Ml Vial) 4 mg IVP ONE PRN PRN Reason: Nausea/Vomiting Stop: 10/03/20 14:52 Pantoprazole Sodium (Pantoprazole 40 Mg Tab) 40 mg PO BID [facility] Last Admin: 10/03/20 12:52 Dose: 40 mg Documented by: Promethazine HCl (Promethazine Hcl 25 Mg/Ml Vial) 6.25 mg SLOW IVP ONE PRN PRN Reason: Nausea/Vomiting Stop: 10/03/20 14:52 Promethazine HCl (Promethazine Hcl 25 Mg/Ml Vial) 6.25 mg IM ONE PRN PRN Reason: Nausea/Vomiting Stop: 10/03/20 14:52 Ranolazine (Ranolazine 500 Mg Tab) 1,000 mg PO BID [facility] Last Admin: 10/03/20 12:51 Dose: 1,000 mg Documented by: Rosuvastatin Calcium (Rosuvastatin 5 Mg Tab) 5 mg PO HS [facility] Last Admin: 10/02/20 21:07 Dose: 5 mg Documented by: Sodium Chloride (Flush - Normal Saline 10 Ml Syringe) 10 ml IVF Q12HR [facility] Last Admin: 10/03/20 12:52 Dose: 10 ml Documented by: Sodium Chloride (Flush - Normal Saline 10 Ml Syringe) 10 ml IVF PRN PRN PRN Reason: Saline Flush Sodium Chloride (Flush - Normal Saline 10 Ml Syringe) 10 ml IVF PRN PRN PRN Reason: Saline Flush Tramadol HCl (Tramadol Hcl 50 Mg Tab) 50 mg PO QIDPRN PRN PRN Reason: Pain Zolpidem Tartrate (Zolpidem Tartrate 5 Mg Tab) 5 mg PO HS PRN PRN Reason: Insomnia Last Admin: 10/03/20 00:07 Dose: 5 mg Documented by: Vital Signs & Weight: Vital Signs Temp Pulse Resp BP Pulse Ox 10/03/20 12:00 97.7 F 66 15 126/64 97 10/03/20 08:37 98.5 F 65 16 111/59 L 99 10/03/20 04:17 98.3 F 68 14 112/54 L 97 Weight 183 lb - Physical Exam HEENT: normocephaly Neck: no JVD/HJR Cardiac: regular rate and rhythm Lungs: clear to auscultation, no wheeze, rales, rhonchi Neuro: cranial nerve 2-12 intact Abdomen: active bowel sounds, soft, non-tender Extremities: no cyanosis, no edema, 2+ LE edema Skin: clear Musculoskeletal: no fluid collection - Labs Result Diagrams: 10/02/20 04:58 10/03/20 05:05 Troponin/CKMB CK-MB (CK-2) 1.1 ng/mL (0-6.6) 10/02/20 04:58 Troponin I 0.024 ng/mL (< 0.028) 10/02/20 07:29 - Telemetry Sinus rhythms and dysrhythmias: sinus rhythm - Assessment/Plan Assessment/Plan: 1. Chest pain. Likely GI, EGD this AM, biopsies taken. Possible Candidias, polyps. 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 Negative stress test for ischemia. resume diltiazem. 2. HTN: stable. 3. Mixed hyperlipidemia. Contine crestor. Cardiac status is stable. I will sign off. If any new changes then please consult again. Ok to d/c when cleared by GI.
[2020-10-03] MEDS: Sodium Chloride 0.9% 1,000 ML IV SCH (15:09)
[2020-10-03] MEDS: Montelukast Sodium 10 mg Tablet PO SCH (20:33)
[2020-10-03] MEDS: Fluticasone Propionate Nasal Spray 16 gm Bottle NASAL SCH (20:33)
[2020-10-03] MEDS: Rosuvastatin 5 MG TAB PO SCH (20:33)
[2020-10-03] MEDS: Diltiazem HCl SR 60 mg Capsule PO SCH (20:35)
[2020-10-04] MEDS ORDERED: Magnesium Oxide 400 MG TAB PO SCH (07:15)
[2020-10-04] MEDS ORDERED: Fluconazole 100 MG TAB PO SCH (09:00)
[2020-10-04] MEDS: Aspirin 81 mg Enteric Coated Tablet PO SCH (09:18)
[2020-10-04] MEDS: DULoxetine 60 MG CAP PO SCH (09:19)
[2020-10-04] MEDS: Diltiazem HCl SR 60 mg Capsule PO SCH (09:20)
--- NOTE | 2020-10-04 10:15 | PRG ---
DATE OF SERVICE: 10/04/2020 SUBJECTIVE: Ms. James is feeling pretty good this morning. She got good sleep last night. She feels chest discomfort has improved a bit. Still with some mild dysphagia, no odynophagia, having started fluconazole yesterday. She is feeling ready to go home. OBJECTIVE: VITAL SIGNS: Temperature 98.4, pulse 68, blood pressure 99/47, and 95% oxygen saturation on room air. GENERAL: In no acute distress. HEART: Regular rate and rhythm. LUNGS: Clear to auscultation bilaterally. ABDOMEN: Soft, nontender to palpation. EXTREMITIES: No peripheral edema. LABORATORY STUDIES: No new labs today. ASSESSMENT AND PLAN: 1. Estrella esophagitis. 2. Chest pain, secondary to Estrella esophagitis. This was demonstrated pretty clearly on upper endoscopy yesterday. Biopsies are pending, but expect they will confirm the diagnosis. Agree with treatment plan outlined by Dr. Berger for fluconazole 100 mg p.o. daily for 2 to 3 weeks. GI will sign off at this time. From a GI perspective, she is okay to discharge from the hospital. Please call back anytime with questions or concerns. Job ID: [id number]
[2020-10-04 12:25] VITALS: BP 106/61; TEMP 97.1
--- NOTE | 2020-10-04 12:49 | PDOC.DS.DS ---
Provider Date of Admission: 10/03/20 14:45 Date of Discharge: 10/04/20 Admitting Provider: Bobby Baum MD Consultations: Cardiology, Gastroentrology Primary Care Physician: SINTIA YU JR, MD Course Hospital Course: Discharge diagnosis: -Rosita esophagitis Hospital Course: Patient is 69 year-old female with PMH of Prinzmetal angina (resulting in 3 CT, in the absence of CAD), paroxysmal, A fib, HTN, GERD, and chronic anemia who was admitted with substernal chest pain and some GI symptoms. Troponin was mildly elevated. CTA chest showed no PE. Stress test showed normal LVEF and no ischemic changes. GI was consulted and EGD was done, it showed rosita esophagitis in the proximal esophagus, scattered polyps in the stomach, biopsy obtained. Patient's symptoms are likely from rosita esophagitis. She will be discharged with Fluconazol. Patient was instructed to take half dose of Ranexa until she completes her antifungal due to interaction. New prescription for the new dose was sent to her pharmacy. Patient was hemodynamicaly stable and was able to tolerate PO intake on the day of discharge. Resuscitation Status: 10/01/20 11:16 Resuscitation Status Routine Resuscitation Status: FULL: Full Resuscitation Discussed with: patient Lab Results: 10/02/20 04:58 10/03/20 05:05 Abnormal Lab Results - Last 48 hrs 10/03/20 05:05: Sodium 135 L, BUN 9 L Vitals: Vital Signs (12 hours) Temp Pulse Resp BP Pulse Ox 10/04/20 12:23 97.1 F L 67 18 106/61 99 10/04/20 08:00 98.4 F 71 16 110/56 L 97 10/04/20 03:48 98.4 F 68 16 99/47 L 95 Weight Weight 183 lb Physical Exam: The patient was seen and examined on the day of discharge. General Appearance: NAD, awake alert Eye: PERRL ENT: moist mucosa Respiratory: CTAB Cardiovascular: RRR, III/IV Gastrointestinal: soft, non-tender, non-distended, normal bowel sounds Extremities: no edema PSYCH: normal affect Problem (1) Chest pain Code(s): R07.9 - CHEST PAIN, UNSPECIFIED Status: Acute (2) Prinzmetal angina Code(s): I20.1 - ANGINA PECTORIS WITH DOCUMENTED SPASM Status: Chronic (3) Afib Code(s): I48.91 - UNSPECIFIED ATRIAL FIBRILLATION Status: Chronic Qualifiers: Atrial fibrillation type: paroxysmal Qualified Code(s): I48.0 - Paroxysmal atrial fibrillation (4) HTN (hypertension) Code(s): I10 - ESSENTIAL (PRIMARY) HYPERTENSION Status: Chronic (5) Chronic anemia Code(s): D64.9 - ANEMIA, UNSPECIFIED Status: Chronic Plan Prescriptions: Diltiazem HCl [Cardizem SR] 60 mg PO BID #60 cap Fluconazole [Diflucan] 200 mg PO DAILY #12 tab Magnesium Oxide [Magnesium Oxide 400] 240 mg PO DAILY #14 powd.pack Ranolazine [Ranexa] 500 mg PO BID #24 tab Home Medications: Medication Instructions Recorded Confirmed Type ALPRAZolam 0.25 mg PO DAILY PRN 10/07/17 10/02/20 History ALPRAZolam [Xanax] 0.5 mg PO DAILY PRN 10/07/17 10/02/20 History Acetaminophen [Tylenol Extra 1,000 mg PO Q4HR PRN 10/07/17 10/02/20 History Strength] Aspirin Chewable [Aspirin Chewable 81 mg PO DAILY 10/07/17 10/02/20 History Tablet] Benzonatate [Tessalon] 100 mg PO TID PRN 10/07/17 10/02/20 History Cetirizine HCl [Zyrtec] 10 mg PO 10/07/17 10/02/20 History DULoxetine [Cymbalta] 60 mg PO DAILY 10/07/17 10/02/20 History Dicyclomine [Bentyl] 10 mg PO Q4HR PRN 10/07/17 10/02/20 History Docusate [Colace] 100 mg PO BID PRN 10/07/17 10/02/20 History Fluticasone Propionate [Flonase 2 spray EA NARE 10/07/17 10/02/20 History Allergy Relief] Isosorbide Mononitrate [Imdur ER] 120 mg PO DAILY 10/07/17 10/02/20 History Levalbuterol Tartrate [Xopenex HFA 2 puff INH Q6HR PRN 10/07/17 10/02/20 History Inhaler] Montelukast Sodium [Singulair] 10 mg PO 10/07/17 10/02/20 History Nitroglycerin [Nitrostat] 0.4 mg SL Q5MIN PRN 10/07/17 10/02/20 History Pantoprazole [Protonix] 40 mg PO BID PRN 10/07/17 10/02/20 History Polyethylene Glycol 3350 [Miralax] 17 gm PO DAILY 10/07/17 10/02/20 History Ranolazine [Ranexa] 1,000 mg PO BID 10/07/17 10/02/20 History Zolpidem Tartrate [Ambien] 5 mg PO HS PRN 10/07/17 10/02/20 History guaiFENesin ER [Mucinex] 600 mg PO BID PRN 10/07/17 10/02/20 History traMADol HCl [Ultram] 50 mg PO QID PRN 10/07/17 10/02/20 History traMADol HCl [Ultram] 100 mg PO QID PRN 10/07/17 10/02/20 History Cyanocobalamin 1000 MCG/ML VIA 1,000 mcg SC Q28D 11/07/17 10/02/20 History [Vitamin B-12] Estradiol [Estrace 0.01% Vaginal 1 gm VAG ASDIR 07/27/19 10/02/20 History Cream] Rosuvastatin [Crestor] 5 mg PO HS 07/27/19 10/02/20 History Diltiazem HCl [Diltiazem 12Hr ER] 60 mg PO 1800 30 Days #30 07/29/19 10/02/20 Rx Cholecalciferol (Vitamin D3) 50 mcg PO DAILY 10/02/20 10/02/20 History [Vitamin D3] Dicyclomine [Bentyl] 20 mg PO QID PRN 10/02/20 10/02/20 History Aspirin [Ecotrin Low Strength] 81 mg PO DAILY tab 10/04/20 Rx Diltiazem HCl [Cardizem SR] 60 mg PO BID #60 cap 10/04/20 Rx Fluconazole [Diflucan] 200 mg PO DAILY #12 tab 10/04/20 Rx Magnesium Oxide [Magnesium Oxide 240 mg PO DAILY #14 powd.pack 10/04/20 Rx 400] Pantoprazole [Protonix] 40 mg PO BID tab 10/04/20 Rx Ranolazine [Ranexa] 500 mg PO BID #24 tab 10/04/20 Rx Allergies: morphine Allergy (Severe, Verified 11/12/19 08:21) Short of Breath throat itching adhesive Allergy (Intermediate, Verified 11/12/19 08:21) Rash fish derived Allergy (Verified 11/12/19 08:21) shellfish derived Allergy (Verified 11/12/19 08:21) Rash and severe SOB shrimp Allergy (Verified 11/12/19 08:21) trazodone Allergy (Verified 11/12/19 08:21) etomidate Adverse Reaction (Severe, Verified 11/12/19 08:21) Anaphylaxis iodine Adverse Reaction (Intermediate, Verified 11/12/19 08:21) Rash swollen airway caffeine Adverse Reaction (Verified 11/12/19 08:21) heart races Discharge Instructions:: Please take Ranexa 500 mg two times a day for the next 12 days. New prescriptions has been sent to your pharmacy. Hold your 1000 mg for now as this has some interaction with Diflucan which is the new medication that you will be taking for the next 12 days. After you complete your Diflucan, you will resume your 1000 mg two times a day Ranexa. You will not be able to cut your Ranexa pill into half. Activity:: Activity as Tolerated Nourishment:: Other (soft diet) Referrals: Cardiac Rehab - [place] [Outside] - 7 Days (Your doctor has referred you to the [facility] Cardiac Re[facility] program. A staff member with Cardiac Rehab will follow up with you after discharge. Please call [phone] with any questions and to schedule an evaluation. Please bring your list of medications and any discharge information you received from the hospital to your eval. Please arrive 10 minutes early to be registered. You will report to the [facility] location for Cardiac Rehab.) Sintia Yu Jr, MD [Primary Care Provider] - Laz Tafoya MD [Active] - 2-3 Weeks Nahomy Rodriguez MD [Active] - 11/01/20 10:30 am Disposition: HOME Quality CORE MEASURES:: N/A
[2020-10-04] MEDS: Acetaminophen 325 MG TAB PO PRN (14:14)
--- NOTE | 2020-10-08 21:39 | PQF ---
CLINICAL DOCUMENTATION CLARIFICATION FORM: Dear : Bobby Baum Date / Time: 10/09/2020 Please exercise your independent, professional judgment in responding to the clarification form. Clinical indicators are provided on the bottom of this form for your review Please check appropriate box(es): [ ] NSTEMI [ ] Type 2 DC secondary to [ ] Prinzmetal angina [ x] Other diagnosis ___Patient's chest pain is most likely from rosita esophagitis. [ ] Unable to determine In addition, please specify: Present on Admission (POA): [ x ] Yes [ ] No [ ] Unable to determine To be completed by CDI/Coding staff for physician review: Present Clinical Indicators - Signs / Symptoms / Labs Results and Location in Medical Record [ x ] NSTEMI, status is acute. Patient presents with substernal chest pain. Troponin mildly elevated initially. Patient has history of DC due to Prinzmetal angina. She received a dose of therapeutic Lovenox in the ED. Trend troponin, telemetry, nitro SL prn. Cardiology consulted H and P [ x ] Troponin Is were 0.034 and 0.037 Laboratory [ x ] Patient had chest pain last night with mild elevation of troponin. EKG showed no acute ischemic changes. This is likely from her Prinzmetal angina. Also has some GI symptoms Progress note 10/02/20 by Bobby Kelley [ x ] Patient was admitted with substernal chest pain and some GI symptoms. GI was consulted and EGD was done, showed rosita esophagitis Discharge summary Present Risk Factors Results and Location in Medical Record [ x ] Hypertension, history of DC with Prinzmetal angina H and P Present Treatments Results and Location in Medical Record [ x ] Nitroglycerin 10/03-10/04 Medications [ x ] Stress test 10/02 Reports [ x ] CTA of the chest Reports [ x ] Cardiac consult Reports CDS/Pig Machine Supervisor Signature: [email or web address] Phone #: Date/Time: 10/09/2020 This is a permanent part of the Medical Record MTDD
--- NOTE | 2020-10-10 14:58 | EKG ---
Test Reason : STAT Blood Pressure : / mmHG Vent. Rate : 076 BPM Atrial Rate : 076 BPM P-R Int : 174 ms QRS Dur : 084 ms QT Int : 446 ms P-R-T Axes : 056 070 -50 degrees QTc Int : 501 ms Sinus rhythm with Premature atrial complexes Prolonged QT Abnormal ECG When compared with ECG of 01-OCT-2020 08:39, (Unconfirmed) Premature atrial complexes are now Present QT has lengthened Confirmed by MOO CAMACHO ([id number]) on 10/10/2020 2:58:17 PM Referred By: Kim MARTÍNEZ Confirmed By:MOO CAMACHO
--- NOTE | 2020-10-13 17:13 | EKG ---
Test Reason : Blood Pressure : / mmHG Vent. Rate : 068 BPM Atrial Rate : 068 BPM P-R Int : 168 ms QRS Dur : 088 ms QT Int : 410 ms P-R-T Axes : 028 044 -44 degrees QTc Int : 435 ms Normal sinus rhythm with sinus arrhythmia Abnormal ECG Confirmed by DAVID ELKINS DO ([id number]), content editor CHAYITO VALENTINO ([id number]) on 10/13/2020 5:13:23 PM Referred By: Confirmed By:DAVID ELKINS DO
== END 2020-10-04 17:16 | disposition home or self-care (01) | DRG 369 ==
LOC: ERS 08:31 → 2SW 10:53 → 3SE 10-02 11:51 → OBSVTOIN 10-03 14:45
PROVIDERS: ADMIT Internal Medicine; ATTEND Internal Medicine
PROC: 0DB68ZX Excision of Stomach, Via Natural or Artificial Opening Endoscopic, Diagnostic (ICD-10-PCS; principal; 2020-10-03)
PROC: 0DB28ZX Excision of Middle Esophagus, Via Natural or Artificial Opening Endoscopic, Diagnostic (ICD-10-PCS; 2020-10-03)
DX: B37.81 Candidal esophagitis (principal); I20.1 Angina pectoris with documented spasm; I48.0 Paroxysmal atrial fibrillation; I10 Essential (primary) hypertension; Z20.822 Contact with and (suspected) exposure to COVID-19; K21.9 Gastro-esophageal reflux disease without esophagitis; K31.7 Polyp of stomach and duodenum; D64.9 Anemia, unspecified; Z88.8 Allergy status to other drugs, medicaments and biological substances; Z91.041 Radiographic dye allergy status; Z91.013 Allergy to seafood; Z88.6 Allergy status to analgesic agent; Z79.82 Long term (current) use of aspirin
CPT/HCPCS: 36415; 71045; 71275; 78452; 80048; 80053; 80061; 82550; 82553; 83690; 83735; 84484; 85025; 85379; 87635; 88305; 88312; 88313; 88342; 90471; 90732; 93005; 93010; 93017; 96372; 96374; 96375; 96376; A9500; G0009; G0378; J1200; J1650; J2405; J2704; J2785; J3475; J7512; Q9967; U0003; U0005

== ENCOUNTER 2020-12-06 18:57 | Inpatient (IN) | payer BC, MEDICARE ==
[2020-12-06 20:09] LABS: #Basophils 0.1 thou/uL (0.0-0.2); #Eosinphils 0.1 thou/uL (0.0-0.7); #Lymphocytes 1.9 thou/uL (1.20-3.40); #Monocytes 0.6 thou/uL (0.11-0.59); #Neutrophils 3.4 thou/uL (1.40-6.50); %Basophils 1.6 % (0.0-1.0); %Eosinophils 0.9 % (0.0-10.0); %Lymphocytes 31.5 % (21.0-51.0); %Monocytes 9.2 % (0.0-10.0); %Neutrophils 56.8 % (42.0-75.0); Hemoglobin 10.5 g/dL (12.0-16.0); Mean Corpuscular HGB CONC 31.6 g/dL (32.0-36.0); Mean Corpuscular Hemoglobin 30.8 pg (27.0-31.0); Mean Corpuscular Volume 97.5 fL (78.0-98.0); Mean Platelet Volume 6.5 fL (7.4-10.4); Platelet Count 308 thou/uL (130-400); RBC Distribution Width 11.8 % (11.5-14.5); Red Blood Cell (RBC) Count 3.41 mill/uL (4.20-5.40)
[2020-12-06 20:32] LABS: INR-International Normal Ratio 0.9; Prothrombin Time 12.7 sec (12.0-14.7)
[2020-12-06 20:47] LABS: ALT (SGPT) 7 U/L (8-55); AST (SGOT) 14 U/L (5-34); Albumin 3.8 g/dL (3.4-4.8); Alkaline Phosphatase 92 U/L (40-110); Anion Gap 13 mmol/L (10-20); BUN (Urea Nitrogen) 8 mg/dL (9.8-20.1); Bilirubin, Total 0.3 mg/dL (0.2-1.2); Calc. Creatinine Clearance 0 mL/min (70-130); Calcium 8.7 mg/dL (7.8-10.44); Carbon Dioxide 23 mmol/L (23-31); Chloride 97 mmol/L (98-107); Globulin 2.8 g/dL (2.4-3.5); Glucose 109 mg/dL (80-115); Magnesium 1.8 mg/dL (1.6-2.6); Potassium 4.2 mmol/L (3.5-5.1); Protein, Total 6.6 g/dL (5.8-8.1); Sodium 129 mmol/L (136-145)
[2020-12-06] MEDS ORDERED: Aspirin Chewable 81 MG TAB ONE (21:29)
[2020-12-06] MEDS ORDERED: Enoxaparin Sodium 80 MG/0.8 ML SYRINGE ONE (21:29)
[2020-12-06] MEDS ORDERED: Acetaminophen 650 MG Suppository PR PRN (23:46)
[2020-12-06] MEDS ORDERED: Acetaminophen 325 MG TAB PO PRN (23:46)
[2020-12-07] MEDS ORDERED: Magnesium 2 GM/50 ML 2 GM in Premix Bag 1 BAG IVPB SCH (00:15)
[2020-12-07 00:17] LABS: Troponin I 0.018 ng/mL (< 0.028)
[2020-12-07 00:48] LABS: Bacteria/HPF None Seen HPF (None Seen); Bilirubin Negative (Negative); Blood, Urine Negative (Negative); Clarity Turbid (Clear); Glucose, Urine (Dipstick) Normal (Negative); Ketone, Urine Negative (Negative); Leukocyte 500 Leu/uL (Negative); Nitrite Negative (Negative); Protein, Urine (Dipstick) Negative (Neg-Trace); RBC/HPF 0-3 HPF (0-3); Specific Gravity, Urine 1.005 (1.002-1.036); Squamous Epithelial 21-50 HPF (0-3); Urobilinogen Normal mg/dL (Less than 2); WBC/HPF 21-50 HPF (0-3)
[2020-12-07 01:20] VITALS: BMI 33.9
[2020-12-07] MEDS: Sodium Chloride 0.9% 1,000 ML IV SCH ×2 (01:41→21:24)
[2020-12-07 01:51] LABS: Troponin I 0.017 ng/mL (< 0.028)
[2020-12-07 03:34] LABS: Bacteria/HPF None Seen HPF (None Seen); Bilirubin Negative (Negative); Blood, Urine Negative (Negative); Clarity Clear (Clear); Glucose, Urine (Dipstick) Normal (Negative); Ketone, Urine Negative (Negative); Leukocyte 75 Leu/uL (Negative); Nitrite Negative (Negative); Protein, Urine (Dipstick) Negative (Neg-Trace); Specific Gravity, Urine 1.005 (1.002-1.036); Squamous Epithelial 0-3 HPF (0-3); Urobilinogen Normal mg/dL (Less than 2); WBC/HPF 21-50 HPF (0-3); pH, Urine 7.5 (5.0-9.0)
[2020-12-07 03:35] LABS: Urine Culture Reflex Yes Yes
[2020-12-07 04:45] LABS: #Basophils 0.1 thou/uL (0.0-0.2); #Eosinphils 0.1 thou/uL (0.0-0.7); #Lymphocytes 2.4 thou/uL (1.20-3.40); #Monocytes 0.6 thou/uL (0.11-0.59); #Neutrophils 3.1 thou/uL (1.40-6.50); %Basophils 1.3 % (0.0-1.0); %Eosinophils 1.2 % (0.0-10.0); %Monocytes 9.6 % (0.0-10.0); %Neutrophils 49.9 % (42.0-75.0); Mean Corpuscular HGB CONC 32.9 g/dL (32.0-36.0); Mean Corpuscular Volume 97.1 fL (78.0-98.0); Mean Platelet Volume 6.4 fL (7.4-10.4); Platelet Count 273 thou/uL (130-400); RBC Distribution Width 11.7 % (11.5-14.5); Red Blood Cell (RBC) Count 3.45 mill/uL (4.20-5.40); White Blood Cell (WBC) Count 6.2 thou/uL (4.8-10.8)
[2020-12-07 05:01] LABS: Lactic Acid 0.8 mmol/L (0.5-2.2)
[2020-12-07 05:13] LABS: Anion Gap 13 mmol/L (10-20); BUN (Urea Nitrogen) 7 mg/dL (9.8-20.1); Calc. Creatinine Clearance 115 mL/min (70-130); Calcium 8.7 mg/dL (7.8-10.44); Carbon Dioxide 22 mmol/L (23-31); Cardiac Risk 1.9 (Less than 4.5); Chloride 97 mmol/L (98-107); Cholesterol 143 mg/dl (< 200 Desired); Glucose 95 mg/dL (80-115); HDL Cholesterol 75 mg/dL (>60 Neg Risk); LDL Cholesterol, Calculated 59 mg/dL; Magnesium 2.4 mg/dL (1.6-2.6); Potassium 4.1 mmol/L (3.5-5.1); Sodium 128 mmol/L (136-145); Triglycerides 45 mg/dL (Less than 150)
[2020-12-07 05:34] LABS: SARS-CoV-2 PCR by NAA Not Detected (NotDetected)
[2020-12-07] MEDS ORDERED: Aspirin 81 mg Enteric Coated Tablet PO SCH (09:00)
[2020-12-07] MEDS ORDERED: Aspirin 325 MG TAB PO SCH (10:45)
[2020-12-07 17:17] LABS: Anion Gap 14 mmol/L (10-20); BUN (Urea Nitrogen) 8 mg/dL (9.8-20.1); Calc. Creatinine Clearance 103 mL/min (70-130); Carbon Dioxide 23 mmol/L (23-31); Chloride 99 mmol/L (98-107); Glucose 85 mg/dL (80-115); Potassium 3.7 mmol/L (3.5-5.1); Sodium 132 mmol/L (136-145)
[2020-12-07] MEDS ORDERED: Docusate 100 MG CAP PO PRN (19:38)
[2020-12-07] MEDS ORDERED: Dicyclomine 10 MG CAP PO PRN (19:38)
[2020-12-07] MEDS ORDERED: Acetaminophen 500 MG TAB PO PRN (19:38)
[2020-12-07] MEDS ORDERED: ALPRAZolam 0.5 MG TAB PO PRN (19:38)
[2020-12-07] MEDS ORDERED: ALPRAZolam 0.25 MG TAB PO PRN (19:38)
[2020-12-07] MEDS ORDERED: Nitroglycerin 0.4 MG TAB (25 Tab Bottle) SL PRN (19:38)
[2020-12-07] MEDS ORDERED: Zolpidem Tartrate 5 MG TAB PO PRN (19:38)
[2020-12-07] MEDS ORDERED: Ondansetron ODT 4 MG TAB PO PRN (19:38)
[2020-12-07] MEDS ORDERED: Albuterol 200 PUFF (6.7GM INHALER) INH PRN (19:58)
[2020-12-07] MEDS ORDERED: Atorvastatin Calcium 40 MG TAB PO SCH (21:00)
[2020-12-07] MEDS ORDERED: Fluticasone Propionate Nasal Spray 16 gm Bottle NASAL SCH (21:00)
[2020-12-07] MEDS ORDERED: Rosuvastatin 5 MG TAB PO SCH (21:00)
[2020-12-07] MEDS ORDERED: Loratadine 10 MG TAB PO SCH (21:00)
[2020-12-07] MEDS ORDERED: Montelukast Sodium 10 mg Tablet PO SCH (21:00)
[2020-12-07] MEDS ORDERED: Estradiol 0.01% Vaginal Cream 42.5 gm Tube VAG SCH (21:00)
[2020-12-08] MEDS ORDERED: Ascorbic Acid 500 mg Chewable Tablet PO SCH (09:00)
[2020-12-08] MEDS ORDERED: Cholecalciferol 1,000 UNITS (25 MCG) TAB PO SCH (09:00)
[2020-12-08] MEDS ORDERED: Aspirin 81 mg Enteric Coated Tablet PO SCH (09:00)
[2020-12-08] MEDS ORDERED: DULoxetine 60 MG CAP PO SCH (09:00)
[2020-12-08] MEDS ORDERED: Aspirin 325 MG TAB PO SCH (09:00)
[2020-12-08] MEDS ORDERED: Zinc Sulfate 220 MG CAP PO SCH (09:00)
[2020-12-08] MEDS ORDERED: Apixaban 5 MG TAB PO SCH (09:00)
[2020-12-08] MEDS: Sodium Chloride 0.9% 1,000 ML IV SCH (10:24)
[2020-12-08] MEDS ORDERED: guaiFENesin ER 600 MG TAB PO PRN (11:47)
[2020-12-08] MEDS ORDERED: traMADol HCl 50 MG TAB PO PRN ×2 (11:47)
[2020-12-08] MEDS ORDERED: Benzonatate 100 MG CAP PO PRN (11:47)
[2020-12-08 11:54] VITALS: BP 141/73; TEMP 97.4
[2020-12-08] MEDS ORDERED: Diltiazem HCl SR 60 mg Capsule PO SCH (18:00)
[2020-12-09] MEDS ORDERED: Magnesium Oxide 250 MG TAB PO SCH (09:00)
[2020-12-09] MEDS ORDERED: Polyethylene Glycol 3350 17 GM Packet PO SCH (09:00)
== END 2020-12-08 15:43 | disposition home or self-care (01) | DRG 308 ==
LOC: ERS 18:57 → 2SE 22:26 → OBSVTOIN 12-07 17:22
PROVIDERS: ADMIT Student in an Organized Health Care Education/Training Program; ATTEND Internal Medicine
DX: I48.0 Paroxysmal atrial fibrillation (principal); G93.41 Metabolic encephalopathy; E87.1 Hypo-osmolality and hyponatremia; B37.81 Candidal esophagitis; G45.9 Transient cerebral ischemic attack, unspecified; Z20.822 Contact with and (suspected) exposure to COVID-19; R26.0 Ataxic gait; E83.42 Hypomagnesemia; E05.90 Thyrotoxicosis, unspecified without thyrotoxic crisis or storm; I25.118 Atherosclerotic heart disease of native coronary artery with other forms of angina pectoris; D50.9 Iron deficiency anemia, unspecified; R00.1 Bradycardia, unspecified; M19.90 Unspecified osteoarthritis, unspecified site; K21.00 Gastro-esophageal reflux disease with esophagitis, without bleeding; K59.09 Other constipation; I49.1 Atrial premature depolarization; E78.5 Hyperlipidemia, unspecified; E86.0 Dehydration; I08.1 Rheumatic disorders of both mitral and tricuspid valves; Z88.5 Allergy status to narcotic agent; Z91.013 Allergy to seafood; Z91.018 Allergy to other foods; Z79.899 Other long term (current) drug therapy; Z79.51 Long term (current) use of inhaled steroids; Z79.82 Long term (current) use of aspirin; Z90.49 Acquired absence of other specified parts of digestive tract; Z90.710 Acquired absence of both cervix and uterus; Z82.49 Family history of ischemic heart disease and other diseases of the circulatory system
CPT/HCPCS: 36415; 70450; 70551; 71045; 80048; 80053; 80061; 81003; 81015; 83605; 83735; 83880; 83930; 83935; 84300; 84443; 84484; 85025; 85610; 87086; 87635; 93005; 93306; 93880; 95712; 95819; 95957; 96372; 96374; G0378; J1650; J3475; U0003; U0005

== ENCOUNTER 2021-01-07 07:44 | Outpatient (CLI) | payer BC, MEDICARE | END 2021-01-07 07:45 | disposition home or self-care (01) | LOC: BICMAMMO 07:44 | PROVIDERS: ATTEND Family Medicine | DX: Z12.31 Encounter for screening mammogram for malignant neoplasm of breast (principal) | CPT/HCPCS: 77063; 77067 ==

== ENCOUNTER 2021-05-09 07:28 | Outpatient (CLI) | payer BC, MEDICARE ==
[2021-05-10 00:34] LABS: SARS-CoV-2 PCR by NAA Not Detected (NotDetected)
== END 2021-05-09 07:29 | disposition home or self-care (01) ==
LOC: LABBT 07:28
PROVIDERS: ATTEND Internal Medicine Cardiovascular Disease
DX: Z01.818 Encounter for other preprocedural examination (principal); I48.91 Unspecified atrial fibrillation; Z20.822 Contact with and (suspected) exposure to COVID-19
CPT/HCPCS: 93005; 93010; U0003; U0005

== ENCOUNTER 2021-05-13 09:36 | Day surgery (SDC) | payer BC ==
[2021-05-13 11:14] LABS: #Lymphocytes 1.2 thou/uL (1.20-3.40); #Monocytes 0.4 thou/uL (0.11-0.59); #Neutrophils 1.8 thou/uL (1.40-6.50); %Basophils 0.3 % (0.0-1.0); %Lymphocytes 35.1 % (21.0-51.0); %Monocytes 11.1 % (0.0-10.0); %Neutrophils 52.5 % (42.0-75.0); Hemoglobin 8.8 g/dL (12.0-16.0); Mean Corpuscular HGB CONC 32.2 g/dL (32.0-36.0); Mean Platelet Volume 7.4 fL (7.4-10.4); Platelet Count 255 thou/uL (130-400); RBC Distribution Width 14.1 % (11.5-14.5); Red Blood Cell (RBC) Count 3.04 mill/uL (4.20-5.40); White Blood Cell (WBC) Count 3.4 thou/uL (4.8-10.8)
[2021-05-13 11:22] LABS: INR-International Normal Ratio 1.2; PTT 35.7 sec (22.9-36.1); Prothrombin Time 15.4 sec (12.0-14.7)
[2021-05-13 11:31] LABS: Anion Gap 12 mmol/L (10-20); BUN (Urea Nitrogen) 6 mg/dL (9.8-20.1); Calc. Creatinine Clearance 0 mL/min (70-130); Carbon Dioxide 22 mmol/L (23-31); Chloride 104 mmol/L (98-107); Glucose 87 mg/dL (80-115); Potassium 4.7 mmol/L (3.5-5.1); Sodium 133 mmol/L (136-145)
[2021-05-13] MEDS ORDERED: PROPOFOL 40 ML ONE (13:30)
== END 2021-05-13 15:09 | disposition home or self-care (01) ==
LOC: CCL 09:36
PROVIDERS: ATTEND Internal Medicine Cardiovascular Disease
PROC: B246ZZ4 Ultrasonography of Right and Left Heart, Transesophageal (ICD-10-PCS; principal; 2021-05-13)
DX: I48.19 Other persistent atrial fibrillation (principal); I34.0 Nonrheumatic mitral (valve) insufficiency; K21.9 Gastro-esophageal reflux disease without esophagitis; M19.90 Unspecified osteoarthritis, unspecified site; Z86.73 Personal history of transient ischemic attack (TIA), and cerebral infarction without residual deficits; Z79.01 Long term (current) use of anticoagulants; Z79.82 Long term (current) use of aspirin; Z79.899 Other long term (current) drug therapy; Z88.5 Allergy status to narcotic agent; Z88.8 Allergy status to other drugs, medicaments and biological substances; Z91.013 Allergy to seafood; Z91.040 Latex allergy status; Z91.041 Radiographic dye allergy status; Z91.048 Other nonmedicinal substance allergy status; Z95.818 Presence of other cardiac implants and grafts
CPT/HCPCS: 36415; 80048; 85025; 85610; 85730; 93312; J2704

== ENCOUNTER 2021-12-23 09:13 | Observation (INO) | payer BC ==
[2021-12-23 10:07] LABS: #Lymphocytes 1.4 thou/uL (1.20-3.40); #Monocytes 0.4 thou/uL (0.11-0.59); #Neutrophils 2.9 thou/uL (1.40-6.50); %Basophils 0.2 % (0.0-1.0); %Eosinophils 0.9 % (0.0-10.0); %Lymphocytes 29.4 % (21.0-51.0); %Monocytes 8.7 % (0.0-10.0); %Neutrophils 60.8 % (42.0-75.0); Hemoglobin 10.3 g/dL (12.0-16.0); Mean Corpuscular HGB CONC 33.3 g/dL (32.0-36.0); Mean Corpuscular Hemoglobin 30.6 pg (27.0-31.0); Mean Corpuscular Volume 91.8 fL (78.0-98.0); Mean Platelet Volume 6.9 fL (7.4-10.4); Platelet Count 304 thou/uL (130-400); Red Blood Cell (RBC) Count 3.37 mill/uL (4.20-5.40); White Blood Cell (WBC) Count 4.7 thou/uL (4.8-10.8)
[2021-12-23 10:26] LABS: ALT (SGPT) 10 U/L (8-55); AST (SGOT) 17 U/L (5-34); Albumin 4.2 g/dL (3.4-4.8); Alkaline Phosphatase 84 U/L (40-110); Anion Gap 12 mmol/L (10-20); BUN (Urea Nitrogen) 7 mg/dL (9.8-20.1); Bilirubin, Total 0.8 mg/dL (0.2-1.2); Calc. Creatinine Clearance 0 mL/min (70-130); Calcium 9.4 mg/dL (7.8-10.44); Carbon Dioxide 26 mmol/L (23-31); Chloride 100 mmol/L (98-107); Globulin 3.1 g/dL (2.4-3.5); Glucose 88 mg/dL (80-115); Potassium 3.8 mmol/L (3.5-5.1); Protein, Total 7.3 g/dL (5.8-8.1); Sodium 134 mmol/L (136-145)
[2021-12-23] MEDS ORDERED: Nitroglycerin 0.4 MG TAB (25 Tab Bottle) SL PRN (13:56)
[2021-12-23] MEDS ORDERED: ALPRAZolam 0.25 MG TAB PO PRN (13:56)
[2021-12-23] MEDS ORDERED: Ondansetron PF 4 MG/2 ML Vial IVP PRN (13:59)
[2021-12-23] MEDS ORDERED: Acetaminophen 325 MG TAB PO PRN (13:59)
[2021-12-23] MEDS ORDERED: Albuterol Sulfate 2.5 mg/3 ml Neb NEB PRN (14:08)
[2021-12-23] MEDS ORDERED: Diltiazem HCl SR 60 mg Capsule PO PRN (14:11)
[2021-12-23 14:12] VITALS: BMI 30.9
[2021-12-23 14:54] LABS: Troponin I Less than 0.010 ng/mL (< 0.028)
[2021-12-23] MEDS ORDERED: Dicyclomine 10 MG CAP PO PRN (16:24)
[2021-12-23 17:19] LABS: Troponin I Less than 0.010 ng/mL (< 0.028)
[2021-12-23] MEDS ORDERED: Rosuvastatin 5 MG TAB PO SCH (21:00)
[2021-12-23] MEDS ORDERED: Montelukast Sodium 10 mg Tablet PO SCH (21:00)
[2021-12-23] MEDS: Apixaban 5 MG TAB PO SCH (22:13)
[2021-12-23] MEDS ORDERED: Fluticasone Propionate Nasal Spray 16 gm Bottle NASAL SCH (23:00)
[2021-12-23 23:10] LABS: SARS-CoV-2 PCR by NAA Not Detected (NotDetected)
[2021-12-24 05:29] LABS: #Eosinphils 0.1 thou/uL (0.0-0.7); #Lymphocytes 1.6 thou/uL (1.20-3.40); #Monocytes 0.5 thou/uL (0.11-0.59); #Neutrophils 1.7 thou/uL (1.40-6.50); %Basophils 0.6 % (0.0-1.0); %Eosinophils 2.1 % (0.0-10.0); %Lymphocytes 41.6 % (21.0-51.0); %Monocytes 11.9 % (0.0-10.0); %Neutrophils 43.8 % (42.0-75.0); Hemoglobin 9.6 g/dL (12.0-16.0); Mean Corpuscular HGB CONC 32.7 g/dL (32.0-36.0); Mean Corpuscular Hemoglobin 30.1 pg (27.0-31.0); Mean Corpuscular Volume 92.1 fL (78.0-98.0); Mean Platelet Volume 6.7 fL (7.4-10.4); Platelet Count 277 thou/uL (130-400); RBC Distribution Width 14.8 % (11.5-14.5); Red Blood Cell (RBC) Count 3.19 mill/uL (4.20-5.40); White Blood Cell (WBC) Count 3.9 thou/uL (4.8-10.8)
[2021-12-24 05:30] LABS: Anion Gap 12 mmol/L (10-20); BUN (Urea Nitrogen) 8 mg/dL (9.8-20.1); Calc. Creatinine Clearance 88 mL/min (70-130); Calcium 8.8 mg/dL (7.8-10.44); Carbon Dioxide 24 mmol/L (23-31); Chloride 101 mmol/L (98-107); Glucose 90 mg/dL (80-115); Potassium 3.9 mmol/L (3.5-5.1); Sodium 133 mmol/L (136-145)
[2021-12-24] MEDS: Apixaban 5 MG TAB PO SCH (08:06)
[2021-12-24] MEDS ORDERED: Aspirin Chewable 81 MG TAB PO SCH (09:00)
[2021-12-24] MEDS ORDERED: DULoxetine 60 MG CAP PO SCH (09:00)
[2021-12-24] MEDS ORDERED: Mag-Al 1200 mg/1200 mg/30 ML UDCUP PO PRN (09:13)
[2021-12-24 15:33] VITALS: BP 141/67; TEMP 98.1
[2021-12-24] MEDS ORDERED: Fluticasone Propionate Nasal Spray 16 gm Bottle NASAL SCH (21:00)
== END 2021-12-24 17:30 | disposition home or self-care (01) ==
LOC: ERS 09:13 → 2SW 12:39
PROVIDERS: ADMIT Internal Medicine; ATTEND Internal Medicine
DX: R07.89 Other chest pain (principal); I20.1 Angina pectoris with documented spasm; I48.0 Paroxysmal atrial fibrillation; I11.9 Hypertensive heart disease without heart failure; E78.5 Hyperlipidemia, unspecified; E03.9 Hypothyroidism, unspecified; K21.9 Gastro-esophageal reflux disease without esophagitis; J45.909 Unspecified asthma, uncomplicated; D51.0 Vitamin B12 deficiency anemia due to intrinsic factor deficiency; I25.2 Old myocardial infarction; I34.0 Nonrheumatic mitral (valve) insufficiency; E66.9 Obesity, unspecified; Z68.31 Body mass index [BMI] 31.0-31.9, adult; Z79.82 Long term (current) use of aspirin; Z79.899 Other long term (current) drug therapy; Z88.5 Allergy status to narcotic agent; Z88.8 Allergy status to other drugs, medicaments and biological substances; Z91.013 Allergy to seafood; Z91.040 Latex allergy status; Z91.041 Radiographic dye allergy status; Z91.048 Other nonmedicinal substance allergy status; Z95.818 Presence of other cardiac implants and grafts; Z20.822 Contact with and (suspected) exposure to COVID-19
CPT/HCPCS: 36415; 71045; 80048; 80053; 84484; 85025; 93005; 93306; U0003; U0005

== ENCOUNTER 2022-01-09 07:46 | Outpatient (CLI) | payer BC | END 2022-01-09 07:47 | disposition home or self-care (01) | LOC: BICMAMMO 07:46 | PROVIDERS: ATTEND Family Medicine | DX: Z12.31 Encounter for screening mammogram for malignant neoplasm of breast (principal) | CPT/HCPCS: 77063; 77067 ==

== ENCOUNTER 2022-01-29 07:49 | Outpatient (CLI) | payer BC ==
[2022-01-29] MEDS ORDERED: Iopamidol 370 76% 100 ML VIAL ONE (09:40)
== END 2022-01-29 07:50 | disposition home or self-care (01) ==
LOC: CT 07:49
PROVIDERS: ATTEND Internal Medicine Cardiovascular Disease
DX: I48.19 Other persistent atrial fibrillation (principal); Z95.818 Presence of other cardiac implants and grafts
CPT/HCPCS: 71275; 82565; Q9967

== ENCOUNTER 2022-06-06 10:04 | Day surgery (SDC) | payer BC ==
[2022-06-06 11:41] LABS: #Lymphocytes 1.3 thou/uL (1.20-3.40); #Monocytes 0.5 thou/uL (0.11-0.59); #Neutrophils 3.4 thou/uL (1.40-6.50); %Basophils 0.4 % (0.0-1.0); %Eosinophils 0.5 % (0.0-10.0); %Lymphocytes 25.2 % (21.0-51.0); %Monocytes 8.8 % (0.0-10.0); %Neutrophils 65.2 % (42.0-75.0); Hemoglobin 9.8 g/dL (12.0-16.0); Mean Corpuscular HGB CONC 31.8 g/dL (32.0-36.0); Mean Corpuscular Hemoglobin 30.2 pg (27.0-31.0); Mean Corpuscular Volume 94.8 fL (78.0-98.0); Mean Platelet Volume 6.7 fL (7.4-10.4); Platelet Count 282 thou/uL (130-400); Red Blood Cell (RBC) Count 3.26 mill/uL (4.20-5.40); White Blood Cell (WBC) Count 5.2 thou/uL (4.8-10.8)
[2022-06-06 11:51] LABS: Anion Gap 12 mmol/L (10-20); BUN (Urea Nitrogen) 8 mg/dL (9.8-20.1); Calc. Creatinine Clearance 0 mL/min (70-130); Calcium 9.2 mg/dL (7.8-10.44); Carbon Dioxide 24 mmol/L (23-31); Chloride 102 mmol/L (98-107); Estimated GFR 82; Glucose 86 mg/dL (80-115); Potassium 4.1 mmol/L (3.5-5.1); Sodium 134 mmol/L (136-145)
[2022-06-06 11:53] LABS: PTT 31.1 sec (22.9-36.1); Prothrombin Time 13.6 sec (12.0-14.7)
[2022-06-06] MEDS ORDERED: Ketamine 50 MG/ML (10ML VIAL) ONE (12:28)
[2022-06-06] MEDS ORDERED: PROPOFOL 200 MG/20 ML VIAL ONE (13:03)
== END 2022-06-06 15:33 | disposition home or self-care (01) ==
LOC: SDC 10:04
PROVIDERS: ATTEND Internal Medicine Cardiovascular Disease
PROC: B246ZZ4 Ultrasonography of Right and Left Heart, Transesophageal (ICD-10-PCS; principal; 2022-06-06)
DX: I48.0 Paroxysmal atrial fibrillation (principal); I08.1 Rheumatic disorders of both mitral and tricuspid valves; I25.2 Old myocardial infarction; K21.9 Gastro-esophageal reflux disease without esophagitis; M19.90 Unspecified osteoarthritis, unspecified site; Z86.73 Personal history of transient ischemic attack (TIA), and cerebral infarction without residual deficits; Z79.02 Long term (current) use of antithrombotics/antiplatelets; Z79.82 Long term (current) use of aspirin; Z79.899 Other long term (current) drug therapy; Z88.4 Allergy status to anesthetic agent; Z88.5 Allergy status to narcotic agent; Z88.8 Allergy status to other drugs, medicaments and biological substances; Z91.013 Allergy to seafood; Z91.041 Radiographic dye allergy status; Z95.818 Presence of other cardiac implants and grafts
CPT/HCPCS: 80048; 85025; 85610; 85730; 93005; 93010; 93312; J2704

== ENCOUNTER 2023-06-30 15:28 | Emergency (ER) | payer MEDICARE, BC ==
[2023-06-30] MEDS ORDERED: Meclizine HCl 25 MG TAB ONE (16:19)
[2023-06-30 16:56] LABS: #Eosinphils 0.1 thou/uL (0.0-0.7); #Monocytes 0.6 thou/uL (0.11-0.59); #Neutrophils 5.2 thou/uL (1.40-6.50); %Basophils 0.3 % (0.0-1.0); %Eosinophils 0.8 % (0.0-10.0); %Lymphocytes 17.2 % (21.0-51.0); %Monocytes 8.8 % (0.0-10.0); %Neutrophils 72.6 % (42.0-75.0); Hematocrit 34.1 % (36.0-47.0); Hemoglobin 11.5 g/dL (12.0-16.0); Mean Corpuscular HGB CONC 33.7 g/dL (32.0-36.0); Mean Corpuscular Hemoglobin 32.5 pg (27.0-31.0); Mean Corpuscular Volume 96.3 fl (78.0-98.0); Mean Platelet Volume 8.9 fL (7.4-10.4); Platelet Count 261 10x3/uL (130-400); RBC Distribution Width 11.9 % (11.5-14.5); Red Blood Cell (RBC) Count 3.54 mill/uL (4.20-5.40); White Blood Cell (WBC) Count 7.2 10x3/uL (4.8-10.8)
[2023-06-30 17:24] LABS: ALT (SGPT) 10 U/L (8-55); AST (SGOT) 16 U/L (5-34); Alkaline Phosphatase 89 U/L (40-110); Anion Gap 14 mmol/L (10-20); BUN (Urea Nitrogen) 11 mg/dL (9.8-20.1); Bilirubin, Total 0.5 mg/dL (0.2-1.2); Calc. Creatinine Clearance 0 mL/min (70-130); Calcium 8.7 mg/dL (7.8-10.44); Carbon Dioxide 22 mmol/L (23-31); Chloride 96 mmol/L (98-107); Estimated GFR 80; Globulin 2.3 g/dL (2.4-3.5); Glucose 131 mg/dL (80-115); Potassium 4.1 mmol/L (3.5-5.1); Protein, Total 6.3 g/dL (5.8-8.1); Sodium 128 mmol/L (136-145)
== END 2023-06-30 18:22 | disposition home or self-care (01) ==
LOC: ERS 15:28
DX: S09.90XA Unspecified injury of head, initial encounter (principal); E87.1 Hypo-osmolality and hyponatremia; I48.91 Unspecified atrial fibrillation; Z79.82 Long term (current) use of aspirin; Z79.899 Other long term (current) drug therapy; W18.30XA Fall on same level, unspecified, initial encounter
CPT/HCPCS: 70450; 72125; 80053; 85025; 93005; 96360

== ENCOUNTER 2023-09-25 09:49 | Inpatient (IN) | payer BC, MEDICARE ==
[2023-09-25 10:30] LABS: #Eosinphils 0.1 thou/uL (0.0-0.7); #Monocytes 0.5 thou/uL (0.11-0.59); #Neutrophils 3.4 thou/uL (1.40-6.50); %Basophils 0.2 % (0.0-1.0); %Eosinophils 0.8 % (0.0-10.0); %Lymphocytes 31.9 % (21.0-51.0); %Monocytes 8.9 % (0.0-10.0); %Neutrophils 57.7 % (42.0-75.0); Hematocrit 32.3 % (36.0-47.0); Mean Corpuscular HGB CONC 34.1 g/dL (32.0-36.0); Mean Corpuscular Hemoglobin 32.9 pg (27.0-31.0); Mean Corpuscular Volume 96.7 fl (78.0-98.0); Mean Platelet Volume 8.8 fL (7.4-10.4); Platelet Count 227 10x3/uL (130-400); RBC Distribution Width 12.3 % (11.5-14.5); Red Blood Cell (RBC) Count 3.34 mill/uL (4.20-5.40); White Blood Cell (WBC) Count 5.9 10x3/uL (4.8-10.8)
[2023-09-25 10:56] LABS: ALT (SGPT) 11 U/L (8-55); AST (SGOT) 20 U/L (5-34); Albumin 3.5 g/dL (3.4-4.8); Alkaline Phosphatase 67 U/L (40-110); Anion Gap 13 mmol/L (10-20); BUN (Urea Nitrogen) 8 mg/dL (9.8-20.1); Bilirubin, Total 0.7 mg/dL (0.2-1.2); Calc. Creatinine Clearance 0 mL/min (70-130); Calcium 8.9 mg/dL (7.8-10.44); Carbon Dioxide 26 mmol/L (23-31); Chloride 95 mmol/L (98-107); Estimated GFR 77; Globulin 2.7 g/dL (2.4-3.5); Glucose 104 mg/dL (80-115); Potassium 4.1 mmol/L (3.5-5.1); Protein, Total 6.2 g/dL (5.8-8.1); Sodium 130 mmol/L (136-145)
[2023-09-25 11:02] LABS: Troponin I 0.053 ng/mL (< 0.028)
[2023-09-25 15:14] LABS: Bacteria/HPF None Seen HPF (None Seen); Bilirubin Negative (Negative); Blood, Urine Negative (Negative); CAUTI Indications for Culture < 2yrs of age; Clarity Clear (Clear); Glucose, Urine (Dipstick) Normal (Negative); Ketone, Urine Negative (Negative); Leukocyte Negative Leu/uL (Negative); Nitrite Negative (Negative); Protein, Urine (Dipstick) Negative (Neg-Trace); RBC/HPF 0-3 HPF (0-3); Specific Gravity, Urine 1.005 (1.002-1.036); Urobilinogen Normal mg/dL (Less than 2); WBC/HPF 0-3 HPF (0-3); pH, Urine 6.5 (5.0-9.0)
[2023-09-25 15:15] LABS: Urine Culture Reflex Yes Yes
[2023-09-25 16:32] VITALS: BMI 32.5
[2023-09-25] MEDS ORDERED: Acetaminophen 325 MG TAB PO PRN (16:38)
[2023-09-25] MEDS ORDERED: Ondansetron PF 4 MG/2 ML Vial IVP PRN (16:38)
[2023-09-25 17:16] LABS: Troponin I 0.026 ng/mL (< 0.028)
[2023-09-25 17:59] LABS: Phosphorus 4.1 mg/dL (2.3-4.7)
[2023-09-25 18:07] LABS: Magnesium 0.9 mg/dL (1.6-2.6)
[2023-09-25] MEDS: Magnesium 2 GM/50 ML(in water) 2 GM in Premix 1 BAG IVPB SCH (19:00)
[2023-09-25] MEDS ORDERED: Magnesium 2 GM/50 ML BAG (IN WATER) ONE (19:01)
[2023-09-25 20:00] LABS: Troponin I 0.042 ng/mL (< 0.028)
[2023-09-25] MEDS ORDERED: Fluticasone Propionate Nasal Spray 16 gm Bottle NASAL PRN (23:56)
[2023-09-26] MEDS ORDERED: Melatonin 3 MG TAB PO PRN (00:57)
[2023-09-26] MEDS: Apixaban 5 MG TAB PO SCH ×2 (01:11→10:53)
[2023-09-26] MEDS: Ranolazine 500 MG ER.TAB PO SCH ×3 (01:11→21:19)
[2023-09-26] MEDS ORDERED: GUAIFENESIN SF SOLN 200 MG/10 ML UDCUP PO PRN (04:31)
[2023-09-26] MEDS ORDERED: Benzonatate 100 MG CAP PO PRN ×2 (04:31→09:21)
[2023-09-26 05:23] LABS: Anion Gap 12 mmol/L (10-20); BUN (Urea Nitrogen) 6 mg/dL (9.8-20.1); Calc. Creatinine Clearance 94 mL/min (70-130); Calcium 8.8 mg/dL (7.8-10.44); Carbon Dioxide 25 mmol/L (23-31); Chloride 100 mmol/L (98-107); Estimated GFR 84; Glucose 95 mg/dL (80-115); Magnesium 2.1 mg/dL (1.6-2.6); Sodium 133 mmol/L (136-145)
[2023-09-26] MEDS ORDERED: Albuterol 200 PUFF (6.7GM INHALER) INH PRN (09:21)
[2023-09-26] MEDS ORDERED: Dicyclomine 10 MG CAP PO PRN (09:21)
[2023-09-26] MEDS ORDERED: Ondansetron ODT 4 MG TAB PO PRN (09:21)
[2023-09-26] MEDS ORDERED: Nitroglycerin 0.4 MG TAB (25 Tab Bottle) SL PRN (09:21)
[2023-09-26] MEDS: DULoxetine 60 MG CAP PO SCH (10:54)
[2023-09-26] MEDS: Cyanocobalamin 1000 MCG/ML VIAL SC SCH (14:32)
[2023-09-26] MEDS: Montelukast Sodium 10 mg Tablet PO SCH (21:19)
[2023-09-26] MEDS: Rosuvastatin 5 MG TAB PO SCH (21:19)
[2023-09-26] MEDS: Loratadine 10 MG TAB PO SCH (21:19)
[2023-09-26] MEDS: ALPRAZolam 0.25 MG TAB PO PRN (21:23)
[2023-09-27 04:31] LABS: Anion Gap 10 mmol/L (10-20); BUN (Urea Nitrogen) 11 mg/dL (9.8-20.1); Calc. Creatinine Clearance 95 mL/min (70-130); Calcium 8.9 mg/dL (7.8-10.44); Carbon Dioxide 27 mmol/L (23-31); Chloride 99 mmol/L (98-107); Estimated GFR 86; Glucose 90 mg/dL (80-115); Sodium 132 mmol/L (136-145)
[2023-09-27] MEDS: Cholecalciferol 1,000 UNITS (25 MCG) TAB PO SCH (10:03)
[2023-09-27] MEDS: Aspirin Chewable 81 MG TAB PO SCH (10:03)
[2023-09-27] MEDS: DULoxetine 60 MG CAP PO SCH (10:04)
[2023-09-27] MEDS: Isosorbide Mononitrate 60 MG ER.TAB PO SCH (10:04)
[2023-09-27] MEDS: predniSONE 50 MG TAB PO SCH (20:57)
[2023-09-28 05:08] LABS: #Monocytes 0.1 thou/uL (0.11-0.59); #Neutrophils 6.1 thou/uL (1.40-6.50); %Basophils 0.1 % (0.0-1.0); %Lymphocytes 8.4 % (21.0-51.0); %Monocytes 1.2 % (0.0-10.0); %Neutrophils 89.9 % (42.0-75.0); Hematocrit 32.5 % (36.0-47.0); Hemoglobin 11.2 g/dL (12.0-16.0); Mean Corpuscular HGB CONC 34.5 g/dL (32.0-36.0); Mean Corpuscular Hemoglobin 33.4 pg (27.0-31.0); Mean Platelet Volume 8.5 fL (7.4-10.4); Platelet Count 244 10x3/uL (130-400); RBC Distribution Width 12.5 % (11.5-14.5); Red Blood Cell (RBC) Count 3.35 mill/uL (4.20-5.40); White Blood Cell (WBC) Count 6.8 10x3/uL (4.8-10.8)
[2023-09-28 05:30] LABS: Anion Gap 12 mmol/L (10-20); BUN (Urea Nitrogen) 14 mg/dL (9.8-20.1); Calc. Creatinine Clearance 87 mL/min (70-130); Calcium 8.9 mg/dL (7.8-10.44); Carbon Dioxide 23 mmol/L (23-31); Chloride 99 mmol/L (98-107); Estimated GFR 77; Glucose 140 mg/dL (80-115); Potassium 4.4 mmol/L (3.5-5.1); Sodium 130 mmol/L (136-145)
[2023-09-28] MEDS: diphenhydrAMINE 50 MG CAP PO SCH (09:03)
[2023-09-28] MEDS ORDERED: Benzonatate 100 MG CAP PO PRN (09:15)
[2023-09-28] MEDS ORDERED: Lidocaine 1% w/Epinephrine 1:100K 20 ML VIAL ONE (12:00)
[2023-09-28] MEDS ORDERED: Cosyntropin 250 MCG VIAL SLOW IVP SCH (14:00)
[2023-09-28] MEDS ORDERED: Iopamidol 370 76% 100 ML VIAL ONE (16:09)
[2023-09-28] MEDS: Acetaminophen 500 MG TAB PO PRN (18:13)
[2023-09-29 04:50] LABS: #Monocytes 0.9 thou/uL (0.11-0.59); #Neutrophils 7.7 thou/uL (1.40-6.50); %Lymphocytes 14.1 % (21.0-51.0); %Monocytes 9.1 % (0.0-10.0); %Neutrophils 76.3 % (42.0-75.0); Hemoglobin 11.9 g/dL (12.0-16.0); Mean Corpuscular Hemoglobin 32.5 pg (27.0-31.0); Mean Corpuscular Volume 95.6 fl (78.0-98.0); Mean Platelet Volume 9.2 fL (7.4-10.4); Platelet Count 299 10x3/uL (130-400); RBC Distribution Width 12.5 % (11.5-14.5); Red Blood Cell (RBC) Count 3.66 mill/uL (4.20-5.40); White Blood Cell (WBC) Count 10.1 10x3/uL (4.8-10.8)
[2023-09-29 05:16] LABS: Anion Gap 12 mmol/L (10-20); BUN (Urea Nitrogen) 14 mg/dL (9.8-20.1); Calc. Creatinine Clearance 87 mL/min (70-130); Calcium 9.4 mg/dL (7.8-10.44); Carbon Dioxide 26 mmol/L (23-31); Chloride 95 mmol/L (98-107); Estimated GFR 77; Glucose 112 mg/dL (80-115); Potassium 3.5 mmol/L (3.5-5.1); Sodium 129 mmol/L (136-145)
[2023-09-29 12:26] VITALS: BP 138/80; TEMP 97.4
[2023-09-29] MEDS ORDERED: Apixaban 5 MG TAB PO SCH (21:00)
== END 2023-09-29 15:35 | disposition home or self-care (01) | DRG 261 ==
LOC: ERS 09:49 → ERHOLD 16:07 → 2SW 16:21 → OBSVTOIN 09-27 14:30
PROVIDERS: ADMIT Internal Medicine; ATTEND Hospitalist
PROC: 0JH602Z Insertion of Monitoring Device into Chest Subcutaneous Tissue and Fascia, Open Approach (ICD-10-PCS; principal; 2023-09-27)
PROC: 0JPT02Z Removal of Monitoring Device from Trunk Subcutaneous Tissue and Fascia, Open Approach (ICD-10-PCS; 2023-09-27)
DX: R55 Syncope and collapse (principal); E87.1 Hypo-osmolality and hyponatremia; I20.1 Angina pectoris with documented spasm; I48.0 Paroxysmal atrial fibrillation; E83.42 Hypomagnesemia; J45.909 Unspecified asthma, uncomplicated; I10 Essential (primary) hypertension; E78.5 Hyperlipidemia, unspecified; Z98.890 Other specified postprocedural states; Z88.5 Allergy status to narcotic agent; Z88.6 Allergy status to analgesic agent; Z91.040 Latex allergy status; Z91.013 Allergy to seafood; Z79.899 Other long term (current) drug therapy; Z88.8 Allergy status to other drugs, medicaments and biological substances; Z90.710 Acquired absence of both cervix and uterus; Z90.49 Acquired absence of other specified parts of digestive tract
CPT/HCPCS: 33285; 33286; 36415; 36416; 71045; 71275; 80048; 80053; 81001; 83735; 83880; 84100; 84484; 85025; 87086; 93005; 93306; 96374; C1764; G0378; J3475; J7512; Q9967

== ENCOUNTER 2024-02-29 08:50 | Outpatient (CLI) | payer MEDICARE | END 2024-02-29 08:51 | disposition home or self-care (01) | LOC: BICMAMMO 08:50 | PROVIDERS: ATTEND Family Medicine | DX: Z12.31 Encounter for screening mammogram for malignant neoplasm of breast (principal); Z13.820 Encounter for screening for osteoporosis; E28.39 Other primary ovarian failure; Z78.0 Asymptomatic menopausal state; M85.89 Other specified disorders of bone density and structure, multiple sites | CPT/HCPCS: 77063; 77067; 77080 ==

== ENCOUNTER 2024-03-09 13:50 | Outpatient (CLI) | payer MEDICARE | END 2024-03-09 13:51 | disposition home or self-care (01) | LOC: CT 13:50 | PROVIDERS: ATTEND Orthopaedic Surgery | DX: M17.0 Bilateral primary osteoarthritis of knee (principal); M25.762 Osteophyte, left knee; M25.462 Effusion, left knee; I70.90 Unspecified atherosclerosis; M71.22 Synovial cyst of popliteal space [Baker], left knee ==

== ENCOUNTER 2024-03-14 08:23 | Outpatient (CLI) | payer MEDICARE ==
[2024-03-14 10:15] LABS: #Basophils 0.01 10x3/uL (0.0-0.2); #Eosinphils 0.05 10x3/uL (0.0-0.5); #Monocytes 0.54 10x3/uL (0.0-1.1); #Neutrophils 4.07 10x3/uL (1.5-8.4); %Basophils 0.2 % (0.0-2.0); %Eosinophils 0.8 % (0.0-6.0); %Lymphocytes 20.9 % (18.0-47.0); %Monocytes 9.1 % (0.0-10.0); %Neutrophils 68.5 % (40.0-75.0); Hematocrit 32.4 % (34.9-44.5); Mean Corpuscular Hemoglobin 32.8 pg (27.0-33.0); Mean Corpuscular Volume 96.7 fL (81.6-98.3); Mean Platelet Volume 9.3 fL (7.4-10.4); Platelet Count 248 10x3/uL (150-450); RBC Distribution Width 12.3 % (11.5-14.5); Red Blood Cell (RBC) Count 3.35 10x6/uL (3.90-5.03); White Blood Cell (WBC) Count 5.9 10x3/uL (3.5-10.5)
[2024-03-14 10:57] LABS: Prothrombin Time 10.6 sec (9.5-12.1)
[2024-03-14 11:12] LABS: Anion Gap 14 mmol/L (10-20); BUN (Urea Nitrogen) 8 mg/dL (9.8-20.1); Calc. Creatinine Clearance 0 mL/min (70-130); Calcium 9.1 mg/dL (7.8-10.44); Carbon Dioxide 24 mmol/L (23-31); Chloride 97 mmol/L (98-107); Estimated GFR 82; Glucose 86 mg/dL (83-110); Potassium 4.3 mmol/L (3.5-5.1); Sodium 131 mmol/L (136-145)
== END 2024-03-14 08:24 | disposition home or self-care (01) ==
LOC: LABBT 08:23
PROVIDERS: ATTEND Orthopaedic Surgery
DX: Z01.818 Encounter for other preprocedural examination (principal); M17.0 Bilateral primary osteoarthritis of knee
CPT/HCPCS: 80048; 85025; 85610; 87081; 93005; 93010